=== PATIENT | female | born 1950 | race Caucasian/White ===

== ENCOUNTER 2017-01-24 13:17 | Inpatient (IN) | payer MEDICARE ==
[~2017-01-24] VITALS: Ht 160 cm; Wt 89.1 kg
[2017-01-24 13:19] VITALS: BP 149/70; PULSE 60; RESP 20; TEMP 97.8; O2SAT 94
--- NOTE | 2017-01-24 13:30 | PD ---
HPI Chief Complaint: Psychiatric Symptoms Time Seen by Provider: 13:29 Travel History International Travel<30 days: No Contact w/Intl Traveler<30days: No Traveled to known affect area: No History of Present Illness HPI 66 year-old female history of hypertension, A. fib, recent diagnosis of bipolar with psychosis, presents to emergency department all entirely for psychiatric evaluation. Patient was discharged 2 weeks ago from a psychiatric facility. It was in that facility that she was newly diagnosed with bipolar with acute psychosis. He was started on Haldol and lithium. She has been taking these as prescribed. The patient tells me that she lost her after 40 years of marriage. She is very sad and depressed. But she has been seeing people come into her house, through the blinds and set up tables. She states that they're playing cards in sitting on her scooter. She states she knows that they should not be real but they appear so real. She states she has threatened them and yellow them. She denies suicidal or homicidal ideations but states that she wants to hurt these people so they leave. She denies any recent illnesses, fever, or chills. She has no other symptoms to report. [facility] Past Medical History Cardiovascular Problems: Yes Cerebrovascular Accident: Yes Respiratory: Yes Social History Tobacco Use: No Allergies-Medications (Allergen,Severity, Reaction): Coded Allergies: No Known Allergies (Unverified , 01/24/17) Reported Meds & Prescriptions Reported Meds & Active Scripts Active Reported Glucosamine-Chondroitin 500-400 Mg Tab 3 Tab PO DAILY Centrum (Multiple Vitamins W/ Minerals) 1 Chew 1 Tab CHEW DAILY [tumeric] 1 Cap PO DAILY Cefuroxime (Cefuroxime Axetil) 500 Mg Tab 500 Mg PO BID Losartan (Losartan Potassium) 25 Mg Tab 25 Mg PO DAILY Haloperidol 5 Mg Tab 5 Mg PO BID Temazepam 15 Mg Cap 15 Mg PO HS PRN Eliquis (Apixaban) 5 Mg Tab 5 Mg PO BID Metoprolol Tartrate 25 Mg Tab 25 Mg PO BID Furosemide 40 Mg Tab 40 Mg PO DAILY Benztropine (Benztropine Mesylate) 0.5 Mg Tab 0.5 Mg PO BID [place] Carbonate 300 Mg Cap 300 Mg PO BID Magnesium Citrate 100 Mg Tab 250 Mg PO DAILY PRN Review of Systems Except as stated in HPI: all other systems reviewed are Neg Physical Exam Narrative GENERAL: Well-nourished elderly female patient, very pleasant, cooperative, in no acute distress. SKIN: Focused skin assessment warm/dry. HEAD: Atraumatic. Normocephalic. EYES: Pupils equal and round. No scleral icterus. No injection or drainage. ENT: No nasal bleeding or discharge. Mucous membranes pink and moist. NECK: Trachea midline. No JVD. CARDIOVASCULAR: Regular rate and irregular rhythm. No murmur appreciated. RESPIRATORY: No accessory muscle use. Clear to auscultation. Breath sounds equal bilaterally. GASTROINTESTINAL: Abdomen soft, non-tender, nondistended. Hepatic and splenic margins not palpable. MUSCULOSKELETAL: No obvious deformities. No clubbing. No cyanosis. No edema. NEUROLOGICAL: Awake and alert. No obvious cranial nerve deficits. Motor grossly within normal limits. Normal speech. Data Data Last Documented VS Vital Signs Date Time Temp Pulse Resp B/P (MAP) Pulse Ox O2 Delivery O2 Flow Rate FiO2 01/24/17 13:32 18 01/24/17 13:19 97.8 60 149/70 (96) 94 Room Air Orders Orders Complete Blood Count With Diff (01/24/17 13:38) Basic Metabolic Panel (Bmp) (01/24/17 13:38) Urinalysis - C+S If Indicated (01/24/17 13:38) Psych Screen (01/24/17 13:38) Drug Screen, Random Urine (01/24/17 13:38) Alcohol (Ethanol) (01/24/17 13:38) [place] (Li) (01/24/17 14:20) Labs Laboratory Tests Test 01/24/17 13:51 01/24/17 14:30 White Blood Count 9.2 TH/MM3 Red Blood Count 4.00 MIL/MM3 Hemoglobin 12.3 GM/DL Hematocrit 37.5 % Mean Corpuscular Volume 93.8 FL Mean Corpuscular Hemoglobin 30.7 PG Mean Corpuscular Hemoglobin Concent 32.7 % Red Cell Distribution Width 14.0 % Platelet Count 242 TH/MM3 Mean Platelet Volume 7.1 FL Neutrophils (%) (Auto) 77.3 % Lymphocytes (%) (Auto) 14.0 % Monocytes (%) (Auto) 5.1 % Eosinophils (%) (Auto) 3.1 % Basophils (%) (Auto) 0.5 % Neutrophils # (Auto) 7.1 TH/MM3 Lymphocytes # (Auto) 1.3 TH/MM3 Monocytes # (Auto) 0.5 TH/MM3 Eosinophils # (Auto) 0.3 TH/MM3 Basophils # (Auto) 0.0 TH/MM3 CBC Comment DIFF FINAL Differential Comment Blood Urea Nitrogen 20 MG/DL Creatinine 1.35 MG/DL Random Glucose 186 MG/DL Calcium Level 9.0 MG/DL Sodium Level 142 MEQ/L Potassium Level 3.7 MEQ/L Chloride Level 107 MEQ/L Carbon Dioxide Level 28.8 MEQ/L Anion Gap 6 MEQ/L Estimat Glomerular Filtration Rate 39 ML/MIN Ethyl Alcohol Level LESS THAN 3 MG/DL [place] Level 0.6 MEQ/L MDM Medical Decision Making Medical Screen Exam Complete: Yes Emergency Medical Condition: Yes Medical Record Reviewed: Yes Differential Diagnosis Mood disorder versus personality disorder versus acute psychosis versus electrolyte abnormality versus UTI Narrative Course 66 year-old female presents to the emergency department voluntarily for psychiatric evaluation. Patient appears without distress. She is very call and cooperative during my time with her. She states that this time she has not seen the people or hearing them but they were in her house last night. Laboratory Tests Test 01/24/17 13:51 01/24/17 14:30 White Blood Count 9.2 TH/MM3 Red Blood Count 4.00 MIL/MM3 Hemoglobin 12.3 GM/DL Hematocrit 37.5 % Mean Corpuscular Volume 93.8 FL Mean Corpuscular Hemoglobin 30.7 PG Mean Corpuscular Hemoglobin Concent 32.7 % Red Cell Distribution Width 14.0 % Platelet Count 242 TH/MM3 Mean Platelet Volume 7.1 FL Neutrophils (%) (Auto) 77.3 % Lymphocytes (%) (Auto) 14.0 % Monocytes (%) (Auto) 5.1 % Eosinophils (%) (Auto) 3.1 % Basophils (%) (Auto) 0.5 % Neutrophils # (Auto) 7.1 TH/MM3 Lymphocytes # (Auto) 1.3 TH/MM3 Monocytes # (Auto) 0.5 TH/MM3 Eosinophils # (Auto) 0.3 TH/MM3 Basophils # (Auto) 0.0 TH/MM3 CBC Comment DIFF FINAL Differential Comment Blood Urea Nitrogen 20 MG/DL Creatinine 1.35 MG/DL Random Glucose 186 MG/DL Calcium Level 9.0 MG/DL Sodium Level 142 MEQ/L Potassium Level 3.7 MEQ/L Chloride Level 107 MEQ/L Carbon Dioxide Level 28.8 MEQ/L Anion Gap 6 MEQ/L Estimat Glomerular Filtration Rate 39 ML/MIN Ethyl Alcohol Level LESS THAN 3 MG/DL [place] Level 0.6 MEQ/L Patient has not yet given us urine, however at this time she will be medically cleared to undergo psychiatric screening for further evaluation and disposition. Mental health screening discussed with the patient. Psychiatric screen ordered. Diagnosis Primary Impression: Hallucinations Condition: Stable Nkechi Perdomo Jan 24, 2017 13:30
[2017-01-24] MEDS ORDERED: LITH300C2 PO (13:44)
[2017-01-24] MEDS ORDERED: HALO5TAB PO (13:50)
[2017-01-24] MEDS ORDERED: APIX5TAB PO (13:50)
[2017-01-24] MEDS ORDERED: TEMA15CA PO (13:50)
[2017-01-24] MEDS ORDERED: BENZ0.5T PO (13:50)
[2017-01-24] MEDS ORDERED: LOSA25TA PO (13:50)
[2017-01-24] MEDS ORDERED: FURO40TA PO (13:50)
[2017-01-24] MEDS ORDERED: CEFU1TAB20 PO (13:50)
[2017-01-24] MEDS ORDERED: CENTCHW4 CHEW (13:50)
[2017-01-24] MEDS ORDERED: tumeric PO (13:50)
[2017-01-24] MEDS ORDERED: MAGN100T2 PO (13:50)
[2017-01-24] MEDS ORDERED: GLUC500T4 PO (13:50)
[2017-01-24] MEDS ORDERED: METO25TA3 PO (13:50)
[2017-01-24 14:01] LABS: AUTOMATED NEUTROPHIL # 7.1 TH/MM3 (1.8-7.7); BASOPHIL % 0.5 % (0.0-2.0); EOSINOPHIL # 0.3 TH/MM3 (0-0.4); EOSINOPHIL % 3.1 % (0.0-4.0); HEMATOCRIT 37.5 % (35.0-46.0); HEMO FLAGS DIFF FINAL; LYMPHOCYTE # 1.3 TH/MM3 (1.0-4.8); MEAN CELL VOLUME 93.8 FL (80.0-100.0); MEAN CORPUSCULAR HEMOGLOBIN 30.7 PG (27.0-34.0); MEAN CORPUSCULAR HGB CONC 32.7 % (32.0-36.0); MONO % 5.1 % (0.0-8.0); NEUT % 77.3 % (16.0-70.0); PLATELET COUNT 242 TH/MM3 (150-450); WHITE BLOOD COUNT 9.2 TH/MM3 (4.0-11.0)
[2017-01-24 14:20] LABS: ANION GAP 6 MEQ/L (5-15); BICARBONATE 28.8 MEQ/L (21.0-32.0); BLOOD UREA NITROGEN 20 MG/DL (7-18); CHLORIDE 107 MEQ/L (98-107); GLOMERULAR FILTRATION RATE 39 ML/MIN (>89); POTASSIUM 3.7 MEQ/L (3.5-5.1); SODIUM (NA) 142 MEQ/L (136-145)
[2017-01-24 14:32] LABS: ALCOHOL LESS THAN 3 MG/DL (0-5)
[2017-01-24 16:50] VITALS: BP 114/55; PULSE 61; RESP 18; O2SAT 96
[2017-01-24 17:51] LABS: BACTERIA, URINE RARE /hpf; BLOOD, URINE SMALL (NEG); COMMENT (UR) CULT NOT INDICATED; CULTURE IF INDICATED CULT NOT INDICATED; GLUCOSE,URINE NEG (NEG); HYALINE CAST, URINE 13 /lpf (RARE); KETONE, URINE NEG (NEG); MUCUS URINE FEW /lpf (OCC); NITRITE,URINE NEG (NEG); SQUAMOUS EPITHELIAL CELL URINE 4 /hpf (0-5); URINE COLOR YELLOW (YELLW/STRAW)
[2017-01-25 08:14] VITALS: BP 141/64; PULSE 55; RESP 18; TEMP 97.8; O2SAT 98
[2017-01-25] MEDS: APIXABAN 5 MG TABLET PO SCH ×2 (09:55→21:00)
[2017-01-25] MEDS: FUROSEMIDE 40 MG TAB PO SCH (09:55)
[2017-01-25] MEDS: LITHIUM CARBONATE 300 MG TAB PO SCH ×2 (09:55→21:00)
[2017-01-25] MEDS: METOPROLOL TARTRATE 25 MG TAB PO SCH ×2 (09:55→21:00)
[2017-01-25] MEDS: LOSARTAN 25 MG TAB PO SCH (09:55)
[2017-01-25] MEDS: CEFUROXIME AXETIL 500 MG TAB PO SCH ×2 (09:56→21:00)
[2017-01-25] MEDS: HALOPERIDOL 5 MG TAB PO SCH ×2 (09:56→21:00)
[2017-01-25] MEDS: BENZTROPINE MESYLATE 1 MG TAB PO SCH ×2 (09:56→21:00)
[2017-01-25 19:55] VITALS: BP 120/58; PULSE 55; RESP 18; TEMP 97.8; O2SAT 97
[2017-01-25 21:02] VITALS: BP 136/64; PULSE 51; RESP 18; O2SAT 97
[2017-01-25] MEDS ORDERED: MAGNESIUM HYDROXIDE SUSP 30 ML CUP PO PRN (21:30)
[2017-01-25] MEDS ORDERED: ALUMINUM/MAGNESIUM/SIMETH 30 ML CUP PO PRN (21:30)
[2017-01-25 22:45] VITALS: BP 180/84; PULSE 60; RESP 19; TEMP 97.4; O2SAT 96
[2017-01-25 23:45] VITALS: BP 144/75; PULSE 59
[2017-01-26 04:15] VITALS: BP 140/75; PULSE 80; RESP 18
[2017-01-26 06:35] VITALS: BP 141/63; PULSE 55; RESP 16; TEMP 97.2; O2SAT 100
[2017-01-26] MEDS: METOPROLOL TARTRATE 25 MG TAB PO SCH ×2 (09:00→21:11)
[2017-01-26] MEDS: LITHIUM CARBONATE 300 MG TAB PO SCH ×2 (10:04→21:14)
[2017-01-26] MEDS: APIXABAN 5 MG TABLET PO SCH ×2 (10:05→21:12)
[2017-01-26] MEDS: CEFUROXIME AXETIL 500 MG TAB PO SCH ×2 (10:05→21:13)
[2017-01-26] MEDS: FUROSEMIDE 40 MG TAB PO SCH (10:06)
[2017-01-26] MEDS: BENZTROPINE MESYLATE 1 MG TAB PO SCH ×2 (10:06→21:12)
[2017-01-26] MEDS: HALOPERIDOL 5 MG TAB PO SCH ×2 (10:06→21:13)
[2017-01-26] MEDS: LOSARTAN 25 MG TAB PO SCH (10:06)
[2017-01-26] MEDS ORDERED: TURM500C4 PO (12:29)
--- NOTE | 2017-01-26 12:40 | HHI.HP ---
Provisional Diagnosis Admission Date Jan 25, 2017 at 20:54 [place] I. Bipolar disorder Certification of Person's Competence To Provide Express and Informed Consent I have personally examined Deidra Wong , a person being served at [facility] on, Jan 26, 2017 12:18. Express and informed consent means consent voluntarily given in writing, by a competent person, after sufficient explanation and disclosure of the subject matter involved to enable the person to make a knowing and willful decision without any element of force, fraud, deceit, duress, or other form of constraint or coercion. This person is 18 years of age or older, is not now known to be incompetent to consent to treatment with a guardian advocate, and does not have a health care surrogate or proxy currently making medical treatment decisions. I have found this person to be one of the following: [] Competent to provide express and informed consent, as defined above, for voluntary admission to this facility and is competent to provide express and informed consent for treatment. He/she has the consistent capacity to make well reasoned, willful, and knowing decisions concerning his or her medical or mental health treatment. The person fully and consistently understands the purpose of the admission for examination/placement and is fully capable of personally exercising all rights assured [place] [] Incompetent to provide express and informed consent to voluntary admission, and this is incompetent to provide express and informed consent to treatment. The person must be transferred to involuntary status and a petition for a guardian advocate filed with the Circuit Court. [X] Refusing to provide express and informed consent to voluntary admission but is competent to provide express and informed consent for treatment. The person must be discharged or transferred to involuntary status. Form shall be completed within 24 hours of a person's arrival at the receiving facility and filed in the clinical record of each person: 1. Admitted on a voluntary basis 2. Permitted to provide express and informed consent to his/her own treatment 3. Allowed to transfer from involuntary to voluntary status 4. Prior to permitting a person to consent to his or her own treatment after having been previously found incompetent to consent to treatment. History of Present Illness Capacity: Has Capacity HPI The patient is a 66 year-old woman, domiciled with her son, , with psychiatric history of recently diagnosed bipolar disorder, she was recently hospitalized in [facility], she has established outpatient care in [facility], she is on Haldol 5 mg twice a day, lithium 300 mg twice a day her lithium level here at [facility] in the ER was 0.5, And months ago, medical history of history of hypertension, A. fib, prescribed. The patient tells me that she lost her after 40 years of marriage. On psychiatric evaluation today patient reports that She is very sad and depressed. But she has been seeing people come into her house, through the blinds and set up tables. She states that they 're playing cards in sitting on her scooter. She states she knows that they should not be real but they appear so real. She states she has threatened them and yellow them. She denies suicidal or homicidal ideations but states that she wants to hurt these people so they leave. Her daughter, Donna cross by phone for collateral information, added that since the patient was discharged from her last hospitalization she has been continuously having visual hallucinations that every time has been more intensive and more frequent. She says that the patient also has been talking to herself, very disorganized, engaging herself in a lot of activities at nighttime, sleeping very poorly and sometimes not taking her medications. She says that her visual hallucinations are very anxiety provoking and the patient is very afraid and paranoid about her perceptual disturbances. The patient denies the use of alcohol and illicit drugs. She is oriented 3, no attention deficit or fluctuation of consciousness at this moment. Review of Systems Constitutional: DENIES: Diaphoretic episodes, Fatigue, Fever, Weight gain, Weight loss, Chills, Dizziness, Change in appetite, Night Sweats Endocrine: DENIES: Abnorml menstrual pattern, Heat/cold intolerance, Polydipsia , Polyuria, Polyphagia Eyes: DENIES: Blurred vision, Diplopia, Eye inflammation, Eye pain, Vision loss , Photosensitivity, Double Vision Ears, nose, mouth, throat: DENIES: Tinnitus, Hearing loss, Vertigo, Nasal discharge, Oral lesions, Throat pain, Hoarseness, Ear Pain, Running Nose, Epistaxis, Sinus Pain, Toothache, Odynophagia Respiratory: DENIES: Apneas, Cough, Snoring, Wheezing, Hemoptysis, Sputum production, Shortness of breath Cardiovascular: DENIES: Chest pain, Palpitations, Syncope, Dyspnea on Exertion , PND, Lower Extremity Edema, Orthopnea, Claudication Gastrointestinal: DENIES: Abdominal pain, Black stools, Bloody stools, Constipation, Diarrhea, Nausea, Vomiting, Difficulty Swallowing, Anorexia Musculoskeletal: DENIES: Joint pain, Muscle aches, Stiffness, Joint Swelling, Back pain, Neck pain Integumentary: DENIES: Abnormal pigmentation, Pruritus, Rash, Nail changes, Breast masses, Breast skin changes, Nipple discharge Hematologic/lymphatic: DENIES: Bruising, Lymphadenopathy Immunologic/allergic: DENIES: Eczema, Urticaria Neurologic: DENIES: Abnormal gait, Headache, Localized weakness, Paresthesias, Seizures, Speech Problems, Tremor, Poor Balance Psychiatric: COMPLAINS OF: Anxiety, Mood changes, Depression, Hallucinations, Delusions Past Psych History Violence risk - self (6 mos) Increased Substance Abuse History Drugs/Alcohol past 12 months Patient denies the use of alcohol and illicit drugs Past Family Social History Coded Allergies: No Known Allergies (Unverified , 01/24/17) Reported Medications Magnesium Citrate (Magnesium Citrate) 100 Mg Tab, 250 MG PO DAILY Y for CONSTIPATION, TAB 0 Refills 01/24/17 Glucosamine-Chondroitin (Glucosamine-Chondroitin) 500-400 Mg Tab, 3 TAB PO DAILY for Herbal Supplements, TAB 0 Refills 01/24/17 Multiple Vitamins W/ Minerals (Centrum) 1 Chew, 1 TAB CHEW DAILY for Nutritional Supplement, TAB 0 Refills 01/24/17 [tumeric] No Conflict Check, 1 CAP PO DAILY 01/24/17 Cefuroxime (Cefuroxime) 500 Mg Tab, 500 MG PO BID for Infection, TAB 0 Refills 01/24/17 Losartan (Losartan) 25 Mg Tab, 25 MG PO DAILY for Blood Pressure Management, # 30 TAB 0 Refills 01/24/17 Haloperidol (Haloperidol) 5 Mg Tab, 5 MG PO BID, TAB 0 Refills 01/24/17 Temazepam (Temazepam) 15 Mg Cap, 15 MG PO HS Y for INSOMNIA, #30 CAP 0 Refills 01/24/17 Apixaban (Eliquis) 5 Mg Tab, 5 MG PO BID for Blood Clot Prevention, #60 TAB 0 Refills 01/24/17 Metoprolol Tartrate (Metoprolol Tartrate) 25 Mg Tab, 25 MG PO BID, #60 TAB 0 Refills 01/24/17 Furosemide (Furosemide) 40 Mg Tab, 40 MG PO DAILY, #30 TAB 0 Refills 01/24/17 Benztropine (Benztropine) 0.5 Mg Tab, 0.5 MG PO BID, #60 TAB 0 Refills 01/24/17 [place] Carbonate ([place] Carbonate) 300 Mg Cap, 300 MG PO BID, CAP 0 Refills 01/24/17 Current Medications Medications (Trade) Dose Ordered Sig/Dc Route Start Time Stop Time Status Last Admin (Eliquis) 5 mg BID PO 01/25/17 09:00 01/26/17 10:05 (Cogentin) 0.5 mg BID PO 01/25/17 09:00 01/26/17 10:06 (Ceftin) 500 mg BID PO 01/25/17 09:00 01/26/17 10:05 (Lasix) 40 mg DAILY PO 01/25/17 09:00 01/26/17 10:06 (Haldol) 5 mg BID PO 01/25/17 09:00 01/26/17 10:06 (Lithotabs) 300 mg BID PO 01/25/17 09:00 01/26/17 10:04 (Cozaar) 25 mg DAILY PO 01/25/17 09:00 01/26/17 10:06 (Lopressor) 25 mg BID PO 01/25/17 09:00 01/25/17 09:55 (Tylenol) 650 mg Q4H PRN PO 01/25/17 21:30 (Milk Of Magnesia Liq) 30 ml DAILY PRN PO 01/25/17 21:30 (Mag-Al Plus Susp Liq) 30 ml Q6H PRN PO 01/25/17 21:30 (Ativan) 1 mg Q8H PRN PO 01/25/17 21:30 Family History She has a son that is bipolar Social History Patient was born and raised in [place], she lives with her son, he has 2 kids, she is , unemployed, highest level of education is high school Patient's Strengths (min. 2) Family support Physical Exam Vital Signs Vital Signs Date Time Temp Pulse Resp B/P (MAP) Pulse Ox O2 Delivery O2 Flow Rate FiO2 01/26/17 06:35 97.2 55 16 141/63 (89) 100 01/25/17 21:02 Room Air Lab Results Test 01/25/17 15:00 [place] Level 0.5 MEQ/L Mental Status Examination Appearance woman, overweight, superficially cooperative, guarded Speech: Hesitant Orientation: x3 Memory: Unremarkable Thought Process: Flight of Ideas, Goal Directed, Linear Thought Content: Bizarre thinking, Paranoid Language Fluent and spontaneous Fund of Knowledge Adequate for level of education Hallucination Type: Visual Attention and Concentration: Good Suicidal Ideation: No Previous Suicide Attempts: No Homicidal Ideation: No Previous Homicide Attempts: No Judgment: Poor Affect: Irritable Mood: Sad Motor Activity: Normal gait Assessment & Plan Problem List: (1) Unspecified psychosis ICD Codes: F29 - Unspecified psychosis not due to a substance or known physiological condition Assessment & Plan: On psychiatric evaluation today the patient is irritable, with guarded, just superficially cooperative with evaluation. Patient reports ongoing increasing in intensity, frequency visual hallucinations of people coming inside her house. Patient describes these visual hallucinations as very vivid, frightening and anxiety provoking. Patient also reports depression in the context of recent of her months ago. She denies suicidal and was ideation. Her daughter adds that ideationally to the visual hallucinations that seems to be perturbing the patient every day, patient also has been disorganized, talking to herself, very paranoid, engaging in multiple time- consuming and purposeless activity at nighttime, sleeping poorly and most probably not taking her medications. She also describes the patient has been confused and disoriented frequently. Patient is not a be admitted in psychiatry for stabilization and safety. Will consult hospitalist to continue investigating potential medical causes of psychosis and delirium. Reconsult psychiatry for second opinion. Delirium versus psychosis versus adonay are in the differential. Will restart lithium 300 mg twice a day, Haldol 5 mg twice a day. Extensive support, motivation and psychoeducation provided. tar pot worker for psychosocial assessment, to coordinate a safe discharge, individual and group psychotherapy. Assessment & Plan Estimated LOS: Jer Singleton MD Jan 26, 2017 12:40
--- NOTE | 2017-01-26 15:54 | PD.CONS ---
[facility] Requested By Dr. Sánchez Reason for Consult Hypertension and medical management Primary Care Physician Moncho Gaxiola MD Diagnoses: History of Present Illness 66-year-old female history of bipolar disorder, age fibrillation, hypertension who presented to you to psychosis in inpatient psychiatry unit. [facility] consulted for hypertension and medical management. Patient had no concerns expect she wants to go home. All review of systems reviewed and all negative. Past Family Social History Allergies: Coded Allergies: No Known Allergies (Unverified , 01/24/17) Past Medical History Hypertension atrial of fibrillation Past Surgical History Denying past surgical history Reported Medications Current Medications Apixaban (Eliquis) 5 mg BID PO Last administered on 01/26/17 10:05; Start at 09:00 Benztropine Mesylate (Cogentin) 0.5 mg BID PO Last administered on 01/26/17 10 :06; Start 01/25/17 at 09:00 Cefuroxime Axetil (Ceftin) 500 mg BID PO Last administered on 01/26/17 10:05; Start 01/25/17 at 09:00 Furosemide (Lasix) 40 mg DAILY PO Last administered on 01/26/17 10:06; Start 01/25/17 at 09:00 Haloperidol (Haldol) 5 mg BID PO Last administered on 01/26/17 10:06; Start at 09:00 [place] Carbonate (Lithotabs) 300 mg BID PO Last administered on 01/26/17 10: 04; Start 01/25/17 at 09:00 Losartan Potassium (Cozaar) 25 mg DAILY PO Last administered on 01/26/17 10:06 ; Start 01/25/17 at 09:00 Metoprolol Tartrate (Lopressor) 25 mg BID PO Last administered on 01/25/17 09: 55; Start 01/25/17 at 09:00 Acetaminophen (Tylenol) 650 mg Q4H PRN PO Pain 1-5 or Temp >101F; Start at 21:30 Magnesium Hydroxide (Milk Of Magnesia Liq) 30 ml DAILY PRN PO CONSTIPATION; Start 01/25/17 at 21:30 Al Hydrox/Mg Hydrox/Simethicone (Mag-Al Plus Susp Liq) 30 ml Q6H PRN PO DYSPEPSIA; Start 01/25/17 at 21:30 Lorazepam (Ativan) 1 mg Q8H PRN PO ANXIETY &/OR INSOMNIA; Start 01/25/17 at 21: 30 Active Ordered Medications Current Medications Apixaban (Eliquis) 5 mg BID PO Last administered on 01/26/17 10:05; Start at 09:00 Benztropine Mesylate (Cogentin) 0.5 mg BID PO Last administered on 01/26/17 10 :06; Start 01/25/17 at 09:00 Cefuroxime Axetil (Ceftin) 500 mg BID PO Last administered on 01/26/17 10:05; Start 01/25/17 at 09:00 Furosemide (Lasix) 40 mg DAILY PO Last administered on 01/26/17 10:06; Start 01/25/17 at 09:00 Haloperidol (Haldol) 5 mg BID PO Last administered on 01/26/17 10:06; Start at 09:00 [place] Carbonate (Lithotabs) 300 mg BID PO Last administered on 01/26/17 10: 04; Start 01/25/17 at 09:00 Losartan Potassium (Cozaar) 25 mg DAILY PO Last administered on 01/26/17 10:06 ; Start 01/25/17 at 09:00 Metoprolol Tartrate (Lopressor) 25 mg BID PO Last administered on 01/25/17 09: 55; Start 01/25/17 at 09:00 Acetaminophen (Tylenol) 650 mg Q4H PRN PO Pain 1-5 or Temp >101F; Start at 21:30 Magnesium Hydroxide (Milk Of Magnesia Liq) 30 ml DAILY PRN PO CONSTIPATION; Start 01/25/17 at 21:30 Al Hydrox/Mg Hydrox/Simethicone (Mag-Al Plus Susp Liq) 30 ml Q6H PRN PO DYSPEPSIA; Start 01/25/17 at 21:30 Lorazepam (Ativan) 1 mg Q8H PRN PO ANXIETY &/OR INSOMNIA; Start 01/25/17 at 21: 30 Family History Past family history of review. Denied; Social History Denied any alcohol, tobacco or illicit drug use. Physical Exam Vital Signs Vital Signs Date Time Temp Pulse Resp B/P (MAP) Pulse Ox O2 Delivery O2 Flow Rate FiO2 01/26/17 06:35 97.2 55 16 141/63 (89) 100 01/26/17 04:15 80 18 140/75 (96) 01/25/17 23:45 59 144/75 (98) 01/25/17 22:45 97.4 60 19 180/84 (116) 96 01/25/17 21:02 51 18 136/64 (88) 97 Room Air 01/25/17 19:55 97.8 55 18 120/58 (78) 97 Room Air Physical Exam GENERAL: This is a well-nourished, well-developed patient, in no apparent distress. SKIN: No rashes, ecchymoses or lesions. Cool and dry. HEAD: Atraumatic. Normocephalic. No temporal or scalp tenderness. EYES: Pupils equal round and reactive. Extraocular motions intact. No scleral icterus. No injection or drainage. ENT: Nose without bleeding, purulent drainage or septal hematoma. Throat without erythema, tonsillar hypertrophy or exudate. Uvula midline. Airway patent. NECK: Trachea midline. No JVD or lymphadenopathy. Supple, nontender, no meningeal signs. CARDIOVASCULAR: Regular rate and rhythm without murmurs, gallops, or rubs. RESPIRATORY: Clear to auscultation. Breath sounds equal bilaterally. No wheezes , rales, or rhonchi. GASTROINTESTINAL: Abdomen soft, non-tender, nondistended. No hepato-splenomegaly , or palpable masses. No guarding. MUSCULOSKELETAL: Extremities without clubbing, cyanosis, or edema. No joint tenderness, effusion, or edema noted. No calf tenderness. Negative Homans sign bilaterally. NEUROLOGICAL: Awake and alert. Cranial nerves II through XII intact. Motor and sensory grossly within normal limits. Five out of 5 muscle strength in all muscle groups. Normal speech. Result Diagram: 01/24/17 1351 01/24/17 1351 Assessment and Plan Assessment and Plan 66-year-old female with a history of atrial fibrillation, hypertension, and bipolar disorder who presented with psychosis Bipolar disorder -The managed by psychiatrist. Hypertension -Patient had multiple readings that were normotensive with mild elevated blood pressure. Most likely secondary to agitation. We'll continue with home regimen. Adjust as needed. Atrial fibrillation -Home medication already resumed. Continue with home medication. DVT prophylaxis -Patient on Eliquis. Discussed Condition With patient Anabella Escobar MD Jan 26, 2017 15:54
[2017-01-26 18:24] VITALS: BP 149/66; PULSE 67; RESP 17; TEMP 97.6; O2SAT 98
[2017-01-27 06:00] VITALS: BP 125/71; PULSE 63; RESP 18; TEMP 98.1; O2SAT 96
[2017-01-27 08:18] LABS: BICARBONATE 29.8 MEQ/L (21.0-32.0); POTASSIUM 3.9 MEQ/L (3.5-5.1)
[2017-01-27] MEDS: HALOPERIDOL 5 MG TAB PO SCH ×2 (09:00→21:30)
[2017-01-27] MEDS: FUROSEMIDE 40 MG TAB PO SCH (09:00)
[2017-01-27] MEDS: METOPROLOL TARTRATE 25 MG TAB PO SCH ×2 (09:49→21:30)
[2017-01-27] MEDS: BENZTROPINE MESYLATE 1 MG TAB PO SCH ×2 (09:49→21:31)
[2017-01-27] MEDS: LOSARTAN 25 MG TAB PO SCH (09:49)
[2017-01-27] MEDS: CEFUROXIME AXETIL 500 MG TAB PO SCH ×2 (09:49→21:31)
[2017-01-27] MEDS: LITHIUM CARBONATE 300 MG TAB PO SCH ×2 (09:50→21:31)
[2017-01-27] MEDS: APIXABAN 5 MG TABLET PO SCH ×2 (09:50→21:30)
--- NOTE | 2017-01-27 12:23 | HHI.PR ---
Subjective Remarks No acute events overnight. Afebrile, vital signs stable. Blood pressure improving today. Patient with no complaints at this time. States she would like to go home. Objective Vitals Vital Signs Date Time Temp Pulse Resp B/P (MAP) Pulse Ox O2 Delivery O2 Flow Rate FiO2 01/27/17 06:00 98.1 63 18 125/71 (89) 96 01/26/17 18:24 97.6 67 17 149/66 (93) 98 I/O 01/26/17 01/26/17 01/26/17 01/27/17 01/27/17 01/27/17 07:00 15:00 23:00 07:00 15:00 23:00 Intake Total 480 ml 360 ml Balance 480 ml 360 ml Intake Oral 480 ml 360 ml Result Diagram: 01/24/17 1351 01/27/17 0657 Objective Remarks Gen.: No acute distress Head: Normocephalic. Atraumatic. EENT: Pupils equal round and reactive to light. Nose without drainage. Airway intact. Throat without injection. Cardiovascular: Irregular rate and regular rhythm. No murmurs, rubs or gallops. Respiratory: Lungs clear to auscultation bilaterally. No wheezes or rhonchi. Abdomen: Soft, nontender, nondistended. No peritoneal signs. Musculoskeletal: No gross deformities. No edema. Skin: No obvious rashes or erythema. Neuro: Sensory and motor grossly intact. Cranial nerves II through XII grossly intact. A/P Assessment and Plan 66-year-old female with a history of atrial fibrillation, hypertension, and bipolar disorder who presented with psychosis Bipolar disorder -The managed by psychiatrist. Hypertension -Patient had multiple readings that were normotensive with mild elevated blood pressure. Most likely secondary to agitation. We'll continue with home regimen. Adjust as needed. Blood pressure has greatly improved since admission. Atrial fibrillation -Home medication already resumed. Continue with home medication. Rate controlled at this time. Anticoagulated on Eliquis. JOELLEN -Creatinine elevated to 1.3 on admission, improved to 1.03. -Monitor periodically DVT prophylaxis -Patient on Eliquis. Discharge Planning Per Primary Serenity Rodríguez MD R3 Jan 27, 2017 12:23
--- NOTE | 2017-01-27 14:01 | HHI.PYPN ---
Subjective Remarks This is a request for second opinion. Admission note was reviewed and I agree with the history. Case was discussed with nursing and patient was evaluated. Patient is pleasant and cooperative during exam. She is grossly confused with a disorganized thought process. She admits to trouble with her memory. She is alert and oriented 1. Does not know where she is, does not know the date, does not know the president. She believes she is in her apartment at this time. She is compliant with her medications. Social with others, spending her time in the dayroom. Poor insight into admission Objective Alert: Yes [place]: Person Mood: Anxious Affect: Restricted Memory Intact: Immediate (impaired) Hallucinations: Auditory (voices of her ) Delusions: Yes Delusion Type: Paranoid (vigilant) Suicidal: Ideation (denies) Homicidal: Ideation (denies) Insight/Judgment Poor Labs Test 01/27/17 06:57 Blood Urea Nitrogen 19 MG/DL Creatinine 1.03 MG/DL Random Glucose 98 MG/DL Calcium Level 9.5 MG/DL Sodium Level 141 MEQ/L Potassium Level 3.9 MEQ/L Chloride Level 105 MEQ/L Carbon Dioxide Level 29.8 MEQ/L Anion Gap 6 MEQ/L Estimat Glomerular Filtration Rate 53 ML/MIN Vitals/IOs Vital Signs Date Time Temp Pulse Resp B/P (MAP) Pulse Ox O2 Delivery O2 Flow Rate FiO2 01/27/17 06:00 98.1 63 18 125/71 (89) 96 01/25/17 21:02 Room Air Intake and Output 01/27/17 01/27/17 01/28/17 08:00 16:00 00:00 Intake Total 360 ml Balance 360 ml Assessment & Plan Problem List: (1) Unspecified psychosis ICD Codes: F29 - Unspecified psychosis not due to a substance or known physiological condition Assessment & Plan I agree with the first opinion to continue petition. Criteria include aggression before admission and neurocognitive disorder Justification for Cont. Inpt. Patient will decompensate in a less restrictive setting Mark Corral DO Jan 27, 2017 14:01
[2017-01-27 18:27] VITALS: BP 133/65; PULSE 60; RESP 18; TEMP 98.1; O2SAT 98
[2017-01-27] MEDS: LORazepam 1 MG TAB PO PRN (22:42)
[2017-01-28] VITALS (7 sets, daily range): BP systolic 134–148; BP diastolic 60–71; PULSE 54–69; RESP 16–17; TEMP 97.6–98; O2SAT 95–98
[2017-01-28] MEDS: LOSARTAN 25 MG TAB PO SCH (09:22)
[2017-01-28] MEDS: HALOPERIDOL 5 MG TAB PO SCH ×2 (09:22→21:09)
[2017-01-28] MEDS: CEFUROXIME AXETIL 500 MG TAB PO SCH ×2 (09:22→21:09)
[2017-01-28] MEDS: METOPROLOL TARTRATE 25 MG TAB PO SCH ×2 (09:23→21:10)
[2017-01-28] MEDS: BENZTROPINE MESYLATE 1 MG TAB PO SCH ×2 (09:23→21:09)
[2017-01-28] MEDS: LITHIUM CARBONATE 300 MG TAB PO SCH ×2 (09:23→21:10)
[2017-01-28] MEDS: APIXABAN 5 MG TABLET PO SCH ×2 (09:23→21:09)
[2017-01-28] MEDS: FUROSEMIDE 40 MG TAB PO SCH (09:24)
--- NOTE | 2017-01-28 12:15 | HHI.PYPN ---
Subjective Remarks Patient was seen and case discussed with nursing. Patient is pleasant and cooperative with exam. Patient is alert and oriented 1. She is confabulating throughout the interview trying to answer questions appropriately. She becomes tearful recalling her and says she is bothered by his presence. She could not make out what he is saying. She denies visual hallucinations. Behaving well on the unit compliant with her medications. She admits today that she is hard of hearing Objective Alert: Yes [place]: Person Mood: Anxious Affect: Labile Memory Intact: Immediate (impaired) Hallucinations: Auditory (voices but nothing specific) Delusions: Yes Delusion Type: Paranoid (vigilant) Suicidal: Ideation (denies) Homicidal: Ideation (denies) Insight/Judgment Poor Vitals/IOs Vital Signs Date Time Temp Pulse Resp B/P (MAP) Pulse Ox O2 Delivery O2 Flow Rate FiO2 01/28/17 05:53 98.0 54 17 148/67 (94) 95 01/25/17 21:02 Room Air Intake and Output 01/28/17 01/28/17 01/29/17 08:00 16:00 00:00 Intake Total 0 ml 240 ml Balance 0 ml 240 ml Assessment & Plan Problem List: (1) Unspecified psychosis ICD Codes: F29 - Unspecified psychosis not due to a substance or known physiological condition Assessment & Plan Continue current treatment plan Justification for Cont. Inpt. Patient would decompensate in a less restrictive setting Mark Corral DO Jan 28, 2017 12:15
--- NOTE | 2017-01-28 15:40 | HHI.PR ---
Subjective Remarks Follow for medical management Patient had no complaints. She is very anxious to go home. Denied any chest pain, shortness of breathing, palpitation, or lightheadedness/dizziness. Objective Vitals Vital Signs Date Time Temp Pulse Resp B/P (MAP) Pulse Ox O2 Delivery O2 Flow Rate FiO2 01/28/17 14:20 69 16 134/60 (84) 95 01/28/17 13:20 62 16 145/68 (93) 01/28/17 05:53 98.0 54 17 148/67 (94) 95 01/28/17 05:31 98.0 54 17 148/67 (94) 98 01/27/17 18:27 98.1 60 18 133/65 (87) 98 I/O 01/27/17 01/27/17 01/27/17 01/28/17 01/28/17 01/28/17 07:00 15:00 23:00 07:00 15:00 23:00 Intake Total 360 ml 780 ml 240 ml Balance 360 ml 780 ml 240 ml Intake Oral 360 ml 780 ml 240 ml # Voids 1 Result Diagram: 01/24/17 1351 01/27/17 0657 Objective Remarks GENERAL: in NAD CARDIOVASCULAR: Regular rate and rhythm without murmurs, gallops, or rubs. RESPIRATORY: Breath sounds equal bilaterally. No accessory muscle use. GASTROINTESTINAL: Abdomen soft, non-tender, nondistended. MUSCULOSKELETAL: No cyanosis, or edema. BACK: Nontender without obvious deformity. No CVA tenderness. Medications and IVs Current Medications Apixaban (Eliquis) 5 mg BID PO Last administered on 01/28/17 09:23; Start at 09:00 Benztropine Mesylate (Cogentin) 0.5 mg BID PO Last administered on 01/28/17 09 :23; Start 01/25/17 at 09:00 Cefuroxime Axetil (Ceftin) 500 mg BID PO Last administered on 01/28/17 09:22; Start 01/25/17 at 09:00 Furosemide (Lasix) 40 mg DAILY PO Last administered on 01/28/17 09:24; Start 01/25/17 at 09:00 Haloperidol (Haldol) 5 mg BID PO Last administered on 01/28/17 09:22; Start at 09:00 [place] Carbonate (Lithotabs) 300 mg BID PO Last administered on 01/28/17 09: 23; Start 01/25/17 at 09:00 Losartan Potassium (Cozaar) 25 mg DAILY PO Last administered on 01/28/17 09:22 ; Start 01/25/17 at 09:00 Metoprolol Tartrate (Lopressor) 25 mg BID PO Last administered on 01/28/17 09: 23; Start 01/25/17 at 09:00 Acetaminophen (Tylenol) 650 mg Q4H PRN PO Pain 1-5 or Temp >101F; Start at 21:30 Magnesium Hydroxide (Milk Of Magnesia Liq) 30 ml DAILY PRN PO CONSTIPATION; Start 01/25/17 at 21:30 Al Hydrox/Mg Hydrox/Simethicone (Mag-Al Plus Susp Liq) 30 ml Q6H PRN PO DYSPEPSIA; Start 01/25/17 at 21:30 Lorazepam (Ativan) 1 mg Q8H PRN PO ANXIETY &/OR INSOMNIA Last administered on 22:42; Start 01/25/17 at 21:30 A/P Assessment and Plan 66-year-old female with a history of atrial fibrillation, hypertension, and bipolar disorder who presented with psychosis Bipolar disorder -Managed by psychiatrist. Hypertension -Patient had multiple readings that were normotensive with mild elevated blood pressure. Most likely secondary to agitation. We'll continue with home regimen. Adjust as needed. Atrial fibrillation -Continue home regimen. Renal sufficiency -Most likely secondary to dehydration. Resolved. DVT prophylaxis -Patient on Eliquis. Discharge Planning Patient is medically stable. We will sign off. Reconsult if needed. Anabella Escobar MD Jan 28, 2017 15:40
--- NOTE | 2017-01-28 17:22 | RADRPT ---
EXAM DATE/TIME: 01/28/2017 17:13 [facility] COMPARISON: No previous studies available for comparison. INDICATIONS : Fall. Bilateral hip pain but patient can stand. MEDICAL HISTORY : None. SURGICAL HISTORY : None. ENCOUNTER: Initial ACUITY: 1 day PAIN SCORE: 6/10 LOCATION: Bilateral hips FINDINGS: A two view examination of the left hip was performed. The primary and secondary trabecular pattern o f the femoral neck is intact. The hip joint is of normal width without significant sclerosis or bony hypertrophy. The acetabulum is grossly intact. CONCLUSION: Mild degenerative changes, negative for fracture. Moses Real MD FACR on January 28, 2017 at 17:20 Board Certified Radiologist. This report was verified electronically.
--- NOTE | 2017-01-28 17:23 | RADRPT ---
EXAM DATE/TIME: 01/28/2017 17:09 [facility] COMPARISON: No previous studies available for comparison. INDICATIONS : Fall. Bilateral hip pain but patient can stand. MEDICAL HISTORY : None. SURGICAL HISTORY : None. ENCOUNTER: Initial ACUITY: 1 day PAIN SCORE: 6/10 LOCATION: Bilateral hips FINDINGS: Examination of the right hip was performed with AP Pelvis. The primary and secondary trabecular renee arley of the femoral neck is intact. The hip joint is of normal width without significant sclerosis or bony hypertrophy. The acetabulum is grossly intact. CONCLUSION: Mild degenerative changes negative for fracture. Moses Real MD FACR on January 28, 2017 at 17:21 Board Certified Radiologist. This report was verified electronically.
[2017-01-29] VITALS (7 sets, daily range): BP systolic 99–119; BP diastolic 49–58; PULSE 60–93; RESP 17–18; TEMP 97.1–98.5; O2SAT 93–97
[2017-01-29] MEDS: LORazepam 1 MG TAB PO PRN (01:25)
[2017-01-29] MEDS: ACETAMINOPHEN 325 MG TAB PO PRN (01:35)
[2017-01-29] MEDS: CEFUROXIME AXETIL 500 MG TAB PO SCH ×2 (09:45→20:40)
[2017-01-29] MEDS: LOSARTAN 25 MG TAB PO SCH (09:45)
[2017-01-29] MEDS: METOPROLOL TARTRATE 25 MG TAB PO SCH ×2 (09:45→20:40)
[2017-01-29] MEDS: FUROSEMIDE 40 MG TAB PO SCH (09:45)
[2017-01-29] MEDS: LITHIUM CARBONATE 300 MG TAB PO SCH ×2 (09:45→20:40)
[2017-01-29] MEDS: HALOPERIDOL 5 MG TAB PO SCH ×2 (09:45→20:40)
[2017-01-29] MEDS: APIXABAN 5 MG TABLET PO SCH ×2 (09:46→20:40)
[2017-01-29] MEDS: BENZTROPINE MESYLATE 1 MG TAB PO SCH ×2 (09:47→20:40)
--- NOTE | 2017-01-29 14:55 | HHI.PYPN ---
Subjective Remarks Patient was seen today for psychiatric reevaluation along with medical student Tasha, she is calm, cooperative, pleasantly disoriented and confabulating. She reports good mood, she says that she's been doing good, she says that she is happy to be home. Denies suicidal and homicidal ideation, just oriented in person, disoriented in time and place. No agitation or aggressive behavior reported, compliant with her medications, no significant side effects. Review of Systems Other No somatic complaints Objective Alert: Yes [place]: Person Mood: Anxious Affect: Labile Memory Intact: Immediate (impaired) Hallucinations: Auditory (voices but nothing specific) Delusions: Yes Delusion Type: Paranoid (vigilant) Suicidal: Ideation (denies) Homicidal: Ideation (denies) Insight/Judgment Poor Vitals/IOs Vital Signs Date Time Temp Pulse Resp B/P (MAP) Pulse Ox O2 Delivery O2 Flow Rate FiO2 01/29/17 11:55 98.1 60 18 99/49 (66) 01/29/17 06:06 93 01/25/17 21:02 Room Air Intake and Output 01/29/17 01/29/17 01/30/17 08:00 16:00 00:00 Intake Total 360 ml 120 ml Balance 360 ml 120 ml Assessment & Plan Problem List: (1) Unspecified psychosis ICD Codes: F29 - Unspecified psychosis not due to a substance or known physiological condition Assessment & Plan: Continue current psychotropics Assessment & Plan Estimated LOS: days Justification for Cont. Inpt. Patient has an elevated asked to decompensate at a lower level of care Jer Sánchez MD Jan 29, 2017 14:55
[2017-01-30 06:06] VITALS: BP 114/58; PULSE 58; RESP 19; TEMP 98.3; O2SAT 95
--- NOTE | 2017-01-30 07:55 | HHI.PYPN ---
Subjective Remarks On psychiatric evaluation today the patient is calm, alert, cooperative, pleasantly demented. Patient says that she feels okay, denies depressive symptoms, patient things that she is at her house. She is disoriented in time and place. Denies suicidal and homicidal ideation, denies visual and auditory hallucination at this moment. I met with her son and daughter after [employer] this morning. Her son clarifies that the patient has been presenting memory deficit for several months now, but just in the last month her intrusiveness, denies behavior, paranoia, increased visual hallucination has progressed to a point that the patient is a danger to herself and others. The clarify that the patient doesn't have any previous psychiatric history, since the patient was diagnosed with bipolar disorder and is starting lithium and Haldol not much has changed in her behavior and thought process. She might maybe being even worse. I clarified to them that in my opinion the patient was most probably is demented rather than bipolar. I discussed with them the suspicion of patient having Lewy body dementia. Review of Systems Other No somatic complaints Objective Alert: Yes [place]: Person Mood: Anxious Affect: Labile Memory Intact: Immediate (impaired) Hallucinations: Auditory (voices but nothing specific) Delusions: Yes Delusion Type: Paranoid (vigilant) Suicidal: Ideation (denies) Homicidal: Ideation (denies) Insight/Judgment Poor Vitals/IOs Vital Signs Date Time Temp Pulse Resp B/P (MAP) Pulse Ox O2 Delivery O2 Flow Rate FiO2 01/30/17 06:06 98.3 58 19 114/58 (93) 95 Assessment & Plan Problem List: (1) Unspecified psychosis ICD Codes: F29 - Unspecified psychosis not due to a substance or known physiological condition (2) Major neurocognitive disorder ICD Codes: F03.90 - Unspecified dementia without behavioral disturbance Assessment & Plan: A she continues to show symptoms of disorganization, memory deficit, confusion, periodic agitation and aggressiveness, paranoia and auditory hallucinations. After conversation with daughter and son, I really suspect that the patient has and neurocognitive disorder rather than a mood disorder. Her presentation is quite concrete consistent with Lewy body dementia. Will consult neurology to rule out neurological causes of visual hallucinations and altered mental status. Order EKG for baseline QTC We'll start to taper down and lithium and Haldol. We'll start low doses of Seroquel 12.5 mg twice a day Assessment & Plan Estimated LOS: days Justification for Cont. Inpt. Patient hasn't ever recent danger to self and other due to the level of dementia /psychosis and needs to continue psychiatric hospitalization for stabilization Jer Sánchez MD Jan 30, 2017 07:54
[2017-01-30] MEDS: HALOPERIDOL 5 MG TAB PO SCH (09:00)
[2017-01-30] MEDS: CEFUROXIME AXETIL 500 MG TAB PO SCH ×2 (09:52→20:25)
[2017-01-30] MEDS: LOSARTAN 25 MG TAB PO SCH (09:52)
[2017-01-30] MEDS: LITHIUM CARBONATE 300 MG TAB PO SCH (09:53)
[2017-01-30] MEDS: APIXABAN 5 MG TABLET PO SCH ×2 (09:53→20:25)
[2017-01-30] MEDS: BENZTROPINE MESYLATE 1 MG TAB PO SCH ×2 (09:53→20:25)
[2017-01-30] MEDS: METOPROLOL TARTRATE 25 MG TAB PO SCH ×2 (09:54→20:26)
[2017-01-30] MEDS: FUROSEMIDE 40 MG TAB PO SCH (09:57)
[2017-01-30] MEDS ORDERED: PILL SPLITTER OTHER PRN (14:30)
[2017-01-30 16:45] VITALS: BP 103/55; PULSE 55; RESP 18; TEMP 98.2; O2SAT 94
[2017-01-30] MEDS: HALOPERIDOL 2 MG TAB PO SCH (20:26)
--- NOTE | 2017-01-30 20:35 | EKG ---
Date Performed: 01/30/2017 Time Performed: 11:14:31 PTAGE: 66 years EKG: SINUS BRADYCARDIA NONSPECIFIC ST & T-WAVE ABNORMALITY BORDERLINE ECG NO PREVIOUS TRACING DOCTOR: Aden Archibald Interpretating Date/Time 01/30/2017 20:34:49
[2017-01-30 21:00] VITALS: BP 107/58; PULSE 60
[2017-01-31] MEDS: LORazepam 1 MG TAB PO PRN (03:14)
[2017-01-31 06:21] VITALS: BP 96/55; PULSE 58; RESP 18; TEMP 97.2; O2SAT 98
[2017-01-31] MEDS: FUROSEMIDE 40 MG TAB PO SCH (09:00)
[2017-01-31] MEDS: CEFUROXIME AXETIL 500 MG TAB PO SCH ×2 (10:06→21:00)
[2017-01-31] MEDS: METOPROLOL TARTRATE 25 MG TAB PO SCH ×2 (10:06→21:00)
[2017-01-31] MEDS: LOSARTAN 25 MG TAB PO SCH (10:07)
[2017-01-31] MEDS: BENZTROPINE MESYLATE 1 MG TAB PO SCH ×2 (10:07→21:00)
[2017-01-31] MEDS: APIXABAN 5 MG TABLET PO SCH ×2 (10:07→21:00)
[2017-01-31] MEDS: HALOPERIDOL 2 MG TAB PO SCH (10:08)
[2017-01-31] MEDS: QUEtiapine FUMARATE 25 MG TAB PO SCH ×2 (10:08→12:00)
--- NOTE | 2017-01-31 14:57 | MB ---
cc: LINNETTE MATT MD DATE OF CONSULTATION: 01/31/2017 REASON FOR CONSULTATION: "please address help with potential neurological causes of new onset visual hallucinations, altered mental status and memory deficits." HISTORY OF PRESENT ILLNESS Miss Wong is a 66-year-old female who during the encounter was in deep sleep after she received Ativan because she was agitated and combative overnight, it was hard to wake her up from sleep. She tends to wake up and go back to sleep so the medical history is obtained from the RN and the medical records. The patient was recently diagnosed with bipolar disorder and she was started on Haldol and [place]. She has past medical history of hypertension, atrial fibrillation. She lives with her son. As per the psychiatrist and registered nurse, the patient was witnessed to have vivid colorful hallucinations with decline in memory and some gait difficulty that made the psychiatry attending and team suspect that this has dementia of Lewy body disease and they wanted neurological opinion about this. REVIEW OF SYSTEMS Unable to obtain but home her review of medical records state 12-point review of systems is negative except for what is stated in the history of present illness. PAST MEDICAL HISTORY As per medical records. 1. Hypertension 2. Diabetes 3. Hypertension 4. Atrial fibrillation. SOCIAL HISTORY Per medical record review, No alcohol or illicit drug abuse. FAMILY HISTORY: Her son is bipolar. ALLERGIES No known allergies. MEDICATIONS 1. Magnesium. 2. Losartan. 3. Haloperidol 4. Eliquis. 5. Metoprolol. 6. Furosemide LABORATORY DATA White blood count 9.2, hemoglobin 12.3. Sodium 141, potassium 3.9, anion gap 6. BUN 19, creatinine 1.03, magnesium level is at the lower end of normal at 0.05 (range is 0.5 to 1.5) UDS is negative. PHYSICAL EXAMINATION: GENERAL: The patient is in deep sleep, however, arousable, overweight NECK: No carotid bruits. No signs of meningeal irritation. RESPIRATORY: Clear to auscultation. No wheezes. CARDIOVASCULAR SYSTEM: Regular rate and rhythm. The patient is in deep sleep status post head of on for being combative overnight. She is arousable though but she cause back to sleep. Moves extremities equally but it was noted that she has infrequent intermittent myoclonic jerking of the upper part of the body and bilateral upper extremities. No facial twitches were noted. No signs of meningeal irritation or facial asymmetry. Reflexes 1+ bilateral symmetrical. Plantar bilaterally downgoing with a strong withdrawal reflex. DIAGNOSTIC IMPRESSION 1. Cognitive decline. 2. Reported witnessed visual hallucination episodes. 3. Gait instability as witnessed by the psychiatry team. 4. Myoclonic movements. 5. Recent diagnosis of bipolar on lithium and Haldol. ASSESSMENT: In view of the given history by the psychiatry team of a cognitive decline, visual hallucination and gait instability. I recommend that the patient be weaned off the medication to set a neuro cognitive exam as an outpatient and in the meantime I recommend an MRI of the brain without contrast and an EEG study. Thank you for the opportunity to participate in the care of your patient. Linnette Matt MD [facility]/yanet /2:12 PM /2:38 PM [place]
--- NOTE | 2017-01-31 16:33 | HHI.PYPN ---
Subjective Remarks Patient was seen today for psychiatric reevaluation, patient found in the recreational area of the unit, patient is poorly cooperative, she seems to be quite sedated, very sleepy, although, she says that she has been doing okay, reports good mood, she denies suicidal or homicidal ideation, she denies visual and auditory hallucinations. As per nurses, no behavioral dysregulation, no hostility, no agitation has been reported in the last shift. Patient is compliant with her medications, more sedated in the last hours. Review of Systems Other No somatic complaints Objective Alert: Yes [place]: Person Mood: Anxious Affect: Labile Memory Intact: Immediate (impaired) Hallucinations: Auditory (voices but nothing specific) Delusions: Yes Delusion Type: Paranoid (vigilant) Suicidal: Ideation (denies) Homicidal: Ideation (denies) Insight/Judgment Poor Vitals/IOs Vital Signs Date Time Temp Pulse Resp B/P (MAP) Pulse Ox O2 Delivery O2 Flow Rate FiO2 01/31/17 06:21 97.2 58 18 96/55 (69) 98 Assessment & Plan Problem List: (1) Unspecified psychosis ICD Codes: F29 - Unspecified psychosis not due to a substance or known physiological condition Assessment & Plan: Will discontinue completely Haldol 2 mg daily, we'll increase Seroquel to 25 mg for behavioral dysregulation, visual hallucinations and paranoia. Neurology consult appreciated. (2) Major neurocognitive disorder ICD Codes: F03.90 - Unspecified dementia without behavioral disturbance Assessment & Plan Estimated LOS: days Justification for Cont. Inpt. Patient will continue the process psychiatric hospitalization for stabilization and safety. Jer Sánchez MD Jan 31, 2017 16:33
[2017-01-31 21:30] VITALS: BP 145/65; PULSE 58; RESP 18; O2SAT 92
[2017-02-01 06:00] VITALS: BP 120/80; PULSE 77; RESP 18; TEMP 97.3; O2SAT 96
[2017-02-01] MEDS: FUROSEMIDE 40 MG TAB PO SCH (09:00)
[2017-02-01] MEDS: METOPROLOL TARTRATE 25 MG TAB PO SCH ×2 (09:14→21:54)
[2017-02-01] MEDS: LOSARTAN 25 MG TAB PO SCH (09:14)
[2017-02-01] MEDS: CEFUROXIME AXETIL 500 MG TAB PO SCH ×2 (09:14→21:54)
[2017-02-01] MEDS: QUEtiapine FUMARATE 25 MG TAB PO SCH ×2 (09:15→12:00)
[2017-02-01] MEDS: APIXABAN 5 MG TABLET PO SCH ×2 (09:15→21:54)
[2017-02-01] MEDS: BENZTROPINE MESYLATE 1 MG TAB PO SCH ×2 (09:16→21:54)
--- NOTE | 2017-02-01 13:00 | RADRPT ---
EXAM DATE/TIME: 02/01/2017 12:29 [facility] COMPARISON: No previous studies available for comparison. INDICATIONS : Dizziness. MEDICAL HISTORY : Diabetes mellitus type 2. Hypertension. SURGICAL HISTORY : Hysterectomy. Cholecystectomy. ENCOUNTER: Initial ACUITY: 1 day PAIN SCORE: 0/10 LOCATION: cranial TECHNIQUE: Multiplanar, multisequence MRI of the brain was performed without contrast. FINDINGS: CEREBRUM: The ventricles are normal for age. No evidence of midline shift, mass lesion, hemorrhage or acute in farction. No extraaxial fluid collections are seen. The pituitary gland and suprasellar cistern are normal in configuration. WHITE MATTER: Scattered foci of bright T2 signal abnormalities are seen in the white matter. POSTERIOR FOSSA: The cerebellum and brainstem are intact. The 4th ventricle is midline. The cerebellopontine angle is unremarkable. The cerebellar tonsils are normal in position. DIFFUSION IMAGING: No focal areas of restricted diffusion are seen. No evidence of acute infarction. EXTRACRANIAL: The visualized portions of the orbits and paranasal sinuses are unremarkable. CONCLUSION: Chronic ischemic small vessel vasculopathy. No acute intracranial abnormality. Chavez Burt MD on February 01, 2017 at 12:57 Board Certified Radiologist. This report was verified electronically.
--- NOTE | 2017-02-01 13:53 | HHI.PYPN ---
Subjective Remarks Patient was seen today for psychiatric reevaluation, patient is calm, cooperative, and pleasantly confused. Patient reports that she feels okay here , patient says that she is at her house. Patient is oriented in person, but completely disoriented in time and place. She denies suicidal and homicidal ideation, she denies visual and auditory hallucinations. No agitation, no aggressive behavior, no violence hostility, behavioral dysregulation has been reported. Patient is compliant with her medications, no significant side effects. MMS was completed today patient scored 16/, also fail drawing clock. Patient has a considerable impairment executive function, abstract thinking, recent and immediate recall, concentration. Brain MRI showed: Chronic ischemic small vessel vasculopathy. No acute intracranial abnormality. She is being followed by neurology. Review of Systems Other No somatic complaints Objective Alert: Yes [place]: Person Mood: Anxious Affect: Labile Memory Intact: Immediate (impaired) Hallucinations: Auditory (voices but nothing specific) Delusions: Yes Delusion Type: Paranoid (vigilant) Suicidal: Ideation (denies) Homicidal: Ideation (denies) Insight/Judgment Poor Vitals/IOs Vital Signs Date Time Temp Pulse Resp B/P (MAP) Pulse Ox O2 Delivery O2 Flow Rate FiO2 02/01/17 06:00 97.3 77 18 120/80 (93) 96 Intake and Output 02/01/17 02/01/17 02/02/17 08:00 16:00 00:00 Intake Total 480 ml Balance 480 ml Assessment & Plan Problem List: (1) Major neurocognitive disorder ICD Codes: F03.90 - Unspecified dementia without behavioral disturbance (2) Major neurocognitive disorder with Lewy bodies, possible ICD Codes: G31.83 - Dementia with Lewy bodies; F02.80 - Dementia in other diseases classified elsewhere without behavioral disturbance Status: Chronic Assessment & Plan: On psychiatric evaluation today patient shows symptomatology of severe dementia. Corroborated by MMS of . Patient has history of very vivid visual hallucinations, fluctuation of consciousness, bradykinesia and tremors, which may her suspicious of having dementia with Lewy bodies. MRI today showed Chronic ischemic small vessel vasculopathy. No acute intracranial abnormality. Neurology recommendations appreciated. Will discontinue benztropine that might worsen cognitive impairment. Continue Seroquel 12.5 mg in the morning 25 mg at bedtime to control behavior and perceptual disturbances. Assessment & Plan Estimated LOS: days Justification for Cont. Inpt. Patient is to continue psychiatric hospitalization for stabilization and safety. Jer Sánchez MD Feb 01, 2017 13:53
--- NOTE | 2017-02-01 16:51 | MG ---
cc: GEE SLATER M.D. Lab No: Date: 02/01/2017 Age: 66 Sex: F Race: An electroencephalogram was obtained on this 66-year-old patient being awake, asleep and mildly confused. The EEG shows a lot of theta and delta rhythms bilaterally. There was very limited alpha activity. There is artifact. Hyperventilation was not performed. Photic stimulation showed some possible background reactivity. INTERPRETATION Abnormal EEG because of bi-hemisphere slowing compatible with a moderately severe diffuse disturbance of cerebral function or bilateral structural abnormalities. No paroxysmal discharges obviously present. Somewhat limited study. Gee Slater MD [facility]/ /2:52 PM /4:44 PM
[2017-02-01 21:50] VITALS: BP 118/69; PULSE 66
[2017-02-02] MEDS: LORazepam 1 MG TAB PO PRN (01:38)
[2017-02-02 06:22] VITALS: BP 119/57; PULSE 57; RESP 18; TEMP 98.7; O2SAT 96
[2017-02-02] MEDS: METOPROLOL TARTRATE 25 MG TAB PO SCH ×2 (08:24→21:00)
[2017-02-02] MEDS: FUROSEMIDE 40 MG TAB PO SCH (09:00)
[2017-02-02] MEDS: QUEtiapine FUMARATE 25 MG TAB PO SCH ×3 (09:00→12:00)
[2017-02-02] MEDS: APIXABAN 5 MG TABLET PO SCH (10:11)
[2017-02-02] MEDS: CEFUROXIME AXETIL 500 MG TAB PO SCH ×2 (10:11→21:00)
[2017-02-02] MEDS: LOSARTAN 25 MG TAB PO SCH (10:11)
[2017-02-02] MEDS: BENZTROPINE MESYLATE 1 MG TAB PO SCH ×2 (10:12→21:00)
[2017-02-02 14:00] VITALS: BP 114/57; PULSE 69; O2SAT 97
[2017-02-02 16:43] VITALS: TEMP 98
--- NOTE | 2017-02-02 17:14 | HHI.PYPN ---
Subjective Remarks Pt seen and discussed with staff. Seroquel held because of sedation. RN states pt has been picking at objects. She is quiet and withdrawn and does not engage in interview. Large ecchymosis on L flank which per nursing has been evolving. Objective Alert: Yes [place]: Person Mood: Calm Affect: Restricted Memory Intact: Immediate, Comment (impaired) Hallucinations: Auditory (appears internally stimulated) Delusions: Yes Delusion Type: Paranoid (vigilant) Suicidal: Ideation (denies) Homicidal: Ideation (denies) Insight/Judgment poor Vitals/IOs Vital Signs Date Time Temp Pulse Resp B/P (MAP) Pulse Ox O2 Delivery O2 Flow Rate FiO2 02/02/17 16:43 98.0 02/02/17 14:00 69 114/57 (76) 97 02/02/17 06:22 18 Intake and Output 02/02/17 02/02/17 02/03/17 08:00 16:00 00:00 Intake Total 120 ml 120 ml Balance 120 ml 120 ml Assessment & Plan Problem List: (1) Major neurocognitive disorder ICD Codes: F03.90 - Unspecified dementia without behavioral disturbance (2) Major neurocognitive disorder with Lewy bodies, possible ICD Codes: G31.83 - Dementia with Lewy bodies; F02.80 - Dementia in other diseases classified elsewhere without behavioral disturbance Status: Chronic Assessment & Plan Continue current tx plan. Medicine consulted and eliquis held. Estimated LOS: days Justification for Cont. Inpt. Chioma Zamora MD Feb 02, 2017 17:14
[2017-02-02 18:00] VITALS: BP 120/60; PULSE 68; RESP 17; TEMP 98.6; O2SAT 99
[2017-02-02 18:02] VITALS: BP 134/77; PULSE 58; RESP 16
[2017-02-02 19:03] LABS: AUTOMATED NEUTROPHIL # 11.8 TH/MM3 (1.8-7.7); BASOPHIL % 0.2 % (0.0-2.0); EOSINOPHIL # 0.1 TH/MM3 (0-0.4); EOSINOPHIL % 0.4 % (0.0-4.0); HEMATOCRIT 32.7 % (35.0-46.0); HEMO FLAGS DIFF FINAL; LYMPH % 7.6 % (9.0-44.0); LYMPHOCYTE # 1.1 TH/MM3 (1.0-4.8); MEAN CELL VOLUME 94.4 FL (80.0-100.0); MEAN CORPUSCULAR HEMOGLOBIN 31.5 PG (27.0-34.0); MEAN CORPUSCULAR HGB CONC 33.3 % (32.0-36.0); MONO % 6.8 % (0.0-8.0); PLATELET COUNT 198 TH/MM3 (150-450); RED BLOOD COUNT 3.46 MIL/MM3 (4.00-5.30); RED CELL DISTRIBUTION WIDTH 14.1 % (11.6-17.2); WHITE BLOOD COUNT 13.9 TH/MM3 (4.0-11.0)
[2017-02-02 19:07] LABS: ANION GAP 7 MEQ/L (5-15); AST (GOT) 10 U/L (15-37); BLOOD UREA NITROGEN 45 MG/DL (7-18); CHLORIDE 103 MEQ/L (98-107); GLOMERULAR FILTRATION RATE 38 ML/MIN (>89); POTASSIUM 3.9 MEQ/L (3.5-5.1); SODIUM (NA) 139 MEQ/L (136-145)
[2017-02-02 19:08] LABS: ALT (GPT) 19 U/L (10-53)
[2017-02-02 19:10] LABS: ALKALINE PHOSPHATASE 77 U/L (45-117)
--- NOTE | 2017-02-02 21:32 | RADRPT ---
EXAM DATE/TIME: 02/02/2017 21:21 [facility] COMPARISON: No previous studies available for comparison. INDICATIONS : Altered mental status. RADIATION DOSE: 37.80 CTDIvol (mGy) MEDICAL HISTORY : Cardiovascular disease. Congestive heart failure. Hypertension. SURGICAL HISTORY : Hysterectomy. ENCOUNTER: Initial ACUITY: 2 days PAIN SCALE: Non-responsive LOCATION: cranial TECHNIQUE: Multiple contiguous axial images were obtained of the head. Using automated exposure control and adj ustment of the mA and/or kV according to patient size, radiation dose was kept as low as reasonably a chievable to obtain optimal diagnostic quality images. DICOM format image data is available electro nically for review and comparison. FINDINGS: CEREBRUM: The ventricles are normal for age. No evidence of midline shift, mass lesion, hemorrhage or acute in farction. No extra-axial fluid collections are seen. POSTERIOR FOSSA: The cerebellum and brainstem are intact. The 4th ventricle is midline. The cerebellopontine angle i s unremarkable. EXTRACRANIAL: The visualized portion of the orbits is intact. SKULL: The calvaria is intact. No evidence of skull fracture. CONCLUSION: Negative Noncontrast CT. Lennox Sung MD on February 02, 2017 at 21:29 Board Certified Radiologist. This report was verified electronically.
--- NOTE | 2017-02-02 21:36 | RADRPT ---
EXAM DATE/TIME: 02/02/2017 21:24 [facility] COMPARISON: No previous studies available for comparison. INDICATIONS : Trauma; fall. RADIATION DOSE: 19.01 CTDIvol (mGy) ; Combined studies - Thorax/Abdomen/Pelvis MEDICAL HISTORY : Cardiovascular disease. Congestive heart failure. Hypertension. SURGICAL HISTORY : Hysterectomy. ENCOUNTER: Initial ACUITY: 2 days PAIN SCALE: Non-responsive LOCATION: chest TECHNIQUE: Volumetric scanning of the chest was performed. Using automated exposure control and adjustment of t he mA and/or kV according to patient size, radiation dose was kept as low as reasonably achievable to obtain optimal diagnostic quality images. DICOM format image data is available electronically for r eview and comparison. Follow-up recommendations for detected pulmonary nodules are based at a minimum on nodule size and pa tient risk factors according to Fleischner Society Guidelines. FINDINGS: LUNGS: There is no consolidation or pneumothorax. No concerning pulmonary nodule is visualized. There is mi ld scarring and or atelectasis in the left lower lobe. There is underlying emphysema. PLEURAE: There is no pleural thickening or pleural effusion. MEDIASTINUM: The heart and great vessels demonstrate no acute abnormality. There is no mediastinal or hilar lymph adenopathy. There are coronary artery calcifications. AXILLAE: Within normal limits. No lymphadenopathy. MUSCULOSKELETAL: Within normal limits for patient age. MISCELLANEOUS: The visualized upper abdominal organs demonstrate no acute abnormality. CONCLUSION: 1. Negative trauma study. 2. Underlying emphysema. 3. Mild scarring or atelectasis in the left lower lobe. Lennox Sung MD on February 02, 2017 at 21:33 Board Certified Radiologist. This report was verified electronically.
--- NOTE | 2017-02-02 21:40 | RADRPT ---
EXAM DATE/TIME: 02/02/2017 21:24 [facility] COMPARISON: No previous studies available for comparison. INDICATIONS : Trauma; fall. Pain and swelling over the left lateral posterior abdomen. ORAL CONTRAST: No oral contrast ingested. RADIATION DOSE: 19.01 CTDIvol (mGy) ; Combined studies - Thorax/Abdomen/Pelvis MEDICAL HISTORY : Cardiovascular disease. Congestive heart failure. Hypertension. SURGICAL HISTORY : Hysterectomy. ENCOUNTER: Initial ACUITY: 2 days PAIN SCALE: Non-responsive LOCATION: abdomen TECHNIQUE: Volumetric scanning of the abdomen and pelvis was performed. Using automated exposure control and ad justment of the mA and/or kV according to patient size, radiation dose was kept as low as reasonably achievable to obtain optimal diagnostic quality images. DICOM format image data is available electro nically for review and comparison. FINDINGS: LOWER LUNGS: The visualized lower lungs are clear. LIVER: Homogeneous density without lesion. There is no dilation of the biliary tree. Status post cholecyste ctomy. SPLEEN: Normal size without lesion. PANCREAS: Within normal limits. KIDNEYS: Normal in size and shape. There is no mass, stone, or hydronephrosis. ADRENAL GLANDS: Within normal limits. VASCULAR: There is no aortic aneurysm. BOWEL/MESENTERY: The stomach, small bowel, and colon demonstrate no acute abnormality. There is no free intraperitone al air or fluid. ABDOMINAL WALL: Within normal limits. RETROPERITONEUM: There is no lymphadenopathy. BLADDER: No wall thickening or mass. REPRODUCTIVE: Within normal limits. INGUINAL: There is no lymphadenopathy or hernia. MUSCULOSKELETAL: There is a large subcutaneous and hematoma along the left posterior lateral lower chest and upper abd omen. This measures up to approximately 10.4 x 4.9 x 8.5 cm in diameter. The adjacent ribs are intact with no evidence of fracture. The other bony structures are intact as well. The spine and pelvis dem onstrate no acute fracture. CONCLUSION: 1. Large subcutaneous hematoma along the left posterior-lateral lower chest and upper abdomen. 2. Status post cholecystectomy. 3. Mild patchy scarring or atelectasis left lung base. 4. No evidence of visceral injury or fracture. Lennox Sung MD on February 02, 2017 at 21:35 Board Certified Radiologist. This report was verified electronically.
--- NOTE | 2017-02-02 22:23 | HHI.PR ---
Subjective Remarks STAT [facility] consult was placed by Dr. Plummer, psychiatry, because nursing is reporting an expansion of a left lower chest and left flank ecchymotic area following a fall on the psychiatric unit on 01/28. Ecchymotic area first noted . The staff nurses are also concerned because the patient is very lethargic and sleepy and difficult to arouse and the nurses think this change seems to accompany the expanding ecchymosis. Her mental status has waxed and waned during her admission. I discussed the case with Dr. Chacon who had spoken with Dr. Plummer via telephone. She recommended Head, Thorax, and abd/pelvis CTs to evaluate both waning mental status and ecchymosis. Head CT was negative, chest CT showed underlying emphysema, mild scarring or atelectasis in the left lower lobe but no traumatic findings, and abdomen/ pelvis CT showed a large subcutaneous hematoma along the left posterior lateral lower chest and upper abdomen. Mild patchy scarring or atelectasis in left lung base also noted on this test. There was no evidence of visceral injury or fracture. The patient is seen on the psychiatric unit. She is indeed hard to awaken. Upon turning her, she awakens enough to express pain in the ecchymotic area with palpation but returns to sleep. According to nursing, her vital signs and stable. She does have a large area of ecchymosis on her left lateral abdomen and lower left chest wall with some mild swelling noted. The area is tender to palpation. Discussed examination findings with Dr. Chacon. The patient is unable to participate in history taking due to lethargy/ drowsiness. Objective Vital Signs Date Time Temp Pulse Resp B/P (MAP) Pulse Ox O2 Delivery O2 Flow Rate FiO2 02/02/17 18:02 58 16 134/77 (96) 02/02/17 18:00 98.6 68 17 120/60 (80) 99 02/02/17 16:43 98.0 02/02/17 14:00 69 114/57 (76) 97 02/02/17 06:22 98.7 57 18 119/57 (77) 96 I/O 02/01/17 02/01/17 02/01/17 02/02/17 02/02/17 02/02/17 07:00 15:00 23:00 07:00 15:00 23:00 Intake Total 480 ml 960 ml 240 ml 0 ml Balance 480 ml 960 ml 240 ml 0 ml Intake Oral 480 ml 960 ml 240 ml 0 ml # Voids 2 . Result Diagram: 02/02/17183702/02/171837 Imaging Last Impressions Head CT 02/02/17 0000 Signed Impressions: Service Date/Time: Thursday, February 02, 2017 21:21 - CONCLUSION: Negative Noncontrast CT. Lennox Sung MD Chest CT 02/02/17 0000 Signed Impressions: Service Date/Time: Thursday, February 02, 2017 21:24 - CONCLUSION: 1. Negative trauma study. 2. Underlying emphysema. 3. Mild scarring or atelectasis in the left lower lobe. Lennox Sung MD Abdomen/Pelvis CT 02/02/17 0000 Signed Impressions: Service Date/Time: Thursday, February 02, 2017 21:24 - CONCLUSION: 1. Large subcutaneous hematoma along the left posterior-lateral lower chest and upper abdomen. 2. Status post cholecystectomy. 3. Mild patchy scarring or atelectasis left lung base. 4. No evidence of visceral injury or fracture. Lennox Sung MD Brain MRI 02/01/17 0000 Signed Impressions: Service Date/Time: Wednesday, February 01, 2017 12:29 - CONCLUSION: Chronic ischemic small vessel vasculopathy. No acute intracranial abnormality. Chavez Burt MD Hip and Pelvis X-Ray 01/28/17 0000 Signed Impressions: Service Date/Time: Saturday, January 28, 2017 17:09 - CONCLUSION: Mild degenerative changes negative for fracture. Moses Real MD FACR Hip X-Ray 01/28/17 0000 Signed Impressions: Service Date/Time: Saturday, January 28, 2017 17:13 - CONCLUSION: Mild degenerative changes, negative for fracture. Moses Real MD FACR Objective Remarks GENERAL: This is a pale, drowsy patient, in no apparent distress. SKIN: large area of ecchymosis on her left lateral abdomen and lower left chest wall with some mild swelling noted that is tender to palpation. HEAD: Atraumatic. Normocephalic. ENT: Nose without bleeding, purulent drainage. NECK: Trachea midline. No JVD. CARDIOVASCULAR: Regular rate and rhythm without murmurs, gallops, or rubs. + 2 dorsalis pedis bilaterally. RESPIRATORY: Clear to auscultation. Breath sounds equal bilaterally. No wheezes , rales, or rhonchi. GASTROINTESTINAL: Abdomen soft, nondistended. No guarding. Normal bowel sounds. MUSCULOSKELETAL: Extremities without clubbing, cyanosis, or edema. NEUROLOGICAL: The patient is very drowsy at the time of my visit. . A/P Problem List: (1) Encephalopathy ICD Code: G93.40 - Encephalopathy, unspecified (2) Subcutaneous hematoma ICD Code: T14.8 - Other injury of unspecified body region Assessment and Plan 66 year-old female with a history of atrial fibrillation, hypertension and bipolar disorder who presented to hospital with psychosis and fell on unit resulting in large subcutaneous hematoma. Encephalopathy - Head CT was negative, brain MRI 02/01 showed chronic ischemic small vessel vasculopathy with no acute intracranial abnormality. - hold all sedating medications - obtain urinalysis as soon as possible - straight cath per previous order - discussed with medical staff assistant - obtain blood cultures - follow results of all cultures - initiate antibiotics if indicated - agree with hold Eliquis Subcutaneous hematoma - abdomen/pelvis CT showed a large subcutaneous hematoma along the left posterior lateral lower chest and upper abdomen. Mild patchy scarring or atelectasis in left lung base also noted on this test. There was no evidence of visceral injury or fracture. - likely nothing to do other than await resolution of the hematoma but will consult general surgery for their evaluation - H&H decreased to 10.9/32.7, will recheck in a.m. and follow results Leukocytosis - may be secondary to hematoma vs infection vs hemoconcentration - WBC 13.9 with neutrophilia - Blood cultures and urinalysis as per above - await results Attending Attestation RN and Margaret Buck Feb 02, 2017 22:23
[2017-02-03 03:23] LABS: BLOOD, URINE TRACE (NEG); COMMENT (UR) CULT NOT INDICATED; CULTURE IF INDICATED CULT NOT INDICATED; GLUCOSE,URINE NEG (NEG); KETONE, URINE NEG (NEG); NITRITE,URINE NEG (NEG); SQUAMOUS EPITHELIAL CELL URINE 19 /hpf (0-5); URINE COLOR YELLOW (YELLW/STRAW)
[2017-02-03] MEDS: QUEtiapine FUMARATE 25 MG TAB PO SCH ×2 (07:48→12:00)
[2017-02-03] MEDS: FUROSEMIDE 40 MG TAB PO SCH (09:00)
[2017-02-03] MEDS: LOSARTAN 25 MG TAB PO SCH (09:00)
[2017-02-03] MEDS: METOPROLOL TARTRATE 25 MG TAB PO SCH ×2 (09:00→21:00)
--- NOTE | 2017-02-03 09:24 | HHI.PR ---
Subjective Remarks Follow up left flank hematoma and fall. Patient seen and examined. Sitting up in chair comfortably. Awake and alert, oriented x 1 to self, unaware of place, year and situation. Denies any new acute events. Tolerating PO intake well, denies any nausea or vomiting. Spoke to Dr. Santiago about surgery consult regarding hematoma and updated about patient status. Will keep NPO for now and US to assess size of hematoma. Objective Vitals Vital Signs Date Time Temp Pulse Resp B/P (MAP) Pulse Ox O2 Delivery O2 Flow Rate FiO2 02/02/17 18:02 58 16 134/77 (96) 02/02/17 18:00 98.6 68 17 120/60 (80) 99 02/02/17 16:43 98.0 02/02/17 14:00 69 114/57 (76) 97 I/O 02/02/17 02/02/17 02/02/17 02/03/17 02/03/17 02/03/17 07:00 15:00 23:00 07:00 15:00 23:00 Intake Total 240 ml 0 ml 0 ml Balance 240 ml 0 ml 0 ml Intake Oral 240 ml 0 ml 0 ml # Voids 0 1 Result Diagram: 02/02/17 1838 02/02/17 1838 Imaging Last Impressions Head CT 02/02/17 0000 Signed Impressions: Service Date/Time: Thursday, February 02, 2017 21:21 - CONCLUSION: Negative Noncontrast CT. Lennox Sung MD Chest CT 02/02/17 0000 Signed Impressions: Service Date/Time: Thursday, February 02, 2017 21:24 - CONCLUSION: 1. Negative trauma study. 2. Underlying emphysema. 3. Mild scarring or atelectasis in the left lower lobe. Lennox Sung MD Abdomen/Pelvis CT 02/02/17 0000 Signed Impressions: Service Date/Time: Thursday, February 02, 2017 21:24 - CONCLUSION: 1. Large subcutaneous hematoma along the left posterior-lateral lower chest and upper abdomen. 2. Status post cholecystectomy. 3. Mild patchy scarring or atelectasis left lung base. 4. No evidence of visceral injury or fracture. Lennox Sung MD Brain MRI 02/01/17 0000 Signed Impressions: Service Date/Time: Wednesday, February 01, 2017 12:29 - CONCLUSION: Chronic ischemic small vessel vasculopathy. No acute intracranial abnormality. Chavez Burt MD Hip and Pelvis X-Ray 01/28/17 0000 Signed Impressions: Service Date/Time: Saturday, January 28, 2017 17:09 - CONCLUSION: Mild degenerative changes negative for fracture. Moses Real MD FACR Hip X-Ray 01/28/17 0000 Signed Impressions: Service Date/Time: Saturday, January 28, 2017 17:13 - CONCLUSION: Mild degenerative changes, negative for fracture. Moses Real MD FACR Objective Remarks GENERAL: Well-nourished, well-developed female patient, sitting up in chair in no apparent distress. Awake and alert, oriented x 1. SKIN: large area of ecchymosis on her left lateral abdomen and lower left chest wall with some mild swelling noted that is tender to palpation. HEAD: Atraumatic. Normocephalic. ENT: Nose without bleeding, purulent drainage. NECK: Trachea midline. No JVD. CARDIOVASCULAR: Regular rate and rhythm without murmurs, gallops, or rubs. + 2 dorsalis pedis bilaterally. RESPIRATORY: Clear to auscultation. Breath sounds equal bilaterally. No wheezes , rales, or rhonchi. GASTROINTESTINAL: Abdomen soft, nondistended. No guarding. Normal bowel sounds. MUSCULOSKELETAL: Extremities without clubbing, cyanosis, or edema. NEUROLOGICAL: Awake and alert. Speech clear. Follows commands. A/P Assessment and Plan 66 year-old female with a history of atrial fibrillation, hypertension and bipolar disorder who presented to hospital with psychosis and fell on unit resulting in large subcutaneous hematoma. Bipolar disorder: Management per psychiatry team. Encephalopathy, resolved. Will suggest continuing psych medications as indicated by psychiatry. Monitor neuro status, update team if any change. Subcutaneous hematoma secondary to fall 01/28/17 - Head CT was negative, brain MRI 02/01 showed chronic ischemic small vessel vasculopathy with no acute intracranial abnormality. - abdomen/pelvis CT reviewed showing a large subcutaneous hematoma along the left posterior lateral lower chest and upper abdomen. Mild patchy scarring or atelectasis in left lung base also noted on this test. There was no evidence of visceral injury or fracture. - Consult was placed to Dr. Santiago over night. Spoke with him personally, suggests to keep patient NPO, border bruise/hematoma and monitor. Continue Eliquis hold. - H&H displayed no change on CBC this am, 10.9 --> 10.7. Leukocytosis suspect secondary to hematoma vs infection vs hemoconcentration - WBC 13.9 --> 12.6. Afebrile. - Blood cultures pending. Follow. UA resulted, no evidence of infection. Atrial fibrillation: Currently in NSR. On Eliquis at home, now on hold due to recent fall and hematoma development. Continue to hold. DVT Prophylaxis: Ambulation. Eliquis on hold. Await surgery recs. Bety Santiago Feb 03, 2017 09:24
[2017-02-03 09:53] VITALS: BP 138/56; PULSE 78
[2017-02-03 10:28] LABS: AUTOMATED NEUTROPHIL # 10.1 TH/MM3 (1.8-7.7); BASOPHIL % 0.3 % (0.0-2.0); EOSINOPHIL # 0.2 TH/MM3 (0-0.4); EOSINOPHIL % 1.7 % (0.0-4.0); HEMATOCRIT 32.2 % (35.0-46.0); HEMO FLAGS DIFF FINAL; LYMPH % 9.5 % (9.0-44.0); LYMPHOCYTE # 1.2 TH/MM3 (1.0-4.8); MEAN CELL VOLUME 94.4 FL (80.0-100.0); MEAN CORPUSCULAR HEMOGLOBIN 31.5 PG (27.0-34.0); MEAN CORPUSCULAR HGB CONC 33.4 % (32.0-36.0); MONO % 8.3 % (0.0-8.0); NEUT % 80.2 % (16.0-70.0); PLATELET COUNT 200 TH/MM3 (150-450); RED BLOOD COUNT 3.41 MIL/MM3 (4.00-5.30); RED CELL DISTRIBUTION WIDTH 14.3 % (11.6-17.2); WHITE BLOOD COUNT 12.6 TH/MM3 (4.0-11.0)
[2017-02-03 10:32] LABS: PROTHROMBIN TIME - PATIENT 11.6 SEC (9.8-11.6)
[2017-02-03 10:47] LABS: BICARBONATE 26.9 MEQ/L (21.0-32.0); POTASSIUM 3.6 MEQ/L (3.5-5.1)
[2017-02-03] MEDS ORDERED: PADIMATE (CHAPSTICK) 4.5 GM TUBE TOPICAL PRN (11:00)
--- NOTE | 2017-02-03 11:05 | HHI.PYPN ---
Subjective Remarks Pt seen and discussed with staff. Pt has been awake and alert this morning. Pt states that she is feeling better and she has been much more engaged with staff and peers. Pt denies discomfort or pain.No behavioral problems on unit. She has been cooperative with care. Decreased intermittent myoclonic jerks today. administrative staff supervisor report that pt seems overly sedated after ativan administration Objective Alert: Yes [place]: Person Mood: Happy Affect: Other (smiling) Memory Intact: Immediate, Comment (impaired) Hallucinations: Other (does not appear internally stimulated) Delusions: Yes Delusion Type: Paranoid (decreased, mild) Suicidal: Ideation (denies) Homicidal: Ideation (denies) Insight/Judgment poor Labs Test 02/02/17 18:38 02/03/17 00:15 02/03/17 09:17 White Blood Count 13.9 TH/MM3 12.6 TH/MM3 Red Blood Count 3.46 MIL/MM3 3.41 MIL/MM3 Hemoglobin 10.9 GM/DL 10.7 GM/DL Hematocrit 32.7 % 32.2 % Mean Corpuscular Volume 94.4 FL 94.4 FL Mean Corpuscular Hemoglobin 31.5 PG 31.5 PG Mean Corpuscular Hemoglobin Concent 33.3 % 33.4 % Red Cell Distribution Width 14.1 % 14.3 % Platelet Count 198 TH/MM3 200 TH/MM3 Mean Platelet Volume 8.4 FL 8.4 FL Neutrophils (%) (Auto) 85.0 % 80.2 % Lymphocytes (%) (Auto) 7.6 % 9.5 % Monocytes (%) (Auto) 6.8 % 8.3 % Eosinophils (%) (Auto) 0.4 % 1.7 % Basophils (%) (Auto) 0.2 % 0.3 % Neutrophils # (Auto) 11.8 TH/MM3 10.1 TH/MM3 Lymphocytes # (Auto) 1.1 TH/MM3 1.2 TH/MM3 Monocytes # (Auto) 1.0 TH/MM3 1.1 TH/MM3 Eosinophils # (Auto) 0.1 TH/MM3 0.2 TH/MM3 Basophils # (Auto) 0.0 TH/MM3 0.0 TH/MM3 CBC Comment DIFF FINAL DIFF FINAL Differential Comment Blood Urea Nitrogen 45 MG/DL 44 MG/DL Creatinine 1.38 MG/DL 1.30 MG/DL Random Glucose 138 MG/DL 133 MG/DL Total Protein 7.0 GM/DL Albumin 3.8 GM/DL Calcium Level 10.1 MG/DL 9.7 MG/DL Alkaline Phosphatase 77 U/L Aspartate Amino Transf (AST/SGOT) 10 U/L Alanine Aminotransferase (ALT/SGPT) 19 U/L Total Bilirubin 1.0 MG/DL Sodium Level 139 MEQ/L 139 MEQ/L Potassium Level 3.9 MEQ/L 3.6 MEQ/L Chloride Level 103 MEQ/L 104 MEQ/L Carbon Dioxide Level 29.0 MEQ/L 26.9 MEQ/L Anion Gap 7 MEQ/L 8 MEQ/L Estimat Glomerular Filtration Rate 38 ML/MIN 41 ML/MIN Urine Color YELLOW Urine Turbidity HAZY Urine pH 5.0 Urine Specific [place] 1.017 Urine Protein NEG mg/dL Urine Glucose (UA) NEG mg/dL Urine Ketones NEG mg/dL Urine Occult Blood TRACE Urine Nitrite NEG Urine Bilirubin NEG Urine Urobilinogen LESS THAN 2.0 MG/DL Urine Leukocyte Esterase SMALL Urine RBC 2 /hpf Urine WBC 1 /hpf Urine Squamous Epithelial Cells 19 /hpf Urine Yeast (Budding) OCC Microscopic Urinalysis Comment CULT NOT INDICATED Prothrombin Time 11.6 SEC Prothromb Time International Ratio 1.0 RATIO Date/Time Source Procedure Growth Status 02/02/17 22:54 Blood Peripheral Aerobic Blood Culture Pending Received 02/02/17 22:54 Blood Peripheral Anaerobic Blood Culture Pending Received Vitals/IOs Vital Signs Date Time Temp Pulse Resp B/P (MAP) Pulse Ox O2 Delivery O2 Flow Rate FiO2 02/03/17 09:53 78 138/56 (83) 02/02/17 18:02 16 02/02/17 18:00 98.6 99 Intake and Output 02/03/17 02/03/17 02/04/17 08:00 16:00 00:00 Intake Total 0 ml Balance 0 ml Assessment & Plan Problem List: (1) Major neurocognitive disorder ICD Codes: F03.90 - Unspecified dementia without behavioral disturbance (2) Major neurocognitive disorder with Lewy bodies, possible ICD Codes: G31.83 - Dementia with Lewy bodies; F02.80 - Dementia in other diseases classified elsewhere without behavioral disturbance Status: Chronic Assessment & Plan Will decrease prn lorazepam dose to reduce risk of sedation. Appreciate Medicine consult. Estimated LOS: days Justification for Cont. Inpt. complicating medical conditions. Chioma Fernandes MD Feb 03, 2017 11:05
--- NOTE | 2017-02-03 14:15 | RADRPT ---
EXAM DATE/TIME: 02/03/2017 11:45 [facility] COMPARISON: CT ABDOMEN & PELVIS W/O CONTRAST, February 02, 2017, 21:24. INDICATIONS : Large left flank hematoma. MEDICAL HISTORY : Hypertension. Bipolar. Cerebrovascular accident. Atrial fibrillation. COPD. SURGICAL HISTORY : Hysterectomy. Cholecystectomy. ENCOUNTER: Initial ACUITY: 3 days PAIN SCORE: 3/10 LOCATION: Left flank AREA EVALUATED: Left flank. FINDINGS: A targeted ultrasound examination was performed in the left flank region. The large hematoma seen on the CT is not as well-visualized. There is a cystic component measuring up to 4.2cm's in greatest peter meter surrounded by a more hyperechoic component which is ill-defined. On the CT hematoma measured ap proximately 10.4 x 4.9 x 8.5 cm. CONCLUSION: Known large hematoma is not as well-visualized by ultrasound. Lennox Sung MD on February 03, 2017 at 14:11 Board Certified Radiologist. This report was verified electronically.
--- NOTE | 2017-02-03 17:48 | MB ---
cc: ARVIN CYR M.D. DATE OF CONSULTATION 02/03/2017 REASON FOR CONSULTATION Left flank hematoma. HISTORY OF PRESENT ILLNESS The patient is a 66-year-old female who apparently fell earlier this week and has been on blood thinners. The patient was noted to have a fairly large hematoma which was noted by CT scan on 02/02/2017. The patient has a fair amount of bruising and an area of some induration. I have been asked to see the patient due to the hematoma. PHYSICAL EXAMINATION GENERAL: Physical exam reveals a female in no acute distress. VITAL SIGNS: BP 138/56, pulse 78, respirations 16. HEENT: Sclerae anicteric. CHEST: Clear to auscultation. CARDIOVASCULAR: Exam reveals regular rate rhythm. ABDOMEN: Soft. There is a large area of ecchymoses from the costal margin down along the abdominal wall including onto the left hip and thigh. It is laterally and posteriorly to the buttocks. There is an area of more indurated tissue between the costal margin and the iliac crest of approximately 8 x 12 cm in size. This is slightly more tender to palpation to the patient. Pulses are present. NEUROLOGIC: The patient is not alert or oriented although she is responsive. LABORATORY FINDINGS Hemoglobin is 10.7 and was 10.9 yesterday 12.3 on 01/24. Coags were within normal limits. Chemistries demonstrate BUN and creatinine elevated to 44 and 1.3. IMAGING Imaging demonstrates the hematoma along the left posterior lower chest and upper abdomen that is 10.4 x 4.9 x 8.5 centimeters in diameter. ASSESSMENT Subcutaneous hematoma without skin breakdown. We will follow this periodically; if she develops skin breakdown she will require operative intervention. I do not believe this will be necessary at this time. MD QUAN Larsen/KK /4:47 PM /5:34 PM
[2017-02-03] MEDS: BENZTROPINE MESYLATE 1 MG TAB PO SCH ×2 (18:06→21:00)
[2017-02-04 07:15] VITALS: BP 127/66; PULSE 93; RESP 16; TEMP 97.4; O2SAT 96
[2017-02-04] MEDS: BENZTROPINE MESYLATE 1 MG TAB PO SCH ×2 (08:59→21:00)
[2017-02-04] MEDS: LOSARTAN 25 MG TAB PO SCH (08:59)
[2017-02-04] MEDS: METOPROLOL TARTRATE 25 MG TAB PO SCH ×2 (08:59→21:00)
[2017-02-04] MEDS ORDERED: FUROSEMIDE 20 MG TAB PO SCH (09:00)
--- NOTE | 2017-02-04 10:23 | HHI.PYPN ---
Subjective Remarks Patient was seen today for psychiatric reevaluation, patient was found sitting the recreational area of the unit, calm, cooperative, less severely demented, with frequent use of confabulations alternated with episodes of lucidity. Patient reports that she feels okay, reports good mood, she denies suicidal and homicidal ideation, she denies visual and auditory hallucinations. Episodes of agitation or aggressive behavior or disorganization were described during the week [facility]. She was seen by surgery due to recent fall, recommendations were appreciation. During the week and Seroquel was hold due to oversedation. Review of Systems Other No somatic complaints Objective Alert: Yes [place]: Person Mood: Happy Affect: Other (smiling) Memory Intact: Immediate, Comment (impaired) Hallucinations: Other (does not appear internally stimulated) Delusions: Yes Delusion Type: Paranoid (decreased, mild) Suicidal: Ideation (denies) Homicidal: Ideation (denies) Insight/Judgment Poor Labs Date/Time Source Procedure Growth Status 02/02/17 22:54 Blood Peripheral Aerobic Blood Culture - Preliminary NO GROWTH IN 1 DAY Resulted 02/02/17 22:54 Blood Peripheral Anaerobic Blood Culture - Preliminary NO GROWTH IN 1 DAY Resulted Vitals/IOs Vital Signs Date Time Temp Pulse Resp B/P (MAP) Pulse Ox O2 Delivery O2 Flow Rate FiO2 02/04/17 07:15 97.4 93 16 127/66 (86) 96 Intake and Output 02/04/17 02/04/17 02/05/17 08:00 16:00 00:00 Intake Total 0 ml Balance 0 ml Assessment & Plan Problem List: (1) Major neurocognitive disorder ICD Codes: F03.90 - Unspecified dementia without behavioral disturbance (2) Major neurocognitive disorder with Lewy bodies, possible ICD Codes: G31.83 - Dementia with Lewy bodies; F02.80 - Dementia in other diseases classified elsewhere without behavioral disturbance Status: Chronic Assessment & Plan: Will reinitiate Seroquel 25 mg twice a day for visual hallucinations and behavioral dysregulation. Surgical consult reviewed and appreciated. Assessment & Plan Estimated LOS: days Justification for Cont. Inpt. Patient has an increased risk to decompensate at a lower level of care. Jer Sánchez MD Feb 04, 2017 10:23
[2017-02-04 11:03] LABS: AUTOMATED NEUTROPHIL # 8.2 TH/MM3 (1.8-7.7); BASOPHIL % 0.4 % (0.0-2.0); EOSINOPHIL # 0.1 TH/MM3 (0-0.4); EOSINOPHIL % 1.3 % (0.0-4.0); HEMATOCRIT 31.4 % (35.0-46.0); HEMO FLAGS DIFF FINAL; LYMPH % 10.1 % (9.0-44.0); MEAN CELL VOLUME 94.8 FL (80.0-100.0); MEAN CORPUSCULAR HEMOGLOBIN 32.1 PG (27.0-34.0); MEAN CORPUSCULAR HGB CONC 33.8 % (32.0-36.0); MONO % 8.1 % (0.0-8.0); NEUT % 80.1 % (16.0-70.0); PLATELET COUNT 201 TH/MM3 (150-450); RED BLOOD COUNT 3.31 MIL/MM3 (4.00-5.30); RED CELL DISTRIBUTION WIDTH 13.9 % (11.6-17.2); WHITE BLOOD COUNT 10.2 TH/MM3 (4.0-11.0)
--- NOTE | 2017-02-04 11:13 | HHI.PR ---
Subjective Remarks Follow up on patient with large hematoma s/p fall. Patient seen and examined. Patient is pleasantly confused. Patient states she has tenderness over the hematoma. Otherwise she denies any acute medical complaints. She is asking if I can drop her off at her house. She denies any fever or chills. She denies any chest pain or dyspnea. She denies any N/V or abdominal pain. Patient evaluated by GS - no surgical intervention at this time. Objective Vitals Vital Signs Date Time Temp Pulse Resp B/P (MAP) Pulse Ox O2 Delivery O2 Flow Rate FiO2 02/04/17 07:15 97.4 93 16 127/66 (86) 96 I/O 02/03/17 02/03/17 02/03/17 02/04/17 02/04/17 02/04/17 07:00 15:00 23:00 07:00 15:00 23:00 Intake Total 0 ml 120 ml 240 ml 0 ml Balance 0 ml 120 ml 240 ml 0 ml Intake Oral 0 ml 120 ml 240 ml 0 ml # Voids 1 1 1 Result Diagram: 02/03/1791602/03/17916 Imaging Last Impressions Soft Tissue Ultrasound 02/03/17 0000 Signed Impressions: Service Date/Time: Friday, February 03, 2017 11:45 - CONCLUSION: Known large hematoma is not as well-visualized by ultrasound. Lennox Sung MD Head CT 02/02/17 0000 Signed Impressions: Service Date/Time: Thursday, February 02, 2017 21:21 - CONCLUSION: Negative Noncontrast CT. Lennox Sung MD Chest CT 02/02/17 0000 Signed Impressions: Service Date/Time: Thursday, February 02, 2017 21:24 - CONCLUSION: 1. Negative trauma study. 2. Underlying emphysema. 3. Mild scarring or atelectasis in the left lower lobe. Lennox Sung MD Abdomen/Pelvis CT 02/02/17 0000 Signed Impressions: Service Date/Time: Thursday, February 02, 2017 21:24 - CONCLUSION: 1. Large subcutaneous hematoma along the left posterior-lateral lower chest and upper abdomen. 2. Status post cholecystectomy. 3. Mild patchy scarring or atelectasis left lung base. 4. No evidence of visceral injury or fracture. Lennox Sung MD Brain MRI 02/01/17 0000 Signed Impressions: Service Date/Time: Wednesday, February 01, 2017 12:29 - CONCLUSION: Chronic ischemic small vessel vasculopathy. No acute intracranial abnormality. Chavez Burt MD Hip and Pelvis X-Ray 01/28/17 0000 Signed Impressions: Service Date/Time: Saturday, January 28, 2017 17:09 - CONCLUSION: Mild degenerative changes negative for fracture. Moses Real MD FACR Hip X-Ray 01/28/17 0000 Signed Impressions: Service Date/Time: Saturday, January 28, 2017 17:13 - CONCLUSION: Mild degenerative changes, negative for fracture. Moses Real MD FACR Objective Remarks GENERAL: Well-nourished, well-developed female patient, INAD. Awake and alert, oriented x 1. Sitting up in chair in day room. SKIN: (+)Large area of ecchymosis on her left lateral abdomen and lower left chest wall with some mild swelling noted that is tender to palpation. Hematoma appears confined to pen borders with no e/o enlargement. HEAD: Atraumatic. Normocephalic. ENT: EOMI. Nose without bleeding, purulent drainage. MMM. NECK: Trachea midline. No JVD. CARDIOVASCULAR: Regular rate and rhythm without murmurs, gallops, or rubs. RESPIRATORY: Clear to auscultation. Breath sounds equal bilaterally. No wheezes , rales, or rhonchi. GASTROINTESTINAL: Abdomen soft, nondistended. No guarding. Normal bowel sounds. MUSCULOSKELETAL: Extremities without clubbing, cyanosis, or edema. NEUROLOGICAL: Awake and alert. Able to move all extremities. Speech clear. Follows commands. PSYCHIATRIC: Calm and cooperative. Pleasantly confused. Medications and IVs Current Medications Medications (Trade) Dose Ordered Sig/Dc Route Start Time Stop Time Status Last Admin (Eliquis) 5 mg BID PO 01/25/17 09:00 Future Hold 02/02/17 10:11 (Cogentin) 0.5 mg BID PO 01/25/17 09:00 02/03/17 18:06 (Cozaar) 25 mg DAILY PO 01/25/17 09:00 02/04/17 08:59 (Lopressor) 25 mg BID PO 01/25/17 09:00 02/04/17 08:59 (Tylenol) 650 mg Q4H PRN PO 01/25/17 21:30 01/29/17 01:35 (Milk Of Magnesia Liq) 30 ml DAILY PRN PO 01/25/17 21:30 (Mag-Al Plus Susp Liq) 30 ml Q6H PRN PO 01/25/17 21:30 (Pill Splitter) 1 ea UNSCH PRN OTHER 01/30/17 14:30 (Lasix) 20 mg DAILY PO 02/04/17 09:00 02/04/17 08:59 (Chapstick) 1 applic UNSCH PRN TOPICAL 02/03/17 11:00 02/03/17 18:12 (Ativan) 0.5 mg Q12H PRN PO 02/03/17 11:15 (SEROquel) 25 mg BID@,12 PO 02/04/17 12:00 A/P Assessment and Plan 66 year-old female with a history of atrial fibrillation, hypertension and bipolar disorder who presented to hospital with psychosis and fell on unit resulting in large subcutaneous hematoma. Bipolar disorder: Management per psychiatry team. Encephalopathy, resolved. Will suggest continuing psych medications as indicated by psychiatry. Monitor neuro status, update team if any change. Subcutaneous hematoma secondary to fall 01/28/17 - Head CT was negative, brain MRI 02/01 showed chronic ischemic small vessel vasculopathy with no acute intracranial abnormality. - abdomen/pelvis CT reviewed showing a large subcutaneous hematoma along the left posterior lateral lower chest and upper abdomen. Mild patchy scarring or atelectasis in left lung base also noted on this test. There was no evidence of visceral injury or fracture. - Evaluated by Dr. Santiago, appreciate recommendations. Continue to hold Eliquis. Monitor area of ecchymosis/hematoma. No surgical intervention at this time, monitor for skin breakdown which would require operative intervention. - Continue to monitor H&H. Previously stable. Today's labs pending. - PT eval/tx - Monitor BMP, check CPK Leukocytosis suspect secondary to hematoma vs infection vs hemoconcentration - white count trending down - Blood cultures show no growth x 1 day. Follow. UA resulted, no evidence of infection. Atrial fibrillation: - Currently in NSR. On Eliquis at home, now on hold due to recent fall and hematoma development. Continue to hold. - Continue metoprolol HTN - Controlled - Continue patient on Cozaar and Lopressor - monitor BP ?JOELLEN on CKD Elevated BUN - Unknown baseline - encourage fluids - hold Lasix - avoid nephrotoxic agents - obtain Renal US - monitor BMP Hypokalemia - replete - check mag level - am labs to monitor response DVT Prophylaxis: Ambulation. Eliquis on hold. Discussed with patient and Ana Rosa Kelly Feb 04, 2017 11:13
[2017-02-04] MEDS: QUEtiapine FUMARATE 25 MG TAB PO SCH (11:27)
[2017-02-04 11:33] LABS: BICARBONATE 28.8 MEQ/L (21.0-32.0); POTASSIUM 3.4 MEQ/L (3.5-5.1)
[2017-02-04] MEDS ORDERED: POTASSIUM CHLORIDE 10 MEQ CONTROLLED RELEASE TAB PO ONE (12:15)
[2017-02-04] MEDS: LORazepam 0.5 MG TAB PO PRN ×2 (12:36→21:00)
[2017-02-04 14:02] LABS: CREATINE KINASE 298 U/L (26-192)
[2017-02-04 14:15] LABS: CKMB 1.5 NG/ML (0.5-3.6)
--- NOTE | 2017-02-04 14:23 | RADRPT ---
EXAM DATE/TIME: 02/04/2017 13:30 [facility] COMPARISON: ULTRASOUND SOFT TISSUE, February 03, 2017, 11:45. INDICATIONS : Increased BUN and Creatinine. MEDICAL HISTORY : Hypertension. Bipolar. Cerebrovascular accident. Atrial fibrillation. COPD. SURGICAL HISTORY : Hysterectomy. Cholecystectomy. ENCOUNTER: Initial ACUITY: 1 day PAIN SCORE: 0/10 LOCATION: Bilateral flank MEASUREMENTS: RIGHT KIDNEY: 9.2 x 4.4 x 5.1 cm LEFT KIDNEY: 10.1 x 4.5 x 5.3 cm FINDINGS: RIGHT KIDNEY: Renal cortex is normal in thickness and echotexture. No hydronephrosis, stone, or mass. LEFT KIDNEY: Renal cortex is normal in thickness and echotexture. No hydronephrosis, stone, or mass. BLADDER: Within normal limits given the degree of distension. CONCLUSION: 1. Normal examination. Hair Real MD on February 04, 2017 at 14:21 Board Certified Radiologist. This report was verified electronically.
[2017-02-04 14:26] LABS: HEMOGLOBIN A1a 0.9 %; HEMOGLOBIN A1b 1.6 %; HEMOGLOBIN LA1C 2.2 %; HEMOGLOBIN P3 5.1 %
[2017-02-04 17:23] VITALS: BP 116/70; PULSE 65; RESP 17; TEMP 97.6
[2017-02-05 06:00] VITALS: BP 165/72; PULSE 55; RESP 19; TEMP 97.5; O2SAT 95
[2017-02-05 08:11] LABS: AUTOMATED NEUTROPHIL # 7.4 TH/MM3 (1.8-7.7); BASOPHIL % 0.5 % (0.0-2.0); EOSINOPHIL # 0.4 TH/MM3 (0-0.4); EOSINOPHIL % 3.6 % (0.0-4.0); HEMATOCRIT 31.2 % (35.0-46.0); HEMO FLAGS DIFF FINAL; LYMPH % 16.1 % (9.0-44.0); LYMPHOCYTE # 1.6 TH/MM3 (1.0-4.8); MEAN CELL VOLUME 95.6 FL (80.0-100.0); MEAN CORPUSCULAR HEMOGLOBIN 31.6 PG (27.0-34.0); MONO % 7.9 % (0.0-8.0); NEUT % 71.9 % (16.0-70.0); PLATELET COUNT 211 TH/MM3 (150-450); RED BLOOD COUNT 3.26 MIL/MM3 (4.00-5.30); RED CELL DISTRIBUTION WIDTH 14.3 % (11.6-17.2); WHITE BLOOD COUNT 10.2 TH/MM3 (4.0-11.0)
[2017-02-05 08:35] LABS: BICARBONATE 31.9 MEQ/L (21.0-32.0); POTASSIUM 3.6 MEQ/L (3.5-5.1)
[2017-02-05] MEDS: QUEtiapine FUMARATE 25 MG TAB PO SCH ×2 (09:00→11:53)
[2017-02-05] MEDS: LOSARTAN 25 MG TAB PO SCH (09:09)
[2017-02-05] MEDS: BENZTROPINE MESYLATE 1 MG TAB PO SCH ×2 (09:09→21:22)
[2017-02-05] MEDS: METOPROLOL TARTRATE 25 MG TAB PO SCH ×2 (09:09→21:22)
--- NOTE | 2017-02-05 09:13 | HHI.PR ---
Subjective Remarks Follow up on patient with large hematoma s/p fall. Patient seen and examined. She is sitting up in chair in day room comfortably, in no apparent distress. Still pleasantly confused. Denies any pain or acute events overnight. Eating well. Denies any nausea, vomiting, abdominal pain or diarrhea. Patient does complain of tenderness of left flank due to hematoma. Improving overall. Afebrile. Objective Vitals Vital Signs Date Time Temp Pulse Resp B/P (MAP) Pulse Ox O2 Delivery O2 Flow Rate FiO2 02/05/17 06:00 97.5 55 19 165/72 (103) 95 02/04/17 17:23 97.6 65 17 116/70 (85) I/O 02/04/17 02/04/17 02/04/17 02/05/17 02/05/17 02/05/17 07:00 15:00 23:00 07:00 15:00 23:00 Intake Total 120 ml 600 ml Balance 120 ml 600 ml Intake Oral 120 ml 600 ml # Voids 1 2 2 # Bowel Movements 1 Result Diagram: 02/05/17 0700 02/05/17 0700 Imaging Last Impressions Renal Ultrasound 02/04/17 0000 Signed Impressions: Service Date/Time: Saturday, February 04, 2017 13:30 - CONCLUSION: 1. Normal examination. Hair Real MD Soft Tissue Ultrasound 02/03/17 0000 Signed Impressions: Service Date/Time: Friday, February 03, 2017 11:45 - CONCLUSION: Known large hematoma is not as well-visualized by ultrasound. Lennox Sung MD Head CT 02/02/17 0000 Signed Impressions: Service Date/Time: Thursday, February 02, 2017 21:21 - CONCLUSION: Negative Noncontrast CT. Lennox Sung MD Chest CT 02/02/17 0000 Signed Impressions: Service Date/Time: Thursday, February 02, 2017 21:24 - CONCLUSION: 1. Negative trauma study. 2. Underlying emphysema. 3. Mild scarring or atelectasis in the left lower lobe. Lennox Sung MD Abdomen/Pelvis CT 02/02/17 0000 Signed Impressions: Service Date/Time: Thursday, February 02, 2017 21:24 - CONCLUSION: 1. Large subcutaneous hematoma along the left posterior-lateral lower chest and upper abdomen. 2. Status post cholecystectomy. 3. Mild patchy scarring or atelectasis left lung base. 4. No evidence of visceral injury or fracture. Lennox Sung MD Brain MRI 02/01/17 0000 Signed Impressions: Service Date/Time: Wednesday, February 01, 2017 12:29 - CONCLUSION: Chronic ischemic small vessel vasculopathy. No acute intracranial abnormality. Chavez Burt MD Hip and Pelvis X-Ray 01/28/17 0000 Signed Impressions: Service Date/Time: Saturday, January 28, 2017 17:09 - CONCLUSION: Mild degenerative changes negative for fracture. Moses Real MD FACR Hip X-Ray 01/28/17 0000 Signed Impressions: Service Date/Time: Saturday, January 28, 2017 17:13 - CONCLUSION: Mild degenerative changes, negative for fracture. Moses Real MD FACR Objective Remarks GENERAL: Well-nourished, well-developed female patient, sitting up in chair in no apparent distress. Awake and alert, oriented x 1. SKIN: large area of ecchymosis on her left lateral abdomen and lower left chest wall, mild tenderness to palpation. Bruise improving. HEAD: Atraumatic. Normocephalic. ENT: Nose without bleeding, purulent drainage. NECK: Trachea midline. No JVD. CARDIOVASCULAR: Regular rate and rhythm without murmurs, gallops, or rubs. + 2 dorsalis pedis bilaterally. RESPIRATORY: Clear to auscultation. Breath sounds equal bilaterally. No wheezes , rales, or rhonchi. GASTROINTESTINAL: Abdomen soft, nondistended. No guarding. Normal bowel sounds. MUSCULOSKELETAL: Extremities without clubbing, cyanosis, or edema. NEUROLOGICAL: Awake and alert. Speech clear. Follows commands. A/P Assessment and Plan 66 year-old female with a history of atrial fibrillation, hypertension and bipolar disorder who presented to hospital with psychosis and fell on unit resulting in large subcutaneous hematoma. Bipolar disorder: Management per psychiatry team. Encephalopathy, resolved. Will suggest continuing psych medications as indicated by psychiatry. Monitor neuro status, update team if any change. Subcutaneous hematoma secondary to fall 01/28/17 - Head CT was negative, brain MRI 02/01 showed chronic ischemic small vessel vasculopathy with no acute intracranial abnormality. - abdomen/pelvis CT reviewed showing a large subcutaneous hematoma along the left posterior lateral lower chest and upper abdomen. Mild patchy scarring or atelectasis in left lung base also noted on this test. There was no evidence of visceral injury or fracture. - Evaluated by Dr. Santiago, appreciate recommendations. Continue to hold Eliquis. Monitor area of ecchymosis/hematoma. No surgical intervention at this time, monitor for skin breakdown which would require operative intervention. - Continue to monitor H&H. Stable. - PT eval/tx - Monitor BMP. CPK mildly elevated, encourage PO intake. Leukocytosis suspect secondary to hematoma vs infection vs hemoconcentration - white count trending down - Blood cultures show no growth x 1 day. Follow. UA resulted, no evidence of infection. Atrial fibrillation: Currently in NSR. On Eliquis at home, now on hold due to recent fall and hematoma development. Continue to hold. Continue metoprolol. Hypertension - Controlled - Continue patient on Cozaar and Lopressor - monitor BP ?JOELLEN on CKD Elevated BUN - Unknown baseline - encourage fluids - hold Lasix - avoid nephrotoxic agents - Renal US reviewed showing a normal examination. - continue to monitor BMP Hypokalemia: status post repletion, improved. Hypothyroidism: TSH 76. Free t3 1.07 and free t4 0.60. Patient is not aware of thyroid history, will start on Levothyroxine 25 mcg PO daily. Follow. DVT Prophylaxis: Ambulation. Eliquis on hold. Await surgery recs. Discussed with patient and Bety Dougherty Feb 05, 2017 09:12
[2017-02-05 09:53] LABS: FREE T3 1.07 PG/ML (2.18-3.98); FREE T4 0.6 NG/DL (0.76-1.46)
[2017-02-05] MEDS ORDERED: LEVOTHYROXINE SODIUM 50 MCG TAB PO SCH (11:30)
--- NOTE | 2017-02-05 13:34 | HHI.PR ---
Subjective Subjective Notes In common area Brought back to room for exam Objective Vitals/I&O Vital Signs Date Time Temp Pulse Resp B/P (MAP) Pulse Ox O2 Delivery O2 Flow Rate FiO2 02/05/17 06:00 97.5 55 19 165/72 (103) 95 Labs Laboratory Tests Test 02/05/17 07:00 White Blood Count 10.2 Red Blood Count 3.26 Hemoglobin 10.3 Hematocrit 31.2 Mean Corpuscular Volume 95.6 Mean Corpuscular Hemoglobin 31.6 Mean Corpuscular Hemoglobin Concent 33.0 Red Cell Distribution Width 14.3 Platelet Count 211 Mean Platelet Volume 7.9 Neutrophils (%) (Auto) 71.9 Lymphocytes (%) (Auto) 16.1 Monocytes (%) (Auto) 7.9 Eosinophils (%) (Auto) 3.6 Basophils (%) (Auto) 0.5 Neutrophils # (Auto) 7.4 Lymphocytes # (Auto) 1.6 Monocytes # (Auto) 0.8 Eosinophils # (Auto) 0.4 Basophils # (Auto) 0.0 CBC Comment DIFF FINAL Differential Comment Blood Urea Nitrogen 29 Creatinine 1.15 Random Glucose 117 Calcium Level 9.6 Sodium Level 144 Potassium Level 3.6 Chloride Level 106 Carbon Dioxide Level 31.9 Anion Gap 6 Estimat Glomerular Filtration Rate 47 Free Thyroxine 0.60 Free Triiodothyronine (T3) pg/dL 1.07 Date/Time Source Procedure Growth Status 02/02/17 22:54 Blood Peripheral Aerobic Blood Culture - Preliminary NO GROWTH IN 3 DAYS Resulted 02/02/17 22:54 Blood Peripheral Anaerobic Blood Culture - Preliminary NO GROWTH IN 3 DAYS Resulted Cardiovascular: Regular Lungs: Clear Abdomen: Non-distended, Non-tender Extremities: No edema Narrative Exam Large LEFT flank hematoma---- skin intact; tender; hematoma does not extend to prior made border A/P Assessment and Plan 66 year old female s/p fall; on chronic anticoagulation; with large LEFT flank hematoma -Continue to hold Eliquis -Skin intact -No surgical plans at this time -Will reassess Attending Note - Dr. Santiago Hematoma stable Continue nonoperative management The exam, history, and the medical decision-making described in the above note were completed with the assistance of the mid-level provider. I reviewed and agree with the findings presented. I attest that I had a [id number] encounter with the patient on the same day, and personally performed and documented my assessment and findings in the medical record. Jazmyn Jennings Feb 05, 2017 13:34 Lennox Santiago MD Feb 05, 2017 19:44
--- NOTE | 2017-02-05 16:18 | HHI.PYPN ---
Subjective Remarks Patient is seen today for psychiatric evaluation, patient initially very sedated , unable to participate in the evaluation. But seeing about 2 hours later and patient was fully awake, calm, cooperative and very pleasant. Patient says that she is happy to be year, and she reports good mood, however, patient is disoriented in time and place, uses frequent confabulations. Denies suicidal and homicidal ideation, denies visual and auditory hallucinations. She is compliant with medications, no significant side effects reported Review of Systems Other No somatic complaints Objective Alert: Yes [place]: Person Mood: Happy Affect: Other (smiling) Memory Intact: Immediate, Comment (impaired) Hallucinations: Other (does not appear internally stimulated) Delusions: Yes Delusion Type: Paranoid (decreased, mild) Suicidal: Ideation (denies) Homicidal: Ideation (denies) Insight/Judgment Poor Labs Test 02/05/17 07:00 White Blood Count 10.2 TH/MM3 Red Blood Count 3.26 MIL/MM3 Hemoglobin 10.3 GM/DL Hematocrit 31.2 % Mean Corpuscular Volume 95.6 FL Mean Corpuscular Hemoglobin 31.6 PG Mean Corpuscular Hemoglobin Concent 33.0 % Red Cell Distribution Width 14.3 % Platelet Count 211 TH/MM3 Mean Platelet Volume 7.9 FL Neutrophils (%) (Auto) 71.9 % Lymphocytes (%) (Auto) 16.1 % Monocytes (%) (Auto) 7.9 % Eosinophils (%) (Auto) 3.6 % Basophils (%) (Auto) 0.5 % Neutrophils # (Auto) 7.4 TH/MM3 Lymphocytes # (Auto) 1.6 TH/MM3 Monocytes # (Auto) 0.8 TH/MM3 Eosinophils # (Auto) 0.4 TH/MM3 Basophils # (Auto) 0.0 TH/MM3 CBC Comment DIFF FINAL Differential Comment Blood Urea Nitrogen 29 MG/DL Creatinine 1.15 MG/DL Random Glucose 117 MG/DL Calcium Level 9.6 MG/DL Sodium Level 144 MEQ/L Potassium Level 3.6 MEQ/L Chloride Level 106 MEQ/L Carbon Dioxide Level 31.9 MEQ/L Anion Gap 6 MEQ/L Estimat Glomerular Filtration Rate 47 ML/MIN Free Thyroxine 0.60 NG/DL Free Triiodothyronine (T3) pg/dL 1.07 PG/ML Date/Time Source Procedure Growth Status 02/02/17 22:54 Blood Peripheral Aerobic Blood Culture - Preliminary NO GROWTH IN 3 DAYS Resulted 02/02/17 22:54 Blood Peripheral Anaerobic Blood Culture - Preliminary NO GROWTH IN 3 DAYS Resulted Vitals/IOs Vital Signs Date Time Temp Pulse Resp B/P (MAP) Pulse Ox O2 Delivery O2 Flow Rate FiO2 02/05/17 06:00 97.5 55 19 165/72 (103) 95 Intake and Output 02/05/17 02/05/17 02/06/17 08:00 16:00 00:00 Intake Total 240 ml Balance 240 ml Assessment & Plan Problem List: (1) Major neurocognitive disorder ICD Codes: F03.90 - Unspecified dementia without behavioral disturbance (2) Major neurocognitive disorder with Lewy bodies, possible ICD Codes: G31.83 - Dementia with Lewy bodies; F02.80 - Dementia in other diseases classified elsewhere without behavioral disturbance Status: Chronic Assessment & Plan: We will discontinue Ativan when necessary to avoid oversedation. Assessment & Plan Estimated LOS: days Justification for Cont. Inpt. Patient has an increased chance to decompensate at a lower level of care. Jer Sánchez MD Feb 05, 2017 16:18
[2017-02-06] VITALS: BP 120/62; PULSE 58; RESP 16; TEMP 98; O2SAT 94
[2017-02-06] MEDS: LEVOTHYROXINE SODIUM 25 MCG TAB PO SCH (05:44)
[2017-02-06] MEDS: QUEtiapine FUMARATE 25 MG TAB PO SCH ×2 (09:00→12:00)
[2017-02-06] MEDS: ACETAMINOPHEN 325 MG TAB PO PRN (09:33)
[2017-02-06] MEDS: METOPROLOL TARTRATE 25 MG TAB PO SCH ×2 (09:33→20:59)
[2017-02-06] MEDS: LOSARTAN 25 MG TAB PO SCH (09:34)
[2017-02-06] MEDS: BENZTROPINE MESYLATE 1 MG TAB PO SCH (09:34)
[2017-02-06 12:51] LABS: BICARBONATE 30.6 MEQ/L (21.0-32.0); POTASSIUM 3.7 MEQ/L (3.5-5.1)
--- NOTE | 2017-02-06 15:35 | HHI.PR ---
Subjective Remarks Follow up hematoma. Patient found to be lethargic, difficult to arouse. When she does wake up, she denies pain. She appears confused. Objective Vitals Vital Signs Date Time Temp Pulse Resp B/P (MAP) Pulse Ox O2 Delivery O2 Flow Rate FiO2 02/06/17 00:00 98.0 58 16 120/62 (81) 94 I/O 02/05/17 02/05/17 02/05/17 02/06/17 02/06/17 02/06/17 07:00 15:00 23:00 07:00 15:00 23:00 Intake Total 240 ml 360 ml 0 ml 240 ml Balance 240 ml 360 ml 0 ml 240 ml Intake Oral 240 ml 360 ml 0 ml 240 ml # Voids 2 2 2 Result Diagram: 02/05/17 0700 02/06/17 1153 Imaging Last Impressions Renal Ultrasound 02/04/17 0000 Signed Impressions: Service Date/Time: Saturday, February 04, 2017 13:30 - CONCLUSION: 1. Normal examination. Hair Real MD Soft Tissue Ultrasound 02/03/17 0000 Signed Impressions: Service Date/Time: Friday, February 03, 2017 11:45 - CONCLUSION: Known large hematoma is not as well-visualized by ultrasound. Lennox Sung MD Head CT 02/02/17 0000 Signed Impressions: Service Date/Time: Thursday, February 02, 2017 21:21 - CONCLUSION: Negative Noncontrast CT. Lennox Sung MD Chest CT 02/02/17 0000 Signed Impressions: Service Date/Time: Thursday, February 02, 2017 21:24 - CONCLUSION: 1. Negative trauma study. 2. Underlying emphysema. 3. Mild scarring or atelectasis in the left lower lobe. Lennox Sung MD Abdomen/Pelvis CT 02/02/17 0000 Signed Impressions: Service Date/Time: Thursday, February 02, 2017 21:24 - CONCLUSION: 1. Large subcutaneous hematoma along the left posterior-lateral lower chest and upper abdomen. 2. Status post cholecystectomy. 3. Mild patchy scarring or atelectasis left lung base. 4. No evidence of visceral injury or fracture. Lennox Sung MD Brain MRI 02/01/17 0000 Signed Impressions: Service Date/Time: Wednesday, February 01, 2017 12:29 - CONCLUSION: Chronic ischemic small vessel vasculopathy. No acute intracranial abnormality. Chavez Burt MD Hip and Pelvis X-Ray 01/28/17 0000 Signed Impressions: Service Date/Time: Saturday, January 28, 2017 17:09 - CONCLUSION: Mild degenerative changes negative for fracture. Moses Real MD FACR Hip X-Ray 01/28/17 0000 Signed Impressions: Service Date/Time: Saturday, January 28, 2017 17:13 - CONCLUSION: Mild degenerative changes, negative for fracture. Moses Real MD FACR Objective Remarks General: No acute distress. Heart: Regular rate and rhythm. No murmur. Lungs: Clear to auscultation bilaterally. No wheezes, rales, or rhonchi. Breathing is nonlabored. Abdomen: Soft, nontender, nondistended. Extremities: No lower extremity edema. Psych: Patient was difficult to arouse upon arrival of [facility] to the floor, however on my exam she is more alert. She remains confused. Skin: Large area of ecchymosis overlying left flank. Procedures None Urinary Catheter: No Vascular Central Line Catheter: No A/P Problem List: (1) Subcutaneous hematoma ICD Code: T14.8 - Other injury of unspecified body region (2) Encephalopathy ICD Code: G93.40 - Encephalopathy, unspecified Assessment and Plan 1. Bipolar disorder: Management per psychiatry. 2. Encephalopathy, lethargy: Patient received one dose of Seroquel 25 mg today. She was quite somnolent and difficult to arouse. Symptoms have improved somewhat. Dose of Seroquel held. Will transfer to medical/psychiatric unit. 3. Left flank hematoma: Secondary to fall 01/28/17. Appreciate general surgery recommendations. Eliquis on hold. No surgical intervention at this time. Monitor for signs of skin breakdown. 4. Leukocytosis: Likely secondary to stress reaction versus infection. Improving. Blood cultures are negative so far. UA is negative. No other signs of infection at this time. 5. Atrial fibrillation: Currently in normal sinus rhythm. Eliquis on hold secondary to hematoma. Continue metoprolol. 6. Hypertension: Continue Cozaar, Lopressor. 7. Acute kidney injury superimposed on chronic kidney disease stage III: Encourage oral fluid intake. Monitor labs. Creatinine has improved. 8. Hypothyroidism: Started on levothyroxine 25 g daily. Recheck TSH in 4-6 weeks. 9. Hypokalemia: Improved following supplementation of potassium. Discharge Planning Transfer to medical/psychiatric unit. Bill Holt MD Feb 06, 2017 15:35
--- NOTE | 2017-02-06 15:40 | HHI.PYPN ---
Subjective Remarks Patient was seen today for psychiatric reevaluation, patient is found alert, pleasantly demented, oriented in person, but disoriented in time and place. Patient reports good mood, she reports good appetite, good sleep at night, she denies suicidal and homicidal ideation, she denies visual and auditory hallucinations. No agitation, no aggressive behavior, no hostility or behavior dysregulation has been reported. Been compliant with his medications,and medical side effects. Review of Systems Other no Somatic complaints Objective Alert: Yes [place]: Person Mood: Happy Affect: Other (smiling) Memory Intact: Immediate, Comment (impaired) Hallucinations: Other (does not appear internally stimulated) Delusions: Yes Delusion Type: Paranoid (decreased, mild) Suicidal: Ideation (denies) Homicidal: Ideation (denies) Insight/Judgment Is poor Labs Test 02/06/17 11:53 Blood Urea Nitrogen 28 MG/DL Creatinine 1.01 MG/DL Random Glucose 117 MG/DL Calcium Level 9.2 MG/DL Sodium Level 139 MEQ/L Potassium Level 3.7 MEQ/L Chloride Level 105 MEQ/L Carbon Dioxide Level 30.6 MEQ/L Anion Gap 3 MEQ/L Estimat Glomerular Filtration Rate 55 ML/MIN Date/Time Source Procedure Growth Status 02/02/17 22:54 Blood Peripheral Aerobic Blood Culture - Preliminary NO GROWTH IN 4 DAYS Resulted 02/02/17 22:54 Blood Peripheral Anaerobic Blood Culture - Preliminary NO GROWTH IN 4 DAYS Resulted Vitals/IOs Vital Signs Date Time Temp Pulse Resp B/P (MAP) Pulse Ox O2 Delivery O2 Flow Rate FiO2 02/06/17 00:00 98.0 58 16 120/62 (81) 94 Intake and Output 02/06/17 02/06/17 02/07/17 08:00 16:00 00:00 Intake Total 120 ml 120 ml Balance 120 ml 120 ml Assessment & Plan Problem List: (1) Major neurocognitive disorder ICD Codes: F03.90 - Unspecified dementia without behavioral disturbance Assessment & Plan: She will continue psychiatric hospitalization for stabilization and safety. Continue current psychotropic regimen. (2) Major neurocognitive disorder with Lewy bodies, possible ICD Codes: G31.83 - Dementia with Lewy bodies; F02.80 - Dementia in other diseases classified elsewhere without behavioral disturbance Status: Chronic Assessment & Plan Estimated LOS: days Justification for Cont. Inpt. Patient has an elevated risk to decompensate at a lower level of care. Jer Sánchez MD Feb 06, 2017 15:40
--- NOTE | 2017-02-06 16:00 | PD.TTN ---
Patient Problems 1. Discharge planning 2. Medication compliance 3. Knowledge deficit 4. Lack of coping skills Progress Toward Goals Provider Present: Dr. Demarco Martínez, Dr. Tabitha Sánchez Provider Input: Dr. Sánchez's treatment team met to discuss treatment plan, medication, and discharge. Patient is doing well. Patient will continue on the same treatment regiment. Psychiatric Counselors Present: SLAVA MorrisMindy Psych Therapist Input: Patient presented cooperative but constricted, calm, seclusive, affect appropriate. Patient made poor eye contact. Patient is non aggressive, medication compliant. Patient presents with bizarre content. Patient refused her food today. Patient is not sleeping well, patient only slept 1 hour and was restless, agitated. patient is being transported to medical floor for medical reasons. Group Spec/RT/OT/FREGOSO Present: ZENOBIA Eldridge Group Spec/RT/OT/FREGOSO Input: Patient does not participate in groups. Tasha Hinton [facility] Feb 06, 2017 16:00
--- NOTE | 2017-02-06 16:19 | RADRPT ---
EXAM DATE/TIME: 02/06/2017 15:19 [place] COMPARISON: No previous studies available for comparison. INDICATIONS : Short of breath. MEDICAL HISTORY : Hypertension. Bipolar. Cerebrovascular accident. Atrial fibrillation. COPD. SURGICAL HISTORY : Hysterectomy. Cholecystectomy ENCOUNTER: Subsequent ACUITY: 1 week PAIN SCORE: Non-responsive. LOCATION: Bilateral chest FINDINGS: The lungs are clear. The heart is minimally enlarged. The pulmonary vascularity is normal. There is n o evidence for infiltrate or failure. The portion of the bony skeleton visualized is unremarkable. CONCLUSION: Compensated cardiomegaly otherwise negative Moses Real MD FACR on February 06, 2017 at 16:17 Board Certified Radiologist. This report was verified electronically.
[2017-02-06 18:36] VITALS: BP 128/66; PULSE 77; RESP 16; TEMP 97
[2017-02-06 18:37] VITALS: BP 114/59; PULSE 59; RESP 16; TEMP 98.1; O2SAT 97
[2017-02-07 05:40] VITALS: BP 115/58; PULSE 15; RESP 18; TEMP 98.5; O2SAT 95
[2017-02-07] MEDS: LEVOTHYROXINE SODIUM 25 MCG TAB PO SCH (06:09)
[2017-02-07] MEDS: QUEtiapine FUMARATE 25 MG TAB PO SCH ×2 (08:39→11:58)
--- NOTE | 2017-02-07 09:08 | HHI.PR ---
Subjective Remarks Follow-up visit Left abdomen/pelvis hematoma, status post fall. Patient seen and examined today. She is doing well. As per nursing, no acute issues overnight. States she hasn't been seen by physical therapy today. But has been able to get out of bed and ambulate short distances. Slight discomfort on the left than pelvic area. Denies SOB/ dyspnea. Denies chest pain, palpitations, headaches, dizziness. Denies fevers, chills, n/v/d. Objective Vitals Vital Signs Date Time Temp Pulse Resp B/P (MAP) Pulse Ox O2 Delivery O2 Flow Rate FiO2 02/07/17 05:40 98.5 15 18 115/58 (77) 95 02/06/17 18:37 98.1 59 16 114/59 (77) 97 02/06/17 18:36 97.0 77 16 128/66 (86) I/O 02/06/17 02/06/17 02/06/17 02/07/17 02/07/17 02/07/17 07:00 15:00 23:00 07:00 15:00 23:00 Intake Total 0 ml 240 ml 120 ml Balance 0 ml 240 ml 120 ml Intake Oral 0 ml 240 ml 120 ml # Voids 2 2 1 1 Result Diagram: 02/05/17 0700 02/06/17 1153 Imaging Last Impressions Chest X-Ray 02/06/17 0000 Signed Impressions: Service Date/Time: Monday, February 06, 2017 15:19 - CONCLUSION: Compensated cardiomegaly otherwise negative Moses Real MD FACR Renal Ultrasound 02/04/17 0000 Signed Impressions: Service Date/Time: Saturday, February 04, 2017 13:30 - CONCLUSION: 1. Normal examination. Hair Real MD Soft Tissue Ultrasound 02/03/17 0000 Signed Impressions: Service Date/Time: Friday, February 03, 2017 11:45 - CONCLUSION: Known large hematoma is not as well-visualized by ultrasound. Lennox Sung MD Head CT 02/02/17 0000 Signed Impressions: Service Date/Time: Thursday, February 02, 2017 21:21 - CONCLUSION: Negative Noncontrast CT. Lennox Sung MD Chest CT 02/02/17 0000 Signed Impressions: Service Date/Time: Thursday, February 02, 2017 21:24 - CONCLUSION: 1. Negative trauma study. 2. Underlying emphysema. 3. Mild scarring or atelectasis in the left lower lobe. Lennox Sung MD Abdomen/Pelvis CT 02/02/17 0000 Signed Impressions: Service Date/Time: Thursday, February 02, 2017 21:24 - CONCLUSION: 1. Large subcutaneous hematoma along the left posterior-lateral lower chest and upper abdomen. 2. Status post cholecystectomy. 3. Mild patchy scarring or atelectasis left lung base. 4. No evidence of visceral injury or fracture. Lennox Sung MD Brain MRI 02/01/17 0000 Signed Impressions: Service Date/Time: Wednesday, February 01, 2017 12:29 - CONCLUSION: Chronic ischemic small vessel vasculopathy. No acute intracranial abnormality. Chavez Burt MD Hip and Pelvis X-Ray 01/28/17 0000 Signed Impressions: Service Date/Time: Saturday, January 28, 2017 17:09 - CONCLUSION: Mild degenerative changes negative for fracture. Moses Real MD FACR Hip X-Ray 01/28/17 0000 Signed Impressions: Service Date/Time: Saturday, January 28, 2017 17:13 - CONCLUSION: Mild degenerative changes, negative for fracture. Moses Real MD FACR Objective Remarks GENERAL: This is a well-nourished, well-developed patient, in no apparent distress. SKIN: Warm and dry. Hematoma noted bilateral abdomen area and pelvis. Stable. HEENT: Normocephalic. Pupils equal round and reactive. Nose without bleeding. Airway patent. NECK: Trachea midline. No JVD. Supple. CARDIOVASCULAR: Regular rate and rhythm without murmurs, gallops, or rubs. RESPIRATORY: Breath sounds equal bilaterally. No wheezes, rales, or rhonchi. GASTROINTESTINAL: Abdomen soft, nondistended. Bowel Sounds normoactive x4. MUSCULOSKELETAL: Extremities without clubbing, or edema. NEUROLOGICAL: Awake and alert. Oriented to place. Moves all extremities. Normal speech. Procedures None A/P Problem List: (1) Subcutaneous hematoma ICD Code: T14.8 - Other injury of unspecified body region (2) Encephalopathy ICD Code: G93.40 - Encephalopathy, unspecified Assessment and Plan 66 year-old female with a history of atrial fibrillation, hypertension and bipolar disorder who presented to hospital with psychosis and fell on unit resulting in large subcutaneous hematoma. Bipolar disorder: Management per psychiatry team. Encephalopathy, resolved. Continue psych medications as indicated by psychiatry. Monitor neuro status. Subcutaneous hematoma secondary to fall 01/28/17 - Head CT was negative, brain MRI 02/01 showed chronic ischemic small vessel vasculopathy with no acute intracranial abnormality. - Abdomen/pelvis CT reviewed showing a large subcutaneous hematoma along the left posterior lateral lower chest and upper abdomen. Mild patchy scarring or atelectasis in left lung base also noted on this test. There was no evidence of visceral injury or fracture. - Evaluated by Dr. Santiago, appreciate recommendations. Continue to hold Eliquis. Monitor area of ecchymosis/hematoma. No surgical intervention at this time, monitor for skin breakdown which would require operative intervention. - Continue to monitor H&H. Stable. - PT eval and treat. Patient is able to ambulate with assist. - Monitor BMP. CPK mildly elevated, encourage PO intake. Leukocytosis suspect secondary to hematoma vs infection vs hemoconcentration - white count trending down - Blood cultures show no growth x 1 day. Follow. UA resulted, no evidence of infection. - Resolved Atrial fibrillation: Currently in NSR. On Eliquis at home, now on hold due to recent fall and hematoma development. Continue to hold. Continue metoprolol. Hypertension - Controlled - Continue patient on Cozaar and Lopressor - monitor BP ?JOELLEN on CKD Elevated BUN - Unknown baseline - encourage fluids - hold Lasix - avoid nephrotoxic agents - Renal US reviewed showing a normal examination. - continue to monitor BMP - Improving. Trend. Hypothyroidism: TSH 76. Free t3 1.07 and free t4 0.60. Patient is not aware of thyroid history, will start on Levothyroxine 25 mcg PO daily. - Follow-up in outpatient 4-6 weeks DVT Prophylaxis: Ambulation. Eliquis on hold. Discussed with patient and Dr. Canales Discharge Planning Patient may transfer to regular psychiatry unit. Continue fall precautions. Rose Julian Feb 07, 2017 09:08
[2017-02-07] MEDS: METOPROLOL TARTRATE 25 MG TAB PO SCH ×2 (09:10→20:59)
[2017-02-07] MEDS: LOSARTAN 25 MG TAB PO SCH (09:10)
--- NOTE | 2017-02-07 14:32 | HHI.PR ---
Subjective Subjective Notes Confused But able to follow simple commands Objective Vitals/I&O Vital Signs Date Time Temp Pulse Resp B/P (MAP) Pulse Ox O2 Delivery O2 Flow Rate FiO2 02/07/17 05:40 98.5 15 18 115/58 (77) 95 Labs Date/Time Source Procedure Growth Status 02/02/17 22:54 Blood Peripheral Aerobic Blood Culture - Final NO GROWTH IN 5 DAYS Complete 02/02/17 22:54 Blood Peripheral Anaerobic Blood Culture - Final NO GROWTH IN 5 DAYS Complete Cardiovascular: Regular Lungs: Clear Abdomen: Non-distended, Non-tender Extremities: No edema Narrative Exam Large LEFT flank hematoma---- skin intact; tender; hematoma does slightly extend to prior made border A/P Assessment and Plan 66 year old female s/p fall; on chronic anticoagulation; with large LEFT flank hematoma -Continue to hold Eliquis -Skin intact -No surgical plans at this time -Will continue to reassess every few days Attending Note - Dr. Santiago Hematoma stable and non-infected Skin intact The exam, history, and the medical decision-making described in the above note were completed with the assistance of the mid-level provider. I reviewed and agree with the findings presented. I attest that I had a [id number] encounter with the patient on the same day, and personally performed and documented my assessment and findings in the medical record. Jazmyn Jennings Feb 07, 2017 14:32 Lennox Santiago MD Feb 10, 2017 10:29
--- NOTE | 2017-02-07 15:53 | HHI.PYPN ---
Subjective Remarks Patient is seen today for psychiatric reevaluation, patient is pleasantly confused, smiling, reports happy mood, she says that she is very happy to be here "in the school with my friends", denies depressive symptoms, denies anxiety , denies perceptual disturbances, denies suicidal and homicidal ideation. Patient doesn't seem to be internally stimulated, no episodes of agitation, aggressive behavior or visual hallucinations reported. She is compliant with her medications, no significant side effects at this point. Review of Systems Other No somatic complaints Objective Alert: Yes [place]: Person Mood: Happy Affect: Other (smiling) Memory Intact: Immediate, Comment (impaired) Hallucinations: Other (does not appear internally stimulated) Delusions: Yes Delusion Type: Paranoid (decreased, mild) Suicidal: Ideation (denies) Homicidal: Ideation (denies) Insight/Judgment Poor Labs Date/Time Source Procedure Growth Status 02/02/17 22:54 Blood Peripheral Aerobic Blood Culture - Final NO GROWTH IN 5 DAYS Complete 02/02/17 22:54 Blood Peripheral Anaerobic Blood Culture - Final NO GROWTH IN 5 DAYS Complete Vitals/IOs Vital Signs Date Time Temp Pulse Resp B/P (MAP) Pulse Ox O2 Delivery O2 Flow Rate FiO2 02/07/17 05:40 98.5 15 18 115/58 (77) 95 Intake and Output 02/07/17 02/07/17 02/08/17 08:00 16:00 00:00 Intake Total 1200 ml Output Total 0 ml Balance 1200 ml Assessment & Plan Problem List: (1) Major neurocognitive disorder ICD Codes: F03.90 - Unspecified dementia without behavioral disturbance (2) Major neurocognitive disorder with Lewy bodies, possible ICD Codes: G31.83 - Dementia with Lewy bodies; F02.80 - Dementia in other diseases classified elsewhere without behavioral disturbance Status: Chronic Assessment & Plan Estimated LOS: days Justification for Cont. Inpt. Will continue current psychotropic regimen. Patient is to continue psychiatric admission for stabilization and safety. Jer Sánchez MD Feb 07, 2017 15:52
[2017-02-07 17:38] VITALS: BP 123/71; PULSE 62; RESP 15; TEMP 97.7; O2SAT 94
[2017-02-07] MEDS: ACETAMINOPHEN 325 MG TAB PO PRN (21:00)
[2017-02-08 05:03] VITALS: BP 128/59; PULSE 62; RESP 15; TEMP 97.6; O2SAT 95
[2017-02-08] MEDS: LEVOTHYROXINE SODIUM 25 MCG TAB PO SCH (06:20)
--- NOTE | 2017-02-08 09:06 | HHI.PR ---
Subjective Remarks Follow-up visit Left abdomen/pelvis hematoma, status post fall. Patient seen and examined today. Physical therapy at the bedside. Patient is able to ambulate 1 assist but would need rolling walker use as her gait continues to be unsteady. As per nursing, no acute issues overnight. Reports mild discomfort left abdominal and pelvic area. Denies SOB/ dyspnea. Denies chest pain, headaches, dizziness. Denies fevers, chills, n/v/d. Objective Vitals Vital Signs Date Time Temp Pulse Resp B/P (MAP) Pulse Ox O2 Delivery O2 Flow Rate FiO2 02/08/17 05:03 97.6 62 15 128/59 (82) 95 02/07/17 17:38 97.7 62 15 123/71 (88) 94 I/O 02/07/17 02/07/17 02/07/17 02/08/17 02/08/17 02/08/17 07:00 15:00 23:00 07:00 15:00 23:00 Intake Total 720 ml 1080 ml Output Total 0 ml Balance 720 ml 1080 ml Intake Oral 720 ml 1080 ml Output Urine Total 0 ml # Voids 1 3 1 Result Diagram: 02/05/17 0700 02/06/17 1153 Imaging Last Impressions Chest X-Ray 02/06/17 0000 Signed Impressions: Service Date/Time: Monday, February 06, 2017 15:19 - CONCLUSION: Compensated cardiomegaly otherwise negative Moses Real MD FACR Renal Ultrasound 02/04/17 0000 Signed Impressions: Service Date/Time: Saturday, February 04, 2017 13:30 - CONCLUSION: 1. Normal examination. Hair Real MD Soft Tissue Ultrasound 02/03/17 0000 Signed Impressions: Service Date/Time: Friday, February 03, 2017 11:45 - CONCLUSION: Known large hematoma is not as well-visualized by ultrasound. Lennox Sung MD Head CT 02/02/17 0000 Signed Impressions: Service Date/Time: Thursday, February 02, 2017 21:21 - CONCLUSION: Negative Noncontrast CT. Lennox Sung MD Chest CT 02/02/17 0000 Signed Impressions: Service Date/Time: Thursday, February 02, 2017 21:24 - CONCLUSION: 1. Negative trauma study. 2. Underlying emphysema. 3. Mild scarring or atelectasis in the left lower lobe. Lennox Sung MD Abdomen/Pelvis CT 02/02/17 0000 Signed Impressions: Service Date/Time: Thursday, February 02, 2017 21:24 - CONCLUSION: 1. Large subcutaneous hematoma along the left posterior-lateral lower chest and upper abdomen. 2. Status post cholecystectomy. 3. Mild patchy scarring or atelectasis left lung base. 4. No evidence of visceral injury or fracture. Lennox Sung MD Brain MRI 02/01/17 0000 Signed Impressions: Service Date/Time: Wednesday, February 01, 2017 12:29 - CONCLUSION: Chronic ischemic small vessel vasculopathy. No acute intracranial abnormality. Chavez Burt MD Hip and Pelvis X-Ray 01/28/17 0000 Signed Impressions: Service Date/Time: Saturday, January 28, 2017 17:09 - CONCLUSION: Mild degenerative changes negative for fracture. Moses Real MD FACR Hip X-Ray 01/28/17 Signed Impressions: Service Date/Time: Saturday, January 28, 2017 17:13 - CONCLUSION: Mild degenerative changes, negative for fracture. Moses Real MD FACR Objective Remarks GENERAL: This is a well-nourished, well-developed patient, in no apparent distress. SKIN: Warm and dry. Hematoma noted bilateral abdomen area and pelvis. Stable. HEENT: Normocephalic. Pupils equal round and reactive. Nose without bleeding. Airway patent. NECK: Trachea midline. Supple. CARDIOVASCULAR: Regular rate and rhythm without murmurs, gallops, or rubs. RESPIRATORY: Breath sounds equal bilaterally. No wheezes, rales, or rhonchi. GASTROINTESTINAL: Abdomen soft, nondistended. Bowel Sounds normoactive x4. MUSCULOSKELETAL: Extremities without clubbing, or edema. NEUROLOGICAL: Awake and alert. Oriented to place. Moves all extremities. Normal speech. Procedures None A/P Problem List: (1) Subcutaneous hematoma ICD Code: T14.8 - Other injury of unspecified body region (2) Encephalopathy ICD Code: G93.40 - Encephalopathy, unspecified Assessment and Plan 66 year-old female with a history of atrial fibrillation, hypertension and bipolar disorder who presented to hospital with psychosis and fell on unit resulting in large subcutaneous hematoma. Bipolar disorder: Management per psychiatry team. Encephalopathy, resolved. Continue psych medications as indicated by psychiatry. Monitor neuro status. Subcutaneous hematoma secondary to fall 01/28/17 - Head CT was negative, brain MRI 02/01 showed chronic ischemic small vessel vasculopathy with no acute intracranial abnormality. - Abdomen/pelvis CT reviewed showing a large subcutaneous hematoma along the left posterior lateral lower chest and upper abdomen. Mild patchy scarring or atelectasis in left lung base also noted on this test. There was no evidence of visceral injury or fracture. - Evaluated by Dr. Santiago, appreciate recommendations. Continue to hold Eliquis. Monitor area of ecchymosis/hematoma. No surgical intervention at this time, monitor for skin breakdown which would require operative intervention. - Continue to monitor H&H. Stable. - Encourage PO intake. - PT eval and treat. Patient is able to ambulate with assist. Use rolling walker at home. May benefit with assisted-living facility placement or [facility] facility placement. Patient is a risk for fall secondary to cognitive function. - Warm compresses and the hematoma site on and off at home. Leukocytosis suspect secondary to hematoma vs infection vs hemoconcentration - white count trending down - Blood cultures show no growth x 1 day. Follow. UA resulted, no evidence of infection. - Resolved Atrial fibrillation: Currently in NSR. On Eliquis at home, now on hold due to recent fall and hematoma development. Continue to hold. Continue metoprolol. - Follow-up with PCP, for restarting Eliquis if hematoma is stable Hypertension - Controlled - Continue patient on Cozaar and Lopressor - monitor BP ?JOELLEN on CKD Elevated BUN - Unknown baseline - encourage fluids - hold Lasix - avoid nephrotoxic agents - Renal US reviewed showing a normal examination. - continue to monitor BMP - Improving. Trend. Hypothyroidism: TSH 76. Free t3 1.07 and free t4 0.60. Patient is not aware of thyroid history, will start on Levothyroxine 25 mcg PO daily. - Follow-up in outpatient 4-6 weeks DVT Prophylaxis: Ambulation. Eliquis on hold. Discussed with patient and Dr. Ally Timmons from hospitalist standpoint. Cleared for discharge. May go home with family members. May benefit with assisted living facility or [facility] facility. Follow-up with primary care provider for restarting Eliquis and checking TSH levels. Discharge Planning Stable from hospitalist standpoint. Cleared for discharge. May go home with family members. May benefit with assisted living facility or [facility] facility. Rose Julian Feb 08, 2017 09:06
[2017-02-08] MEDS ORDERED: GETGO ROLLING W1 MI1 (09:07)
[2017-02-08] MEDS: LOSARTAN 25 MG TAB PO SCH (09:09)
[2017-02-08] MEDS: QUEtiapine FUMARATE 25 MG TAB PO SCH ×2 (09:10→13:38)
[2017-02-08] MEDS: METOPROLOL TARTRATE 25 MG TAB PO SCH ×2 (09:10→21:00)
--- NOTE | 2017-02-08 11:52 | HHI.PYPN ---
Subjective Remarks Patient was seen today for psychiatric reevaluation, patient is calm, cooperative, pleasantly confused. She reports good mood, she said that she is happy here, she asked to be sent home with her kids, she is unable to stay where she is at at this moment. Patient has been compliant with her medications , no significant side effects. She does not seem to be oversedated. No agitation, no aggressive behavior, no hostility, no adonay or psychosis reported. Review of Systems Other No somatic complaints Objective Alert: Yes [place]: Person Mood: Happy Affect: Other (smiling) Memory Intact: Immediate, Comment (impaired) Hallucinations: Other (does not appear internally stimulated) Delusions: Yes Delusion Type: Paranoid (decreased, mild) Suicidal: Ideation (denies) Homicidal: Ideation (denies) Insight/Judgment Poor Labs Date/Time Source Procedure Growth Status 02/02/17 22:54 Blood Peripheral Aerobic Blood Culture - Final NO GROWTH IN 5 DAYS Complete 02/02/17 22:54 Blood Peripheral Anaerobic Blood Culture - Final NO GROWTH IN 5 DAYS Complete Vitals/IOs Vital Signs Date Time Temp Pulse Resp B/P (MAP) Pulse Ox O2 Delivery O2 Flow Rate FiO2 02/08/17 05:03 97.6 62 15 128/59 (82) 95 Intake and Output 02/08/17 02/08/17 02/09/17 08:00 16:00 00:00 Intake Total 240 ml Balance 240 ml Assessment & Plan Problem List: (1) Major neurocognitive disorder ICD Codes: F03.90 - Unspecified dementia without behavioral disturbance (2) Major neurocognitive disorder with Lewy bodies, possible ICD Codes: G31.83 - Dementia with Lewy bodies; F02.80 - Dementia in other diseases classified elsewhere without behavioral disturbance Status: Chronic (3) Dementia ICD Codes: F03.90 - Unspecified dementia without behavioral disturbance Assessment & Plan: Continue current psychotropic regimen. Since patient is in the hospital, no adonay or acute psychosis observed. No agitation or aggressive behavior reported. Patient is oriented in person, disoriented in time and place , pleasantly confused. I do not think that this patient has bipolar disorder, I really think that this patient just have a major neurocognitive disorder, possibly with lewy body. At this moment the patient is a baseline, she does not represent an increased danger to self and others, but will continue monitoring behavior and potential medication adjustment. Assessment & Plan Estimated LOS: days Justification for Cont. Inpt. Patient has an increased risk to decompensate out of an structure environment. Problem Qualifiers (1) Dementia: Jer Sánchez MD Feb 08, 2017 11:52
[2017-02-09] MEDS: LEVOTHYROXINE SODIUM 25 MCG TAB PO SCH (05:36)
[2017-02-09 06:03] VITALS: BP 136/61; PULSE 71; RESP 19; TEMP 98.2; O2SAT 95
[2017-02-09] MEDS: QUEtiapine FUMARATE 25 MG TAB PO SCH ×3 (09:00→20:14)
[2017-02-09] MEDS: LOSARTAN 25 MG TAB PO SCH (09:09)
[2017-02-09] MEDS: METOPROLOL TARTRATE 25 MG TAB PO SCH ×2 (09:09→20:14)
[2017-02-09 09:24] LABS: HEMATOCRIT 31.1 % (35.0-46.0); MEAN CELL VOLUME 93.6 FL (80.0-100.0); MEAN CORPUSCULAR HEMOGLOBIN 32.6 PG (27.0-34.0); MEAN CORPUSCULAR HGB CONC 34.9 % (32.0-36.0); PLATELET COUNT 196 TH/MM3 (150-450); RED BLOOD COUNT 3.32 MIL/MM3 (4.00-5.30); RED CELL DISTRIBUTION WIDTH 14.3 % (11.6-17.2); REVIEW FLAG FINAL; WHITE BLOOD COUNT 11.3 TH/MM3 (4.0-11.0)
[2017-02-09 09:41] LABS: BICARBONATE 24.4 MEQ/L (21.0-32.0)
[2017-02-09 09:44] LABS: POTASSIUM 3.7 MEQ/L (3.5-5.1)
--- NOTE | 2017-02-09 13:24 | HHI.PYPN ---
Subjective Remarks Patient was seen and case discussed with nursing. Patient is sedated throughout the interview. Grossly confused. Per nursing she slept for 1 hour. Alert and oriented 1. Objective Alert: Yes [place]: Person Mood: Calm Affect: Blunted Memory Intact: Immediate, Comment (impaired) Hallucinations: Other (does not appear internally stimulated) Delusions: Yes Delusion Type: Paranoid (decreased, mild) Suicidal: Ideation (denies) Homicidal: Ideation (denies) Insight/Judgment Poor Labs Test 02/09/17 08:32 White Blood Count 11.3 TH/MM3 Red Blood Count 3.32 MIL/MM3 Hemoglobin 10.8 GM/DL Hematocrit 31.1 % Mean Corpuscular Volume 93.6 FL Mean Corpuscular Hemoglobin 32.6 PG Mean Corpuscular Hemoglobin Concent 34.9 % Red Cell Distribution Width 14.3 % Platelet Count 196 TH/MM3 Mean Platelet Volume 8.3 FL Hematology Comments Blood Urea Nitrogen 17 MG/DL Creatinine 0.97 MG/DL Random Glucose 149 MG/DL Calcium Level 9.6 MG/DL Sodium Level 137 MEQ/L Potassium Level 3.7 MEQ/L Chloride Level 102 MEQ/L Carbon Dioxide Level 24.4 MEQ/L Anion Gap 11 MEQ/L Estimat Glomerular Filtration Rate 57 ML/MIN Date/Time Source Procedure Growth Status 02/02/17 22:54 Blood Peripheral Aerobic Blood Culture - Final NO GROWTH IN 5 DAYS Complete 02/02/17 22:54 Blood Peripheral Anaerobic Blood Culture - Final NO GROWTH IN 5 DAYS Complete Vitals/IOs Vital Signs Date Time Temp Pulse Resp B/P (MAP) Pulse Ox O2 Delivery O2 Flow Rate FiO2 02/09/17 06:03 98.2 71 19 136/61 (86) 95 Assessment & Plan Problem List: (1) Major neurocognitive disorder ICD Codes: F03.90 - Unspecified dementia without behavioral disturbance (2) Major neurocognitive disorder with Lewy bodies, possible ICD Codes: G31.83 - Dementia with Lewy bodies; F02.80 - Dementia in other diseases classified elsewhere without behavioral disturbance Status: Chronic (3) Dementia ICD Codes: F03.90 - Unspecified dementia without behavioral disturbance Assessment & Plan Given findings, change Seroquel to 50 mg daily at bedtime Justification for Cont. Inpt. Patient will decompensate in a less restrictive setting Problem Qualifiers (1) Dementia: Mark Corral DO Feb 09, 2017 13:24
[2017-02-10 05:14] VITALS: BP 129/59; PULSE 81; RESP 18; TEMP 97.3
[2017-02-10] MEDS: LEVOTHYROXINE SODIUM 25 MCG TAB PO SCH (05:37)
[2017-02-10] MEDS: LOSARTAN 25 MG TAB PO SCH (09:17)
[2017-02-10] MEDS: METOPROLOL TARTRATE 25 MG TAB PO SCH ×2 (09:17→20:53)
--- NOTE | 2017-02-10 13:54 | HHI.PYPN ---
Subjective Remarks Patient was seen and case discussed with nursing. Patient sleep has improved with the increase Seroquel. However she is now irritable during the day. Patient is oppositional during the interview, alert and oriented 1. Insight is poor. Objective Alert: Yes [place]: Person Mood: Calm Affect: Restricted Memory Intact: Immediate, Comment (impaired) Hallucinations: Other (does not appear internally stimulated) Delusions: Yes Delusion Type: Paranoid (decreased, mild) Suicidal: Ideation (denies) Homicidal: Ideation (denies) Insight/Judgment Poor Labs Date/Time Source Procedure Growth Status 02/02/17 22:54 Blood Peripheral Aerobic Blood Culture - Final NO GROWTH IN 5 DAYS Complete 02/02/17 22:54 Blood Peripheral Anaerobic Blood Culture - Final NO GROWTH IN 5 DAYS Complete Vitals/IOs Vital Signs Date Time Temp Pulse Resp B/P (MAP) Pulse Ox O2 Delivery O2 Flow Rate FiO2 02/10/17 05:14 97.3 81 18 129/59 (82) 02/09/17 06:03 95 Intake and Output 02/10/17 02/10/17 02/11/17 08:00 16:00 00:00 Intake Total 240 ml Balance 240 ml Assessment & Plan Problem List: (1) Major neurocognitive disorder ICD Codes: F03.90 - Unspecified dementia without behavioral disturbance (2) Major neurocognitive disorder with Lewy bodies, possible ICD Codes: G31.83 - Dementia with Lewy bodies; F02.80 - Dementia in other diseases classified elsewhere without behavioral disturbance Status: Chronic (3) Dementia ICD Codes: F03.90 - Unspecified dementia without behavioral disturbance Assessment & Plan Added daily Seroquel dose Justification for Cont. Inpt. Patient would decompensate in a less restrictive setting Problem Qualifiers (1) Dementia: Mark Corral DO Feb 10, 2017 13:54
[2017-02-10] MEDS: QUEtiapine FUMARATE 25 MG TAB PO SCH ×3 (14:00→20:53)
[2017-02-10 17:13] VITALS: BP 133/63; PULSE 69; RESP 18; TEMP 98.1; O2SAT 99
[2017-02-11 05:18] VITALS: BP 96/53; PULSE 50; RESP 17; TEMP 97.8
[2017-02-11] MEDS: LEVOTHYROXINE SODIUM 25 MCG TAB PO SCH (05:58)
[2017-02-11] MEDS: QUEtiapine FUMARATE 25 MG TAB PO SCH (08:37)
[2017-02-11] MEDS: METOPROLOL TARTRATE 25 MG TAB PO SCH (09:00)
[2017-02-11] MEDS: LOSARTAN 25 MG TAB PO SCH (09:00)
[2017-02-11] MEDS ORDERED: COZA25TA PO (12:04)
[2017-02-11] MEDS ORDERED: QUET1TAB7 PO (12:04)
[2017-02-11] MEDS ORDERED: METO25TA3 PO (12:04)
--- NOTE | 2017-02-11 12:09 | HHI.DS ---
Psychiatry Discharge Summary Inpatient Psychiatric care?: Yes Advance Directive: No Reason Not Provided: refused Mental Health AdvanceDirective: No Health Care Proxy: No Admission Admission Date Jan 25, 2017 at 20:54 Admission Diagnosis: (1) Major neurocognitive disorder ICD Code: F03.90 - Unspecified dementia without behavioral disturbance Brief History The patient is a 66 year-old woman, domiciled with her son, , with psychiatric history of recently diagnosed bipolar disorder, she was recently hospitalized in [facility], she has established outpatient care in [facility], she is on Haldol 5 mg twice a day, lithium 300 mg twice a day her lithium level here at [facility] in the ER was 0.5, And months ago, medical history of history of hypertension, A. fib, prescribed. The patient tells me that she lost her after 40 years of marriage. On psychiatric evaluation today patient reports that She is very sad and depressed. But she has been seeing people come into her house, through the blinds and set up tables. She states that they 're playing cards in sitting on her scooter. She states she knows that they should not be real but they appear so real. She states she has threatened them and yellow them. She denies suicidal or homicidal ideations but states that she wants to hurt these people so they leave. Her daughter, Donna cross by phone for collateral information, added that since the patient was discharged from her last hospitalization she has been continuously having visual hallucinations that every time has been more intensive and more frequent. She says that the patient also has been talking to herself, very disorganized, engaging herself in a lot of activities at nighttime, sleeping very poorly and sometimes not taking her medications. She says that her visual hallucinations are very anxiety provoking and the patient is very afraid and paranoid about her perceptual disturbances. The patient denies the use of alcohol and illicit drugs. She is oriented 3, no attention deficit or fluctuation of consciousness at this moment. Tobacco Use In Past 30 Days: No Tobacco Past 30 Days Alcohol Use: Never Hospital Course Patient was admitted to the psychiatric unit due to increased auditory hallucinations and agitation. Immediate psychiatric and psychosocial assessment were performed. Safety measures were taken. After a thorough psychiatric assessment and working with family with collateral information, the diagnosis of bipolar disorder was discontinued. Due to progressive dementia, MMs of 21, increased sensitivity to high potency antipsychotics, also difficulties with gait and bilateral tremors and also due to very vivid auditory hallucinations, patient was diagnosed with dementia most probably with Lewy Body. She was treated accordingly. She showed a good response to psychotropics, group activities and individual counseling. At the moment of the discharge patient is a baseline, denies depression, denies anxiety, denies adonay and psychosis. No agitation or aggressive behavior has been present, patient comply with medications, no significant side effects. Results Blood Pressure 96 / 53 Vital Signs Date Time Temp Pulse Resp B/P (MAP) Pulse Ox O2 Delivery O2 Flow Rate FiO2 02/11/17 05:18 97.8 50 17 96/53 (67) 02/10/17 17:13 99 Laboratory Tests Test 02/09/17 08:32 White Blood Count 11.3 TH/MM3 (4.0-11.0) Red Blood Count 3.32 MIL/MM3 (4.00-5.30) Hemoglobin 10.8 GM/DL (11.6-15.3) Hematocrit 31.1 % (35.0-46.0) Random Glucose 149 MG/DL (74-106) Estimat Glomerular Filtration Rate 57 ML/MIN (>89) Laboratory Results Test 01/25/17 15:00 02/04/17 10:10 [place] Level 0.5 MEQ/L (0.5-1.5) Hemoglobin A1c 6.0 % (4.3-6.0) Summary of Major Lab Results Reviewed Summary of Procedures Non- Imaging Last Impressions Chest X-Ray 02/06/17 0000 Signed Impressions: Service Date/Time: Monday, February 06, 2017 15:19 - CONCLUSION: Compensated cardiomegaly otherwise negative Moses Real MD FACR Renal Ultrasound 02/04/17 0000 Signed Impressions: Service Date/Time: Saturday, February 04, 2017 13:30 - CONCLUSION: 1. Normal examination. Hair Real MD Soft Tissue Ultrasound 02/03/17 0000 Signed Impressions: Service Date/Time: Friday, February 03, 2017 11:45 - CONCLUSION: Known large hematoma is not as well-visualized by ultrasound. Lennox Sung MD Head CT 02/02/17 0000 Signed Impressions: Service Date/Time: Thursday, February 02, 2017 21:21 - CONCLUSION: Negative Noncontrast CT. Lennox Sung MD Chest CT 02/02/17 0000 Signed Impressions: Service Date/Time: Thursday, February 02, 2017 21:24 - CONCLUSION: 1. Negative trauma study. 2. Underlying emphysema. 3. Mild scarring or atelectasis in the left lower lobe. Lennox Sung MD Abdomen/Pelvis CT 02/02/17 0000 Signed Impressions: Service Date/Time: Thursday, February 02, 2017 21:24 - CONCLUSION: 1. Large subcutaneous hematoma along the left posterior-lateral lower chest and upper abdomen. 2. Status post cholecystectomy. 3. Mild patchy scarring or atelectasis left lung base. 4. No evidence of visceral injury or fracture. Lennox Sung MD Brain MRI 02/01/17 0000 Signed Impressions: Service Date/Time: Wednesday, February 01, 2017 12:29 - CONCLUSION: Chronic ischemic small vessel vasculopathy. No acute intracranial abnormality. Chavez Burt MD Hip and Pelvis X-Ray 01/28/17 0000 Signed Impressions: Service Date/Time: Saturday, January 28, 2017 17:09 - CONCLUSION: Mild degenerative changes negative for fracture. Moses Real MD FACR Hip X-Ray 01/28/17 0000 Signed Impressions: Service Date/Time: Saturday, January 28, 2017 17:13 - CONCLUSION: Mild degenerative changes, negative for fracture. Moses Real MD FACR Pending results at discharge: No Medications # of Antipsychotic meds at D/C: 1 Approp Antipsych med options 1 - Minimum of three failed multiple trials of monotherapy. 2 - Documented plan to taper to monotherapy due to previous use of multiple meds OR cross-taper in progress at D/C. 3 - Documentation of augmentation of Clozapine. 4 - Justification other than those listed in allowable values 1-3, document here : Discharge Discharge Date: Feb 11, 2017 Discharge Diagnosis: (1) Major neurocognitive disorder with Lewy bodies, possible ICD Code: G31.83 - Dementia with Lewy bodies; F02.80 - Dementia in other diseases classified elsewhere without behavioral disturbance Status: Chronic Mental Status Exam at Disch woman, age appearing, [facility], calm and cooperative. Her speech is soft and low tone. Her mood is euthymic, affect is congruent with mood. Thought processes linear and goal-directed, thought content is devoid of suicidal ideation, homicidal ideation, visual and auditory hallucinations. Insight, impulse control, judgment are fair. Cognition is impaired due to level of dementia. Pt Condition on Discharge: Stable Discharge Disposition: Discharge to SNF Discharge Instructions Diet Instructions: Heart Healthy Diet Activities you can perform: Weight Bearing as [place] Appointment Date: Feb 11, 2017 Discharge Time > 30 minutes Discharge/Advance Care Plan Health Problems: (1) Major neurocognitive disorder (2) Major neurocognitive disorder with Lewy bodies, possible (3) Dementia Goals to promote your health * To prevent worsening of your condition and complications * To maintain your health at the optimal level Directions to meet your goals Take your medications as prescribed Follow your dietary instruction Follow activity as directed Keep your appointments as scheduled Take your immunizations and boosters as scheduled If your symptoms worsen call your PCP, if no PCP go to Urgent Care Center or Emergency Room For 03/12 questions related to your inpatient stay or results of tests pending at discharge, please contact Dr. Jer Sánchez at Smoking is Dangerous to Your Health. Avoid second hand smoking Jer Sánchez MD Feb 11, 2017 12:09
== END 2017-02-11 19:15 | DRG 885 ==
LOC: NEPD 13:17 → NEDA 01-25 20:54 → H260 01-25 22:35 → H250 01-26 12:35 → H4EA 02-06 20:00 → H250 02-08 14:45
PROVIDERS: ADMIT Psychiatry & Neurology Psychiatry; ATTEND Psychiatry & Neurology Psychiatry
DX: F31.9 Bipolar disorder, unspecified (principal); G93.40 Encephalopathy, unspecified; N17.9 Acute kidney failure, unspecified; E11.22 Type 2 diabetes mellitus with diabetic chronic kidney disease; G31.83 Neurocognitive disorder with Lewy bodies; I48.91 Unspecified atrial fibrillation; F02.80 Dementia in other diseases classified elsewhere, unspecified severity, without behavioral disturbance, psychotic disturbance, mood disturbance, and anxiety; F01.50 Vascular dementia, unspecified severity, without behavioral disturbance, psychotic disturbance, mood disturbance, and anxiety; I12.9 Hypertensive chronic kidney disease with stage 1 through stage 4 chronic kidney disease, or unspecified chronic kidney disease; G25.3 Myoclonus; J43.9 Emphysema, unspecified; N18.3 Chronic kidney disease, stage 3 (moderate); Z86.73 Personal history of transient ischemic attack (TIA), and cerebral infarction without residual deficits; R44.1 Visual hallucinations; S30.1XXA Contusion of abdominal wall, initial encounter; S70.12XA Contusion of left thigh, initial encounter; W19.XXXA Unspecified fall, initial encounter; H91.90 Unspecified hearing loss, unspecified ear; E86.0 Dehydration; E03.9 Hypothyroidism, unspecified; E87.6 Hypokalemia
CPT/HCPCS: 70450; 70551; 71010; 71250; 73502; 74176; 76775; 76999; 80048; 80053; 80178; 80307; 81001; 82550; 82552; 83036; 83735; 84439; 84443; 84481; 85025; 85027; 85610; 87040; 93005; 95819

== ENCOUNTER 2017-07-18 03:31 | Observation (INO) | payer MEDICARE, OTHER ==
[~2017-07-18] VITALS: Ht 160 cm; Wt 85.5 kg
[~2017-07-18 03:31] MED LIST: APIX5TAB PO; BENZ0.5T PO; CEFU1TAB20 PO; CENTCHW4 CHEW; COZA25TA PO; FURO40TA PO; GETGO ROLLING W1 MI1; GLUC500T4 PO; HALO5TAB PO; LITH300C2 PO; LOSA25TA PO; MAGN100T2 PO; METO25TA3 PO; QUET1TAB7 PO; TEMA15CA PO; TURM500C7 PO
[2017-07-18 03:36] VITALS: BP 199/90; PULSE 66; RESP 20; TEMP 98; O2SAT 97
--- NOTE | 2017-07-18 03:52 | PD ---
HPI Chief Complaint: Chest Pain Time Seen by Provider: 03:46 Travel History International Travel<30 days: No Contact w/Intl Traveler<30days: No Traveled to known affect area: No History of Present Illness HPI 66-year-old female presents to the emergency department by EMS transportation from local assisted and rehab facility for evaluation of chest pain with left upper extremity pain. Patient rates discomfort 5/10 in intensity. Patient states she awakened from sleep with left arm heaviness chest pain and shortness of breath. Patient denies orthopnea or PND. Patient denies lower extremity pain or swelling. Patient reportedly has history of previous CHF atrial fibrillation and hypertension. Patient states she does not know her medications. Patient reports she was hospitalized here in the [facility] system in the fall and was discharged with multiple medications and she does not know all of her diagnoses. Patient does not have any nausea or vomiting or referred neck jaw back or abdominal pain. Patient does not report any lower extremity numbness tingling or weakness. Patient received aspirin while in route to the hospital by EMS. PFSH Past Medical History Narrative Medical Atrial fibrillation, CHF, COPD, CVA, hypertension, mood disorder; hysterectomy cholecystectomy cardiac ablation; occasional alcohol use; nursing notes reviewed Atrial Fibrillation: Yes Cancer: No Cardiovascular Problems: No Congestive Heart Failure: Yes COPD: Yes Cerebrovascular Accident: Yes Diabetes: No Headaches: No Hypertension: Yes Psychiatric: Yes (hallucinations for a few months now ) Respiratory: Yes Seizures: No Past Surgical History Abdominal Surgery: Yes (GALLBLADDER REMOVAL ) Cardiac Surgery: Yes (A-FIB ABLATION ) Hysterectomy: Yes Social History Alcohol Use: Yes (OCC BEERS ) Tobacco Use: No Substance Use: No Allergies-Medications (Allergen,Severity, Reaction): Coded Allergies: No Known Allergies (Verified Adverse Reaction, Unknown, 07/18/17) Reported Meds & Prescriptions Reported Meds & Active Scripts Active Quetiapine (Quetiapine Fumarate) 25 Mg Tab 25 Mg PO DAILY Walker Rolling/GetGo (Device) 1 Mis Mis Ea .ROUTE DIRECTED Reported Anoro Ellipta Inh (Umeclidinium/Vilanterol) 62.5-25 Mcg/Act Aero 1 Puff INH DAILY Albuterol Neb (Albuterol Sulfate) 2.5 Mg/3 Ml Neb 3 Ml INH Q4HR PRN Tylenol (Acetaminophen) 325 Mg Tab 650 Mg PO Q6H PRN Acidophilus Probiotic (Lactobacillus) 100 Mg (1 Billion Cell) Cap 1 Cap PO 5 TIMES A DAY 10 Days Namzaric (Memantine-Donepezil) 28-10 Mg Cap 1 Cap PO HS Potassium Chloride Microencaps 20 Meq Tab 2 Tab PO DAILY Metoprolol Tartrate 50 Mg Tab 50 Mg PO BID Losartan (Losartan Potassium) 25 Mg Tab 25 Mg PO BID Polyethylene Glycol 3350 Powder (Polyethylene Glycol) 17 Gram Pow 17 Gm PO DAILY Tylenol (Acetaminophen) 325 Mg Tab 650 Mg PO Q4H PRN Levothyroxine (Levothyroxine Sodium) 50 Mcg Tab 50 Mcg PO DAILY Eliquis (Apixaban) 5 Mg Tab 5 Mg PO BID Furosemide 40 Mg Tab 40 Mg PO DAILY Review of Systems Except as stated in HPI: all other systems reviewed are Neg Physical Exam Narrative GENERAL: Well-developed well-nourished female no acute distress or respiratory distress; GCS 15 SKIN: Warm and dry. HEAD: Normocephalic. EYES: No scleral icterus. No injection or drainage. NECK: Supple, trachea midline. No JVD or lymphadenopathy. CARDIOVASCULAR: Regular rate and rhythm without murmurs, gallops, or rubs. Radial and dorsalis pedis pulses 2+ to palpation bilaterally RESPIRATORY: Breath sounds equal bilaterally. No accessory muscle use. GASTROINTESTINAL: Abdomen soft, non-tender, nondistended. MUSCULOSKELETAL: No cyanosis, or edema. BACK: Nontender without obvious deformity. No CVA tenderness. Data Data Last Documented VS Vital Signs Date Time Temp Pulse Resp B/P (MAP) Pulse Ox O2 Delivery O2 Flow Rate FiO2 07/18/17 04:34 62 137/72 (93) 07/18/17 04:15 16 99 Room Air 07/18/17 03:50 2.00 07/18/17 03:36 98.0 Orders Orders Electrocardiogram (07/18/17 03:46) Basic Metabolic Panel (Bmp) (07/18/17 03:46) Ckmb (Isoenzyme) Profile (07/18/17 03:46) Complete Blood Count With Diff (07/18/17 03:46) Magnesium (Mg) (07/18/17 03:46) Prothrombin Time / Inr (Pt) (07/18/17 03:46) Act Partial Throm Time (Ptt) (07/18/17 03:46) Troponin I (07/18/17 03:46) Ecg Monitoring (07/18/17 03:46) Bilateral Bp Monitoring (07/18/17 03:46) Iv Access Insert/Monitor (07/18/17 03:46) Oximetry (07/18/17 03:46) Oxygen Administration (07/18/17 03:46) Sodium Chloride 0.9% Flush (Ns Flush) (07/18/17 04:00) Nitroglycerin Sl (Nitrostat Sl) (07/18/17 04:00) Chest, Pa & Lat (07/18/17 03:46) Sodium Chlor 0.9% 1000 Ml Inj (Ns 1000 M (07/18/17 04:00) Labs Laboratory Tests Test 07/18/17 03:58 White Blood Count 7.2 TH/MM3 Red Blood Count 3.95 MIL/MM3 Hemoglobin 11.9 GM/DL Hematocrit 35.1 % Mean Corpuscular Volume 88.8 FL Mean Corpuscular Hemoglobin 30.2 PG Mean Corpuscular Hemoglobin Concent 34.0 % Red Cell Distribution Width 15.5 % Platelet Count 202 TH/MM3 Mean Platelet Volume 7.7 FL Neutrophils (%) (Auto) 53.0 % Lymphocytes (%) (Auto) 33.5 % Monocytes (%) (Auto) 8.5 % Eosinophils (%) (Auto) 4.3 % Basophils (%) (Auto) 0.7 % Neutrophils # (Auto) 3.8 TH/MM3 Lymphocytes # (Auto) 2.4 TH/MM3 Monocytes # (Auto) 0.6 TH/MM3 Eosinophils # (Auto) 0.3 TH/MM3 Basophils # (Auto) 0.1 TH/MM3 CBC Comment DIFF FINAL Differential Comment Prothrombin Time 10.2 SEC Prothromb Time International Ratio 1.0 RATIO Activated Partial Thromboplast Time 25.6 SEC Blood Urea Nitrogen 16 MG/DL Creatinine 1.04 MG/DL Random Glucose 113 MG/DL Calcium Level 9.6 MG/DL Magnesium Level 2.2 MG/DL Sodium Level 142 MEQ/L Potassium Level 4.1 MEQ/L Chloride Level 106 MEQ/L Carbon Dioxide Level 28.1 MEQ/L Anion Gap 8 MEQ/L Estimat Glomerular Filtration Rate 53 ML/MIN Total Creatine Kinase 42 U/L Troponin I LESS THAN 0.02 NG/ML MDM Medical Decision Making Medical Screen Exam Complete: Yes Emergency Medical Condition: Yes Medical Record Reviewed: Yes Interpretation(s) EKG: Sinus bradycardia rate [address] elevation injury pattern or ectopy noted Last Impressions Chest X-Ray 07/18/17 0346 Signed Impressions: Service Date/Time: July 04:04 - CONCLUSION: No acute cardiopulmonary abnormality is identified. Moncho Falk MD CBC & BMP Diagram 07/18/17 03:58 Calcium Level 9.6, Magnesium Level 2.2 Vital Signs Date Time Temp Pulse Resp B/P (MAP) Pulse Ox O2 Delivery O2 Flow Rate FiO2 07/18/17 04:34 62 137/72 (93) 07/18/17 04:25 197/88 (124) 07/18/17 04:15 55 16 197/88 (124) 99 Room Air 07/18/17 03:50 99 Nasal Cannula 2.00 07/18/17 03:36 98.0 66 20 199/90 (126) 97 inr: 1.0 trop: less than 0.02, not elevated; ck: 42 Differential Diagnosis Chest pain, ACS, myocardial infarction, CHF, pleurisy, costochondritis, PE, pneumonia Narrative Course Patient placed on cheese supervisor with continuous pulse oximetry; patient had received aspirin prior to arrival to the emergency department; IV access obtained specimens collected and patient administered sublingual nitroglycerin Physician Communication Physician Communication admit to [facility] per protocol Diagnosis Primary Impression: Chest pain Admitting Information Admitting Physician Requests: Francine Harper MD Jul 18, 2017 03:52
[2017-07-18] MEDS ORDERED: SODIUM CHLOR 0.9% 1000 ML INJ 1,000 ML IV SCH (04:00)
[2017-07-18] MEDS ORDERED: SODIUM CHLORIDE 0.9% FLUSH 10 ML FLUSH IVF PRN (04:00)
[2017-07-18] MEDS: NITROGLYCERIN 0.4 MG SL 25 TABS/BTL SL SCH ×3 (04:10→04:34)
[2017-07-18 04:15] VITALS: BP 197/88; PULSE 55; RESP 16; O2SAT 99
[2017-07-18 04:18] LABS: AUTOMATED NEUTROPHIL # 3.8 TH/MM3 (1.8-7.7); BASOPHIL # 0.1 TH/MM3 (0-0.2); BASOPHIL % 0.7 % (0.0-2.0); EOSINOPHIL # 0.3 TH/MM3 (0-0.4); EOSINOPHIL % 4.3 % (0.0-4.0); HEMATOCRIT 35.1 % (35.0-46.0); HEMOGLOBIN 11.9 GM/DL (11.6-15.3); LYMPH % 33.5 % (9.0-44.0); LYMPHOCYTE # 2.4 TH/MM3 (1.0-4.8); MEAN CELL VOLUME 88.8 FL (80.0-100.0); MEAN CORPUSCULAR HEMOGLOBIN 30.2 PG (27.0-34.0); MEAN PLATELET VOLUME 7.7 FL (7.0-11.0); MONO % 8.5 % (0.0-8.0); MONOCYTE # 0.6 TH/MM3 (0-0.9); PLATELET COUNT 202 TH/MM3 (150-450); RED BLOOD COUNT 3.95 MIL/MM3 (4.00-5.30); RED CELL DISTRIBUTION WIDTH 15.5 % (11.6-17.2); WHITE BLOOD COUNT 7.2 TH/MM3 (4.0-11.0)
[2017-07-18 04:25] VITALS: BP 197/88
[2017-07-18 04:30] LABS: PROTHROMBIN TIME - PATIENT 10.2 SEC (9.8-11.6)
[2017-07-18 04:32] LABS: BICARBONATE 28.1 MEQ/L (21.0-32.0); BLOOD UREA NITROGEN 16 MG/DL (7-18); CALCIUM 9.6 MG/DL (8.5-10.1); CHLORIDE 106 MEQ/L (98-107); CREATININE 1.04 MG/DL (0.50-1.00); GLOMERULAR FILTRATION RATE 53 ML/MIN (>89); GLUCOSE,RANDOM 113 MG/DL (74-106); MAGNESIUM 2.2 MG/DL (1.5-2.5); SODIUM (NA) 142 MEQ/L (136-145)
[2017-07-18 04:34] VITALS: BP 137/72; PULSE 62
[2017-07-18 04:35] LABS: TROPONIN I LESS THAN 0.02 NG/ML (0.02-0.05)
[2017-07-18] MEDS ORDERED: ACID100C PO (04:40)
[2017-07-18] MEDS ORDERED: TYLE325T PO ×2 (04:40)
[2017-07-18] MEDS ORDERED: UMEC1AER INH (04:40)
[2017-07-18] MEDS ORDERED: LEVO50TA4 PO (04:40)
[2017-07-18] MEDS ORDERED: POLY17S PO (04:40)
[2017-07-18] MEDS ORDERED: ALBU0.08 INH (04:40)
[2017-07-18] MEDS ORDERED: POTA20TA5 PO (04:40)
[2017-07-18] MEDS ORDERED: LOSA25TA PO (04:40)
[2017-07-18] MEDS ORDERED: METO50TA PO (04:40)
[2017-07-18] MEDS ORDERED: MEMA1CAP2 PO (04:40)
--- NOTE | 2017-07-18 04:50 | RADRPT ---
EXAM DATE/TIME: 07/18/2017 04:04 [facility] COMPARISON: CHEST SINGLE AP, February 06, 2017, 15:19. INDICATIONS : Chest pain. MEDICAL HISTORY : Chronic obstructive pulmonary disease. Hypertension. Cerebrovascular accident. Atrial fibrillat ion. SURGICAL HISTORY : Hysterectomy. Cholecystectomy ENCOUNTER: Initial ACUITY: 1 day PAIN SCORE: 4/10 LOCATION: Left chest FINDINGS: Frontal and lateral views of the chest demonstrate a normal-sized cardiac silhouette. No pleural effu dayne, airspace consolidation, or pneumothorax is identified. The bones and soft tissues demonstrate n o acute finding. There are degenerative changes of the thoracic spine. Cholecystectomy clips are pres ent. CONCLUSION: No acute cardiopulmonary abnormality is identified. Moncho Falk MD on July 18, 2017 at 4:47 Board Certified Radiologist. This report was verified electronically.
[2017-07-18] MEDS ORDERED: SODIUM CHLORIDE 0.9% FLUSH 10 ML FLUSH IV FLUSH PRN (05:15)
[2017-07-18] MEDS ORDERED: NITROGLYCERIN 2% OINT 1 GM PACKET TOPICAL ONE (05:15)
[2017-07-18 08:06] VITALS: BP 176/82; PULSE 58; RESP 18; O2SAT 98
[2017-07-18 08:13] LABS: TROPONIN I LESS THAN 0.02 NG/ML (0.02-0.05)
--- NOTE | 2017-07-18 08:32 | HHI.HP ---
[facility] Primary Care Physician Moncho Gaxiola MD Chief Complaint Chest pain History of Present Illness 66-year-old female with history of congestive heart failure, hypertension, and paroxysmal A. fib presents to emergency room for further evaluation of chest pain. Onset 2 AM. Was awakened from sleep. Pain began in left arm and radiated "across chest." Associated symptoms included dyspnea. Denied nausea, vomiting, or diaphoresis. Duration approximately 5 hours, stating discomfort "eased up after nitroglycerin tablet." Endorses similar pain in the past although not as severe, last year when diagnosed with congestive heart failure. Recently hospitalized [facility] or a fecal impaction which she reports severe enough to cause atrial fibrillation during visit. Endorses cardiac ablation twice, most recent May 2016. Follows with Dr. Jessica Solis. His chest pain-free. Review of Systems General: No fatigue,weakness, fever, chills, or change in appetite. States her general state of health has improved since recent hospitalization, with plans to be moved from jail to assisted living soon. HEENT: No GUZMÁN, no vision changes, no nasal congestion or drainage, no dysphasia CV: As stated above. No current chest pain or pressure. RESP: No SOB, cough, wheeze,or recent URI. GI: No nausea, vomiting, bowel changes, diarrhea, constipation, pain, distention , melena, blood in the stool. Unintentional weight gain yesterday morning of #5 , endorses daily weights. : No dysuria, urgency, frequency EXT: No lower leg edema, no paraesthesias MS: No discomfort or change in ROM NEURO: No dizziness, difficulty with balance, LOC, motor/sensory deficits PSYCH: No anxiety, depression SKIN: No rashes, no concerning lesions Past Family Social History Allergies: Coded Allergies: No Known Allergies (Verified Allergy, Unknown, 07/18/17) Past Medical History Atrial fibrillation, CVA, CHF, hypothyroidism, hypertension, COPD, mood disorder Past Surgical History Cholecystectomy, hysterectomy, cardiac ablation 2 (most recent ablation May 2016) Reported Medications Reported Meds & Active Scripts Active Quetiapine (Quetiapine Fumarate) 25 Mg Tab 25 Mg PO DAILY Walker Rolling/GetGo (Device) 1 Mis Mis Ea .ROUTE DIRECTED Reported Anoro Ellipta Inh (Umeclidinium/Vilanterol) 62.5-25 Mcg/Act Aero 1 Puff INH DAILY Albuterol Neb (Albuterol Sulfate) 2.5 Mg/3 Ml Neb 3 Ml INH Q4HR PRN Tylenol (Acetaminophen) 325 Mg Tab 650 Mg PO Q6H PRN Acidophilus Probiotic (Lactobacillus) 100 Mg (1 Billion Cell) Cap 1 Cap PO 5 TIMES A DAY 10 Days Namzaric (Memantine-Donepezil) 28-10 Mg Cap 1 Cap PO HS Potassium Chloride Microencaps 20 Meq Tab 2 Tab PO DAILY Metoprolol Tartrate 50 Mg Tab 50 Mg PO BID Losartan (Losartan Potassium) 25 Mg Tab 25 Mg PO BID Polyethylene Glycol 3350 Powder (Polyethylene Glycol) 17 Gram Pow 17 Gm PO DAILY Tylenol (Acetaminophen) 325 Mg Tab 650 Mg PO Q4H PRN Levothyroxine (Levothyroxine Sodium) 50 Mcg Tab 50 Mcg PO DAILY Eliquis (Apixaban) 5 Mg Tab 5 Mg PO BID Furosemide 40 Mg Tab 40 Mg PO DAILY Active Ordered Medications Current Medications Medications (Trade) Dose Ordered Sig/Dc Route Start Time Stop Time Status Last Admin Sodium Chloride 1,000 ml @ 100 mls/hr Q10H IV 07/18/17 04:00 07/18/17 05:57 (NS Flush) 2 ml UNSCH PRN IV FLUSH 07/18/17 05:15 (NS Flush) 2 ml BID IV FLUSH 07/18/17 09:00 Social History Known hypertension. No known diabetes, coronary artery disease, or hyperlipidemia. Former smoker quitting April 2016. Denies any alcohol or illegal drug use. Resides in jail, with plans to move to assisted-living section. Past cardiac testing No recent cardiac testing or artier catheterization (as was verified with patient's integration director, Dr. Solis.) Dr. Solis states patient was seen on June 10, 2017 in office and most recent cardiac testing per her records are a LEELA 2017- ejection fraction 30%. Physical Exam Vital Signs Vital Signs Date Time Temp Pulse Resp B/P (MAP) Pulse Ox O2 Delivery O2 Flow Rate FiO2 07/18/17 08:06 58 18 176/82 (113) 98 Nasal Cannula 2.00 07/18/17 05:29 Nasal Cannula 2.00 07/18/17 04:34 62 137/72 (93) 07/18/17 04:25 197/88 (124) 07/18/17 04:15 55 16 197/88 (124) 99 Room Air 07/18/17 03:50 99 Nasal Cannula 2.00 07/18/17 03:36 98.0 66 20 199/90 (126) 97 Physical Exam GENERAL: Alert WN, WD, NAD, pleasant, female HEAD: NC, AT CV: RRR, without murmur, rub, gallop, no JVD, S1-S2 no S3-S4. RESP: Clear lungs throughout bilateral, no crackles, wheeze, rhonchi, symmetrical chest rise, nonlabored, able to speak in full sentences ABD: Soft, NT, ND, no masses, positive bowel tones EXT: Pulses +24, no dependent edema MS: Normal tone 4 extremities, nontender, no obvious deformities, full range of motion NEURO: CN II through CN XII grossly intact, motor strength 5/5 PSYCH: A+O 3, pleasant affect, appropriate speech, mood, insight and judgment SKIN: Normal turgor, normal texture, no lesions, no rashes Laboratory Laboratory Tests Test 07/18/17 03:58 07/18/17 07:07 White Blood Count 7.2 Red Blood Count 3.95 Hemoglobin 11.9 Hematocrit 35.1 Mean Corpuscular Volume 88.8 Mean Corpuscular Hemoglobin 30.2 Mean Corpuscular Hemoglobin Concent 34.0 Red Cell Distribution Width 15.5 Platelet Count 202 Mean Platelet Volume 7.7 Neutrophils (%) (Auto) 53.0 Lymphocytes (%) (Auto) 33.5 Monocytes (%) (Auto) 8.5 Eosinophils (%) (Auto) 4.3 Basophils (%) (Auto) 0.7 Neutrophils # (Auto) 3.8 Lymphocytes # (Auto) 2.4 Monocytes # (Auto) 0.6 Eosinophils # (Auto) 0.3 Basophils # (Auto) 0.1 CBC Comment DIFF FINAL Differential Comment Prothrombin Time 10.2 Prothromb Time International Ratio 1.0 Activated Partial Thromboplast Time 25.6 Blood Urea Nitrogen 16 Creatinine 1.04 Random Glucose 113 Calcium Level 9.6 Magnesium Level 2.2 Sodium Level 142 Potassium Level 4.1 Chloride Level 106 Carbon Dioxide Level 28.1 Anion Gap 8 Estimat Glomerular Filtration Rate 53 Total Creatine Kinase 42 40 Troponin I LESS THAN 0.02 LESS THAN 0.02 Result Diagram: 07/18/1735707/18/17357 Imaging Last 48 hours Impressions Chest X-Ray 3/8/18 [id number] Signed Impressions: Service Date/Time: July 04:04 - CONCLUSION: No acute cardiopulmonary abnormality is identified. Moncho Falk MD Course EKG Normal sinus rhythm, Caprinjanet VTE Risk Assessment Caprini VTE Risk Assessment: Mod/High Risk (score >= 2) Caprini Risk Assessment Model Point Value = 1 Point Value = 2 Point Value = 3 Point Value = 5 Age 41-60 Minor surgery BMI > 25 kg/m2 Swollen legs Varicose veins or History of unexplained or recurrent spontaneous Oral contraceptives or hormone replacement Sepsis (< 1 month) Serious lung disease, including pneumonia (< 1 month) Abnormal pulmonary function Acute myocardial infarction Congestive heart failure (< 1 month) History of inflammatory bowel disease Medical patient at bed rest Age 61-74 Arthroscopic surgery Major open surgery (> 45 min) Laparoscopic surgery (> 45 min) Malignancy Confined to bed (> 72 hours) Immobilizing plaster cast Central venous access Age >= 75 History of VTE Family history of VTE Factor V Leiden Prothrombin [id number] Lupus anticoagulant Anticardiolipin antibodies Elevated serum homocysteine Heparin-induced thrombocytopenia Other congenital or acquired thrombophilia Stroke (< 1 month) Elective arthroplasty Hip, pelvis, or leg fracture Acute spinal cord injury (< 1 month) Prophylaxis Regimen Total Risk Factor Score Risk Level Prophylaxis Regimen 0-1 Low Early ambulation 2 Moderate Order ONE of the following: *Sequential Compression Device (SCD) *Heparin 5000 units SQ BID 3-4 Higher Order ONE of the following medications: *Heparin 5000 units SQ TID *Enoxaparin/Lovenox 40 mg SQ daily (WT < 150 kg, CrCl > 30 mL/min) *Enoxaparin/Lovenox 30 mg SQ daily (WT < 150 kg, CrCl > 10-29 mL/min) *Enoxaparin/Lovenox 30 mg SQ BID (WT < 150 kg, CrCl > 30 mL/min) AND/OR *Sequential Compression Device (SCD) 5 or more Highest Order ONE of the following medications: *Heparin 5000 units SQ TID (Preferred with Epidurals) *Enoxaparin/Lovenox 40 mg SQ daily (WT < 150 kg, CrCl > 30 mL/min) *Enoxaparin/Lovenox 30 mg SQ daily (WT < 150 kg, CrCl > 10-29 mL/min) *Enoxaparin/Lovenox 30 mg SQ BID (WT < 150 kg, CrCl > 30 mL/min) AND *Sequential Compression Device (SCD) Assessment and Plan Assessment and Plan #1 Atypical chest pain-the chest pain center. Begin ruling out ACS. Seen and evaluated by Dr. Lei Aguiar. Further cardiac testing will be determined after return call from patient's integration director to determine most recent cardiac testing. Possible Lexiscan if no recent testing completed. This is been discussed with patient who is agreeable plan of care. [address] Jessica Paredes received. No recent cardiac stress testing or history of cardiac catheterization in Dr. Paredes clinical records. Discussed plan of care with Dr. Paredes, who agrees to proceed with chemical cardiac testing this morning. If unremarkable, plans would be to discharge home with follow up with Dr. Paredes. Ivania Briggs Jul 18, 2017 08:32
[2017-07-18] MEDS ORDERED: ACETAMINOPHEN 500 MG CPLT PO PRN (08:45)
[2017-07-18] MEDS ORDERED: ONDANSETRON HCL 4 MG/2 ML VIAL IV PUSH PRN (08:45)
[2017-07-18] MEDS ORDERED: NITROGLYCERIN 0.4 MG SL 25 TABS/BTL SL PRN (08:45)
[2017-07-18] MEDS ORDERED: QUEtiapine FUMARATE 25 MG TAB PO SCH (09:00)
[2017-07-18] MEDS ORDERED: POLYETHYLENE GLYCOL 17 GM PKG PO SCH (09:00)
[2017-07-18] MEDS ORDERED: ASPIRIN 325 MG TAB PO SCH (09:00)
[2017-07-18] MEDS ORDERED: FUROSEMIDE 40 MG TAB PO SCH (09:00)
[2017-07-18] MEDS ORDERED: APIXABAN 5 MG TABLET PO SCH (09:00)
[2017-07-18] MEDS ORDERED: SODIUM CHLORIDE 0.9% FLUSH 10 ML FLUSH IV FLUSH SCH (09:00)
[2017-07-18] MEDS ORDERED: METOPROLOL TARTRATE 50 MG TAB PO SCH (09:00)
[2017-07-18] MEDS ORDERED: LOSARTAN 25 MG TAB PO SCH (09:00)
[2017-07-18] MEDS ORDERED: LEVOTHYROXINE SODIUM 50 MCG TAB PO SCH ×2 (09:00→11:00)
[2017-07-18 11:01] LABS: TROPONIN I LESS THAN 0.02 NG/ML (0.02-0.05)
[2017-07-18 11:03] VITALS: PULSE 60
[2017-07-18] MEDS ORDERED: REGADENOSON INJ 0.4 MG/5 ML SYR ONE (13:10)
--- NOTE | 2017-07-18 14:56 | RADRPT ---
EXAM DATE/TIME: 07/18/2017 13:09 [facility] COMPARISON: No previous studies available for comparison. INDICATIONS : Chest pain. Angina. DOSE: 25.5 mCi Tc99m Myoview at stress. 8.5 mCi Tc99m Myoview at rest. 0.4 mg Lexiscan STRESS SYMPTOMS: Chest pressure, shortness of breath, stomach pressure. EJECTION FRACTION: 61% MEDICAL HISTORY : Chronic obstructive pulmonary disease. Congestive heart failure. Hypertension. SURGICAL HISTORY : Cholecystectomy. Hysterectomy. ENCOUNTER: Initial ACUITY: 1 day PAIN SCALE: 5/10 LOCATION: chest TECHNIQUE: The patient underwent pharmacologic stress with infusion of prescribed dose. Continuous ECG tracing was monitored during stress. Gated SPECT imaging was performed after stress and conventional SPECT i maging was performed at rest. The examination was performed on a SPECT/CT scanner, both attenuation and non-corrected datasets were reviewed. FINDINGS: DISTRIBUTION: The maximum perfused segment at stress is in the apical wall. PERFUSION STUDY: The pattern of perfusion at stress is within normal limits. GATED STUDY: There is intact wall motion and thickening without hypokinetic or dyskinetic segments. CONCLUSION: Unremarkable myocardial perfusion exam RISK CATEGORY: Low Weston Carias MD on July 18, 2017 at 14:54 Board Certified Radiologist. This report was verified electronically.
--- NOTE | 2017-07-18 15:17 | HHI.DCPOC ---
Discharge Care Plan Diagnosis: (1) Atypical chest pain Goals to Promote Your Health * To prevent worsening of your condition and complications * To maintain your health at the optimal level Directions to Meet Your Goals Take your medications as prescribed Follow your dietary instruction Follow activity as directed Keep your appointments as scheduled Take your immunizations and boosters as scheduled If your symptoms worsen call your PCP, if no PCP go to Urgent Care Center or Emergency Room Smoking is Dangerous to Your Health. Avoid second hand smoke Call the 24-hour hour crisis hotline for domestic abuse at Ivania Briggs Jul 18, 2017 15:17
--- NOTE | 2017-07-19 08:45 | EKG ---
Date Performed: 07/18/2017 Time Performed: 03:42:46 PTAGE: 66 years EKG: SINUS BRADYCARDIA BORDERLINE ECG NO PREVIOUS TRACING DOCTOR: Lei Aguiar Interpretating Date/Time 07/19/2017 08:44:11
--- NOTE | 2017-07-19 08:45 | EKG ---
Date Performed: 07/18/2017 Time Performed: 06:56:02 PTAGE: 66 years EKG: SINUS BRADYCARDIA BORDERLINE ECG PREVIOUS TRACING : 07/18/2017 03.42 Since previous tracing, no significant change noted DOCTOR: Lei Aguiar Interpretating Date/Time 07/19/2017 08:44:04
--- NOTE | 2017-07-19 08:45 | EKG ---
Date Performed: 07/18/2017 Time Performed: 10:52:03 PTAGE: 66 years EKG: SINUS BRADYCARDIA BORDERLINE ECG Since PREVIOUS TRACING , no significant change noted DOCTOR: Lei Aguiar Interpretating Date/Time 07/19/2017 08:43:25
--- NOTE | 2017-07-19 08:55 | TR ---
Date Performed: 07/18/2017 Time Performed: 13:39:02 DOCTOR: Lei Aguiar DRUG LIST: CLINICAL HISTORY: ANGINA REASON FOR TEST: REASON FOR ENDING: OBSERVATION: CONCLUSION: Lexiscan stress test was performed under standard four minute protocol. Radionuclid e was injected one minute prior to ending the test. No electrocardiographic abormalities were present to suggest ischemia. Nuclear imaging and interpretation are pending. COMMENTS:
== END 2017-07-18 18:43 | disposition home or self-care (01) ==
LOC: NEPC 03:31 → NEDA 05:09 → NEPGCP 09:17
PROVIDERS: ADMIT Internal Medicine Cardiovascular Disease; ATTEND Internal Medicine Cardiovascular Disease
DX: R07.89 Other chest pain (principal); R00.1 Bradycardia, unspecified; M79.602 Pain in left arm; I11.0 Hypertensive heart disease with heart failure; I50.9 Heart failure, unspecified; I20.9 Angina pectoris, unspecified; E03.9 Hypothyroidism, unspecified; J44.9 Chronic obstructive pulmonary disease, unspecified; Z86.73 Personal history of transient ischemic attack (TIA), and cerebral infarction without residual deficits; Z79.899 Other long term (current) drug therapy; Z79.01 Long term (current) use of anticoagulants; Z87.891 Personal history of nicotine dependence
CPT/HCPCS: 71046; 78452; 80048; 82550; 83735; 84484; 85025; 85610; 85730; 93005; 93017; 96360; 99285; A9502; G0378; J2785; J7030

== ENCOUNTER 2017-10-05 15:07 | Emergency (ER) | payer MEDICARE, OTHER ==
[2017-10-05] VITALS (7 sets, daily range): BP systolic 103–119; BP diastolic 50–87; PULSE 103–128; RESP 20–22; TEMP 98.1; O2SAT 95–98
[~2017-10-05] VITALS: Ht 160 cm; Wt 82.0 kg
[~2017-10-05 15:07] MED LIST changes: +ACID100C PO; +ALBU0.08 INH; -BENZ0.5T PO; -CEFU1TAB20 PO; -CENTCHW4 CHEW; -COZA25TA PO; -GLUC500T4 PO; -HALO5TAB PO; +LEVO50TA4 PO; -LITH300C2 PO; -MAGN100T2 PO; +MEMA1CAP2 PO; -METO25TA3 PO; +METO50TA PO; +POLY17S PO; +POTA20TA5 PO; -TEMA15CA PO; -TURM500C7 PO; +TYLE325T PO; +UMEC1AER INH
[2017-10-05] MEDS ORDERED: SODIUM CHLOR 0.9% 1000 ML INJ 1,000 ML IV SCH (15:30)
[2017-10-05] MEDS ORDERED: DILTIAZEM HCL 60 MG TAB PO ONE (15:30)
--- NOTE | 2017-10-05 15:38 | PD ---
HPI Chief Complaint: Cardiac Complaint Time Seen by Provider: 15:18 Travel History International Travel<30 days: No Contact w/Intl Traveler<30days: No Traveled to known affect area: No History of Present Illness HPI 66-year-old female complains of chest pain shortness of breath. Patient states that she was at a local store and then started having shortness of breath. Patient states that she started having dizziness and sweating and then chest pain subsequently. Patient states that she was feeling her heart racing. Patient states any chest pain substernal pressure with radiation to the base of the neck. Patient denies any fever chills coughing congestion. Patient has history of CHF, hypertension, hypothyroidism And paroxysmal atrial fibrillation. Patient is on Eliquis and metoprolol 50 mg twice a day. Patient was admitted to chest pain center on July 18, 2017. Patient had Lexiscan stress test which showed no obvious abnormality. Patient's [address] Paredes in [place]. PFSH Past Medical History Hx Anticoagulant Therapy: Yes Arthritis: Yes (RA) Atrial Fibrillation: Yes Bipolar Disorder: Yes Heart Rhythm Problems: Yes Cancer: No Cardiac Catheterization: No Cardiovascular Problems: Yes High Cholesterol: No Chest Pain: Yes Congestive Heart Failure: Yes COPD: Yes Cerebrovascular Accident: Yes Dementia: Yes (w/Lewy bodies) Diabetes: No Diminished Hearing: Yes Endocrine: Yes Gastrointestinal Disorders: Yes (constipation, nausea, ) GERD: Yes Genitourinary: Yes (candidiasis, "other salmonella infections") Hypertension: Yes Musculoskeletal: Yes (chronic pain, edema) Psychiatric: Yes (psychosis (hallucinations) not due to substance/known physical condition) Respiratory: Yes (COPD, allergic rhinitis, ) Integumentary: Yes (rash, shingles, ) Immunizations Current: Yes Shingles: Yes Thyroid Disease: Yes Tetanus Vaccination: Unknown Influenza Vaccination: Yes ?: Not Menopausal: Yes Past Surgical History Abdominal Surgery: Yes (GALLBLADDER REMOVAL ) Cardiac Surgery: Yes (A-FIB ABLATION ) Cholecystectomy: Yes Coronary Artery Bypass Graft: No Hysterectomy: Yes Family History Family Myocardial Infarction: Yes Social History Alcohol Use: No Tobacco Use: No (quit 04/27) Substance Use: No Allergies-Medications (Allergen,Severity, Reaction): Coded Allergies: No Known Allergies (Verified Allergy, Unknown, 10/05/17) Reported Meds & Prescriptions Reported Meds & Active Scripts Active Quetiapine (Quetiapine Fumarate) 25 Mg Tab 25 Mg PO DAILY Reported Anoro Ellipta Inh (Umeclidinium/Vilanterol) 62.5-25 Mcg/Act Aero 1 Puff INH DAILY Albuterol Neb (Albuterol Sulfate) 2.5 Mg/3 Ml Neb 3 Ml INH Q4HR PRN Namzaric (Memantine-Donepezil) 28-10 Mg Cap 1 Cap PO HS Potassium Chloride Microencaps 20 Meq Tab 2 Tab PO DAILY Metoprolol Tartrate 50 Mg Tab 50 Mg PO DAILY Losartan (Losartan Potassium) 25 Mg Tab 25 Mg PO BID Polyethylene Glycol 3350 Powder (Polyethylene Glycol) 17 Gram Pow 17 Gm PO DAILY Levothyroxine (Levothyroxine Sodium) 50 Mcg Tab 50 Mcg PO DAILY Eliquis (Apixaban) 5 Mg Tab 5 Mg PO BID Furosemide 40 Mg Tab 40 Mg PO DAILY Review of Systems General / Constitutional: No: Fever Eyes: No: Visual changes HENT: No: Headaches Cardiovascular: Positive: Chest Pain or Discomfort Respiratory: Positive: Shortness of Breath Gastrointestinal: No: Abdominal Pain Genitourinary: No: Dysuria Musculoskeletal: No: Pain Skin: No Rash Neurologic: No: Weakness Psychiatric: No: Depression Endocrine: No: Polydipsia Hematologic/Lymphatic: No: Easy Bruising Physical Exam Narrative GENERAL: Well-nourished, well-developed patient. SKIN: Focused skin assessment warm/dry. HEAD: Normocephalic. EYES: No scleral icterus. No injection or drainage. NECK: Supple, trachea midline. No JVD or lymphadenopathy. CARDIOVASCULAR: Irregularly irregular rate and rhythm without murmurs, gallops, or rubs. RESPIRATORY: Breath sounds equal bilaterally. No accessory muscle use. GASTROINTESTINAL: Abdomen soft, non-tender, nondistended. MUSCULOSKELETAL: No cyanosis, or edema. BACK: Nontender without obvious deformity. No CVA tenderness. Neurologic exam normal. Data Data Last Documented VS Vital Signs Date Time Temp Pulse Resp B/P (MAP) Pulse Ox O2 Delivery O2 Flow Rate FiO2 10/05/17 18:22 127 20 119/78 (92) 98 Nasal Cannula 2.00 10/05/17 15:18 98.1 Orders Orders Electrocardiogram (10/05/17 15:27) Complete Blood Count With Diff (10/05/17 15:27) Comprehensive Metabolic Panel (10/05/17 15:27) Creatine Kinase (Cpk) (10/05/17 15:27) Troponin I (10/05/17 15:27) B-Type Natriuretic Peptide (10/05/17 15:27) Prothrombin Time / Inr (Pt) (10/05/17 15:27) Act Partial Throm Time (Ptt) (10/05/17 15:27) Urinalysis - C+S If Indicated (10/05/17 15:27) Thyroid Stimulating Hormone (10/05/17 15:27) Chest, Single Ap (10/05/17 15:27) Iv Access Insert/Monitor (10/05/17 15:27) Ecg Monitoring (10/05/17 15:27) Oximetry (10/05/17 15:27) Diltiazem (Cardizem) (10/05/17 15:30) Sodium Chlor 0.9% 1000 Ml Inj (Ns 1000 M (10/05/17 15:30) Metoprolol Tartrate Inj (Lopressor Inj) (10/05/17 17:45) Metoprolol Tartrate Inj (Lopressor Inj) (10/05/17 18:15) Ed Discharge Order (10/05/17 18:48) Labs Laboratory Tests Test 10/05/17 15:10 10/05/17 17:30 White Blood Count 8.6 TH/MM3 Red Blood Count 4.30 MIL/MM3 Hemoglobin 13.3 GM/DL Hematocrit 38.9 % Mean Corpuscular Volume 90.4 FL Mean Corpuscular Hemoglobin 30.8 PG Mean Corpuscular Hemoglobin Concent 34.0 % Red Cell Distribution Width 13.7 % Platelet Count 238 TH/MM3 Mean Platelet Volume 8.0 FL Neutrophils (%) (Auto) 62.0 % Lymphocytes (%) (Auto) 27.7 % Monocytes (%) (Auto) 6.1 % Eosinophils (%) (Auto) 3.5 % Basophils (%) (Auto) 0.7 % Neutrophils # (Auto) 5.3 TH/MM3 Lymphocytes # (Auto) 2.4 TH/MM3 Monocytes # (Auto) 0.5 TH/MM3 Eosinophils # (Auto) 0.3 TH/MM3 Basophils # (Auto) 0.1 TH/MM3 CBC Comment DIFF FINAL Differential Comment Prothrombin Time 10.2 SEC Prothromb Time International Ratio 1.0 RATIO Activated Partial Thromboplast Time 28.9 SEC Blood Urea Nitrogen 16 MG/DL Creatinine 1.20 MG/DL Random Glucose 191 MG/DL Total Protein 7.2 GM/DL Albumin 3.6 GM/DL Calcium Level 9.7 MG/DL Alkaline Phosphatase 73 U/L Aspartate Amino Transf (AST/SGOT) 13 U/L Alanine Aminotransferase (ALT/SGPT) 22 U/L Total Bilirubin 0.3 MG/DL Sodium Level 140 MEQ/L Potassium Level 4.0 MEQ/L Chloride Level 105 MEQ/L Carbon Dioxide Level 27.2 MEQ/L Anion Gap 8 MEQ/L Estimat Glomerular Filtration Rate 45 ML/MIN Total Creatine Kinase 65 U/L Troponin I LESS THAN 0.02 NG/ML B-Type Natriuretic Peptide 110 PG/ML Thyroid Stimulating Hormone 3rd Gen 62.500 uIU/ML Urine Color YELLOW Urine Turbidity CLEAR Urine pH 5.5 Urine Specific [place] 1.025 Urine Protein NEG mg/dL Urine Glucose (UA) NEG mg/dL Urine Ketones TRACE mg/dL Urine Occult Blood LARGE Urine Nitrite NEG Urine Bilirubin NEG Urine Urobilinogen 0.2 MG/DL Urine Leukocyte Esterase NEG Urine RBC 20-24 /hpf Urine WBC 3-5 /hpf Urine Squamous Epithelial Cells 6-8 /hpf Urine Calcium Oxalate Crystals MANY /hpf Urine Bacteria OCC /hpf Microscopic Urinalysis Comment CULT NOT INDICATED MDM Medical Decision Making Medical Screen Exam Complete: Yes Emergency Medical Condition: Yes Medical Record Reviewed: Yes Interpretation(s) 1714 p.m. EKG show atrial fibrillation with RVR rate 131. Last Impressions Chest X-Ray 10/05/17 1527 Signed Impressions: CONCLUSION: Mild cardiomegaly. Clear lungs. 1714 p.m. CBC within normal limits. Creatinine 1.20. GFR 45. Glucose 191. Cardiac enzymes are normal. BNP 110. TSH 62.5. Differential Diagnosis Differential diagnosis including paroxysmal atrial fibrillation, acute exacerbation CHF, angina, HI, PE, pneumothorax. Narrative Course 66-year-old female complains of chest pain, shortness of breath. History of CHF , paroxysmal atrial fibrillation. EKG shows atrial fibrillation with RVR rate 130. On a monitor, patient heart rate run between upper 90s-130s. Normal saline solution 70 cc an hour. Cardizem 60 mg p.o. given. Metoprolol 1.25 mg IV given. Patient metoprolol 1.25 mg IV. Patient's heart rate still up and down however mostly in the 80s and 90s. I spoke with Dr. Solis, patient's 21 dealer. Advise patient to go back to metoprolol 50 mg twice a day. Follow-up with her in the office. Diagnosis Primary Impression: Atypical chest pain Additional Impression: Atrial fibrillation with RVR Patient Instructions: General Instructions Additional Instructions: Continue with all medications as directed. Increase metoprolol to 50 mg twice a day. Follow-up with [facility] dealer. Return if increased heart rate, increasing chest pain and shortness of breath. Med/Other Pt SpecificInfo: Prescription(s) given Disposition: 01 DISCHARGE HOME Condition: Stable Shai Cameron MD October 05, 2017 15:38
[2017-10-05 15:46] LABS: AUTOMATED NEUTROPHIL # 5.3 TH/MM3 (1.8-7.7); BASOPHIL # 0.1 TH/MM3 (0-0.2); BASOPHIL % 0.7 % (0.0-2.0); EOSINOPHIL # 0.3 TH/MM3 (0-0.4); EOSINOPHIL % 3.5 % (0.0-4.0); HEMATOCRIT 38.9 % (35.0-46.0); HEMOGLOBIN 13.3 GM/DL (11.6-15.3); LYMPH % 27.7 % (9.0-44.0); LYMPHOCYTE # 2.4 TH/MM3 (1.0-4.8); MEAN CELL VOLUME 90.4 FL (80.0-100.0); MEAN CORPUSCULAR HEMOGLOBIN 30.8 PG (27.0-34.0); MONO % 6.1 % (0.0-8.0); MONOCYTE # 0.5 TH/MM3 (0-0.9); PLATELET COUNT 238 TH/MM3 (150-450); RED CELL DISTRIBUTION WIDTH 13.7 % (11.6-17.2); WHITE BLOOD COUNT 8.6 TH/MM3 (4.0-11.0)
[2017-10-05 15:57] LABS: CHLORIDE 105 MEQ/L (98-107); SODIUM (NA) 140 MEQ/L (136-145)
[2017-10-05 16:00] LABS: CALCIUM 9.7 MG/DL (8.5-10.1)
--- NOTE | 2017-10-05 16:00 | RADRPT ---
EXAM DATE: 10/05/2017 3:50 PM EDT AGE/SEX: 66 years / Female INDICATIONS: Short of breath. CLINICAL DATA: This is the patient's initial encounter. Patient reports that signs and symptoms have been present for 1 day and indicates a pain score of 1/10. MEDICAL/SURGICAL HISTORY: . Chronic obstructive pulmonary disease. Hypertension. Cerebrovascul ar accident. Atrial fibrillation. Cholecystectomy. Hysterectomy. COMPARISON: Chest x-ray February 06, 2017. FINDINGS: A single AP view of the chest demonstrates the lungs to be symmetrically aerated without evidence of mass, infiltrate or effusion. Mild cardiomegaly. No pulmonary vascular engorgement observed. Osseous structures are intact. CONCLUSION: Mild cardiomegaly. Clear lungs. Electronically signed by: Les Tucker MD 10/05/2017 3:59 PM EDT
[2017-10-05 16:01] LABS: ALBUMIN 3.6 GM/DL (3.4-5.0); BICARBONATE 27.2 MEQ/L (21.0-32.0); BLOOD UREA NITROGEN 16 MG/DL (7-18); GLUCOSE,RANDOM 191 MG/DL (74-106)
[2017-10-05 16:03] LABS: PROTHROMBIN TIME - PATIENT 10.2 SEC (9.8-11.6)
[2017-10-05 16:04] LABS: ALT (GPT) 22 U/L (10-53); AST (GOT) 13 U/L (15-37); GLOMERULAR FILTRATION RATE 45 ML/MIN (>89)
[2017-10-05 16:06] LABS: TOTAL BILIRUBIN ADULT 0.3 MG/DL (0.2-1.0); TOTAL PROTEIN 7.2 GM/DL (6.4-8.2)
[2017-10-05 16:07] LABS: ALKALINE PHOSPHATASE 73 U/L (45-117)
[2017-10-05 16:09] LABS: TROPONIN I LESS THAN 0.02 NG/ML (0.02-0.05)
[2017-10-05] MEDS ORDERED: METOPROLOL TARTRATE 5 MG/5 ML VIAL IV PUSH ONE ×2 (17:45→18:15)
[2017-10-05 18:00] LABS: BILIRUBIN, URINE NEG (NEG); BLOOD, URINE LARGE (NEG); GLUCOSE,URINE NEG (NEG); KETONE, URINE TRACE mg/dL (NEG); NITRITE,URINE NEG (NEG); PH, URINE 5.5 (5.0-8.5); URINE COLOR YELLOW (YELLW/STRAW); URINE LEUKOCYTE ESTERASE NEG (NEG)
[2017-10-05 18:08] LABS: BACTERIA, URINE OCC /hpf; CALCIUM OXALATE CRYSTALS,URINE MANY /hpf
[2017-10-05] MEDS ORDERED: METOPROLOL SUCCINATE 50 MG EXTENDED RELEASE TAB PO ONE (19:15)
--- NOTE | 2017-10-06 13:07 | EKG ---
Date Performed: 10/05/2017 Time Performed: 15:11:59 PTAGE: 66 years EKG: ATRIAL FIBRILLATION WITH RAPID VENTRICULAR RESPONSE MINIMAL ST DEPRESSION ABNORMAL RHYTHM E CG Compared to PREVIOUS TRACING , there is a rhythm change from sinus bradycardia to atrial fibrillation . PREVIOUS TRACIN07/18/2017 10.52 DOCTOR: Ra Woods Interpretating Date/Time 10/06/2017 13:06:41
== END 2017-10-05 19:30 | disposition home or self-care (01) ==
LOC: PHED 15:07
DX: R07.89 Other chest pain (principal); I48.0 Paroxysmal atrial fibrillation; I11.0 Hypertensive heart disease with heart failure; I50.9 Heart failure, unspecified; E03.9 Hypothyroidism, unspecified; J44.9 Chronic obstructive pulmonary disease, unspecified; K21.9 Gastro-esophageal reflux disease without esophagitis; Z86.73 Personal history of transient ischemic attack (TIA), and cerebral infarction without residual deficits; Z87.891 Personal history of nicotine dependence
CPT/HCPCS: 71045; 80053; 81001; 82550; 83880; 84443; 84484; 85025; 85610; 85730; 93005; 96361; 96374; 96376; 99285; J7030